=== PATIENT | female | born 1950 | race Caucasian/White ===

== ENCOUNTER 2018-07-17 07:05 | Outpatient (CLI) | payer MEDICARE ==
[~2018-07-17] VITALS: Ht 167.6 cm; Wt 130.6 kg
[~2018-07-17 07:05] MED LIST: CELLCEPT; GAMMAGARD; HYDROCORTISONE 100 MG/2 ML VIAL (J1720) IV ONE; IMMUNE GLOBULIN 10% 10 GM in APPROPRIATE DILUENT 1 EA IV ONE; IMMUNE GLOBULIN 10% 20 GM in APPROPRIATE DILUENT 1 EA IV ONE; IMMUNE GLOBULIN 10% 40 GM in APPROPRIATE DILUENT 1 EA IV ONE; IMMUNE GLOBULIN 10% 5 GM in APPROPRIATE DILUENT 1 EA IV ONE; MICA40TA PO; NAPR-855 PO; OMEP20CA3 PO; OXYB5TAB10 PO; PLAV1TAB2 PO; VITA200016 PO; VITA50005 PO; ZEBE5TAB PO; ZOLO100T PO
[2018-07-17 07:24] VITALS: BP 131/68
[2018-07-17 08:20] VITALS: BP 143/63
[2018-07-17 08:50] VITALS: BP 122/58
[2018-07-17] MEDS ORDERED: SODIUM CHLORIDE 0.9% INJ 10 ML SYR IV SCH (09:00)
[2018-07-17 09:20] VITALS: BP 121/60
[2018-07-17 10:20] VITALS: BP 154/67
[2018-07-17 11:20] VITALS: BP 183/72
== END 2018-07-17 11:45 | disposition home or self-care (01) ==
LOC: M INFU 07:05
PROVIDERS: ATTEND Internal Medicine
DX: G61.89 Other inflammatory polyneuropathies (principal)
CPT/HCPCS: 96365; 96366; 96375; J1459; J1720

== ENCOUNTER 2018-09-11 07:16 | Outpatient (CLI) | payer MEDICARE ==
[2018-09-11] VITALS (7 sets, daily range): BP systolic 120–153; BP diastolic 60–75
[~2018-09-11] VITALS: Ht 167.6 cm; Wt 130.6 kg
[~2018-09-11 07:16] MED LIST changes: -IMMUNE GLOBULIN 10% 10 GM in APPROPRIATE DILUENT 1 EA IV ONE; -IMMUNE GLOBULIN 10% 20 GM in APPROPRIATE DILUENT 1 EA IV ONE; -IMMUNE GLOBULIN 10% 40 GM in APPROPRIATE DILUENT 1 EA IV ONE; -IMMUNE GLOBULIN 10% 5 GM in APPROPRIATE DILUENT 1 EA IV ONE
[2018-09-11] MEDS ORDERED: IMMUNE GLOBULIN 10% 20 GM in APPROPRIATE DILUENT 1 EA IV ONE (08:00)
[2018-09-11] MEDS ORDERED: IMMUNE GLOBULIN 10% 10 GM in APPROPRIATE DILUENT 1 EA IV ONE (08:00)
[2018-09-11] MEDS ORDERED: IMMUNE GLOBULIN 10% 5 GM in APPROPRIATE DILUENT 1 EA IV ONE (08:00)
[2018-09-11] MEDS ORDERED: IMMUNE GLOBULIN 10% 40 GM in APPROPRIATE DILUENT 1 EA IV ONE (08:00)
[2018-09-11] MEDS ORDERED: SODIUM CHLORIDE 0.9% INJ 10 ML SYR IV SCH (09:00)
[2018-09-11] MEDS ORDERED: CELL500T PO ×2 (09:40→09:41)
[2018-09-11] MEDS ORDERED: [UNRECOGNIZED DRUG - CODE] IV (09:43)
== END 2018-09-11 12:15 | disposition home or self-care (01) ==
LOC: M INFU 07:16
PROVIDERS: ATTEND Internal Medicine
DX: G61.89 Other inflammatory polyneuropathies (principal)
CPT/HCPCS: 96365; 96366; 96375; J1459; J1720

== ENCOUNTER 2018-10-09 09:07 | Outpatient (CLI) | payer MEDICARE ==
[~2018-10-09] VITALS: Ht 167.6 cm; Wt 130.6 kg
[~2018-10-09 09:07] MED LIST changes: +CELL500T PO; -HYDROCORTISONE 100 MG/2 ML VIAL (J1720) IV ONE; -OMEP20CA3 PO; +OMEP20CA4 PO; +SODIUM CHLORIDE 0.9% INJ 10 ML SYR IV SCH; +[UNRECOGNIZED DRUG - CODE] IV
[2018-10-09 09:10] VITALS: BP 143/65
[2018-10-09] MEDS ORDERED: HYDROCORTISONE 100 MG/2 ML VIAL (J1720) IV ONE (09:30)
[2018-10-09] MEDS ORDERED: IMMUNE GLOBULIN 10% 20 GM in APPROPRIATE DILUENT 1 EA IV ONE (10:00)
[2018-10-09] MEDS ORDERED: IMMUNE GLOBULIN 10% 10 GM in APPROPRIATE DILUENT 1 EA IV ONE (10:00)
[2018-10-09] MEDS ORDERED: IMMUNE GLOBULIN 10% 40 GM in APPROPRIATE DILUENT 1 EA IV ONE (10:00)
[2018-10-09] MEDS ORDERED: IMMUNE GLOBULIN 10% 5 GM in APPROPRIATE DILUENT 1 EA IV ONE (10:00)
== END 2018-10-09 09:40 | disposition home or self-care (01) ==
LOC: M INFU 09:07
PROVIDERS: ATTEND Internal Medicine
DX: G61.81 Chronic inflammatory demyelinating polyneuritis (principal)

== ENCOUNTER → 2018-11-06 | Outpatient (CLI) | payer MEDICARE ==
[~2018-11-06] VITALS: Ht 167.6 cm; Wt 130.0 kg
[2018-11-06] VITALS (7 sets, daily range): BP systolic 117–147; BP diastolic 55–68
[~2018-11-06] MED LIST changes: +HYDROCORTISONE 100 MG/2 ML VIAL (J1720) IV ONE; +IMMUNE GLOBULIN 10% 10 GM in APPROPRIATE DILUENT 1 EA IV ONE; +IMMUNE GLOBULIN 10% 20 GM in APPROPRIATE DILUENT 1 EA IV ONE; +IMMUNE GLOBULIN 10% 40 GM in APPROPRIATE DILUENT 1 EA IV ONE; +IMMUNE GLOBULIN 10% 5 GM in APPROPRIATE DILUENT 1 EA IV ONE; +OMEP20CA3 PO; -OMEP20CA4 PO
== END ==
LOC: M INFU 07:30
PROVIDERS: ATTEND Nurse Practitioner
DX: G61.81 Chronic inflammatory demyelinating polyneuritis (principal)
CPT/HCPCS: 96523; J1459; J1720

== ENCOUNTER 2019-01-01 07:25 | Outpatient (CLI) | payer MEDICARE ==
[~2019-01-01] VITALS: Ht 167.6 cm; Wt 130.0 kg
[~2019-01-01 07:25] MED LIST changes: -HYDROCORTISONE 100 MG/2 ML VIAL (J1720) IV ONE; -IMMUNE GLOBULIN 10% 10 GM in APPROPRIATE DILUENT 1 EA IV ONE; -IMMUNE GLOBULIN 10% 20 GM in APPROPRIATE DILUENT 1 EA IV ONE; -IMMUNE GLOBULIN 10% 40 GM in APPROPRIATE DILUENT 1 EA IV ONE; -IMMUNE GLOBULIN 10% 5 GM in APPROPRIATE DILUENT 1 EA IV ONE; -OMEP20CA3 PO; +OMEP20CA4 PO; -SODIUM CHLORIDE 0.9% INJ 10 ML SYR IV SCH
[2019-01-01] MEDS ORDERED: VITA1WAF PO (07:58)
[2019-01-01] MEDS ORDERED: VENO20IN5 IV (07:58)
[2019-01-01] MEDS ORDERED: HYDROCORTISONE 100 MG/2 ML VIAL (J1720) IV ONE (08:00)
[2019-01-01 08:10] VITALS: BP 144/76
[2019-01-01] MEDS ORDERED: IMMUNE GLOBULIN 10% 10 GM in APPROPRIATE DILUENT 1 EA IV ONE (08:30)
[2019-01-01] MEDS ORDERED: IMMUNE GLOBULIN 10% 5 GM in APPROPRIATE DILUENT 1 EA IV ONE (08:30)
[2019-01-01] MEDS ORDERED: IMMUNE GLOBULIN 10% 20 GM in APPROPRIATE DILUENT 1 EA IV ONE (08:30)
[2019-01-01] MEDS ORDERED: IMMUNE GLOBULIN 10% 40 GM in APPROPRIATE DILUENT 1 EA IV ONE (08:30)
[2019-01-01 08:40] VITALS: BP 130/62
[2019-01-01] MEDS ORDERED: SODIUM CHLORIDE 0.9% INJ 10 ML SYR IV SCH (09:00)
[2019-01-01 09:10] VITALS: BP 128/70
[2019-01-01 09:40] VITALS: BP 142/62
[2019-01-01 10:50] VITALS: BP 132/70
[2019-01-01 12:00] VITALS: BP 132/76
== END 2019-01-01 12:00 | disposition home or self-care (01) ==
LOC: M INFU 07:25
PROVIDERS: ATTEND Nurse Practitioner
DX: G61.81 Chronic inflammatory demyelinating polyneuritis (principal)
CPT/HCPCS: 96365; 96366; 96375; J1459; J1720

== ENCOUNTER 2019-03-05 13:23 | Outpatient (CLI) | payer MEDICARE ==
[~2019-03-05] VITALS: Ht 167.6 cm; Wt 130.0 kg
[~2019-03-05 13:23] MED LIST changes: +VENO20IN5 IV; +VITA1WAF PO
[2019-03-05 13:30] VITALS: BP 158/68
[2019-03-05] MEDS ORDERED: IMMUNE GLOBULIN 10% 5 GM in IV 1 EA IV ONE (14:00)
[2019-03-05] MEDS ORDERED: SODIUM CHLORIDE 0.9% INJ 10 ML SYR IV ONE (14:00)
[2019-03-05] MEDS ORDERED: IMMUNE GLOBULIN 10% 20 GM in IV 1 EA IV ONE (14:00)
[2019-03-05] MEDS ORDERED: IMMUNE GLOBULIN 10% 40 GM in IV 1 EA IV ONE (14:00)
[2019-03-05] MEDS ORDERED: IMMUNE GLOBULIN 10% 10 GM in IV 1 EA IV ONE (14:00)
[2019-03-05] MEDS ORDERED: HYDROCORTISONE 100 MG/2 ML VIAL (J1720) IV ONE (14:00)
[2019-03-05 14:45] VITALS: BP 137/63
[2019-03-05 15:15] VITALS: BP 143/67
[2019-03-05 15:45] VITALS: BP 136/66
[2019-03-05 16:15] VITALS: BP 155/74
[2019-03-05 18:00] VITALS: BP 168/77
== END 2019-03-05 18:00 | disposition home or self-care (01) ==
LOC: M INFU 13:23
PROVIDERS: ATTEND Nurse Practitioner
DX: G61.81 Chronic inflammatory demyelinating polyneuritis (principal)
CPT/HCPCS: 96365; 96366; 96375; J1459; J1720

== ENCOUNTER 2019-05-01 07:12 | Outpatient (CLI) | payer MEDICARE ==
[~2019-05-01] VITALS: Ht 167.6 cm; Wt 130.0 kg
[~2019-05-01 07:12] MED LIST changes: +OMEP-172 PO; -OMEP20CA4 PO
[2019-05-01 07:15] VITALS: BP 138/59
[2019-05-01] MEDS ORDERED: IMMUNE GLOBULIN 10% 40 GM in IV 1 EA IV ONE (07:30)
[2019-05-01] MEDS ORDERED: IMMUNE GLOBULIN 10% 20 GM in IV 1 EA IV ONE (07:30)
[2019-05-01] MEDS ORDERED: HYDROCORTISONE 100 MG/2 ML VIAL (J1720 PER 1) IV ONE (07:30)
[2019-05-01] MEDS ORDERED: IMMUNE GLOBULIN 10% 10 GM in IV 1 EA IV ONE (07:30)
[2019-05-01] MEDS ORDERED: IMMUNE GLOBULIN 10% 5 GM in IV 1 EA IV ONE (07:30)
[2019-05-01 08:30] VITALS: BP 136/61
[2019-05-01 09:00] VITALS: BP 132/60
[2019-05-01] MEDS ORDERED: SODIUM CHLORIDE 0.9% INJ 10 ML SYR IV SCH (09:00)
[2019-05-01 09:30] VITALS: BP 131/66
[2019-05-01 11:45] VITALS: BP 158/72
== END 2019-05-01 11:45 | disposition home or self-care (01) ==
LOC: M INFU 07:12
PROVIDERS: ATTEND Nurse Practitioner
DX: G61.81 Chronic inflammatory demyelinating polyneuritis (principal)
CPT/HCPCS: 96365; 96366; J1459; J1720

== ENCOUNTER 2019-06-26 07:00 | Outpatient (CLI) | payer MEDICARE ==
[~2019-06-26] VITALS: Ht 167.6 cm; Wt 130.0 kg
[2019-06-26] VITALS (7 sets, daily range): BP systolic 118–135; BP diastolic 56–64
[~2019-06-26 07:00] MED LIST changes: -OMEP-172 PO; +OMEP1CAP73 PO
[2019-06-26] MEDS ORDERED: IMMUNE GLOBULIN 10% 20 GM in IV 1 EA IV ONE (07:30)
[2019-06-26] MEDS ORDERED: IMMUNE GLOBULIN 10% 10 GM in IV 1 EA IV ONE (07:30)
[2019-06-26] MEDS ORDERED: HYDROCORTISONE 100 MG/2 ML VIAL (J1720 PER 1) IV ONE (07:30)
[2019-06-26] MEDS ORDERED: IMMUNE GLOBULIN 10% 40 GM in IV 1 EA IV ONE (07:30)
[2019-06-26] MEDS ORDERED: IMMUNE GLOBULIN 10% 5 GM in IV 1 EA IV ONE (07:30)
[2019-06-26] MEDS ORDERED: IRON65TA2 PO (07:39)
[2019-06-26] MEDS ORDERED: SODIUM CHLORIDE 0.9% INJ 10 ML SYR IV SCH (09:00)
== END 2019-06-26 11:15 | disposition home or self-care (01) ==
LOC: M INFU 07:00
PROVIDERS: ATTEND Nurse Practitioner
DX: G61.81 Chronic inflammatory demyelinating polyneuritis (principal)
CPT/HCPCS: 96365; 96366; J1459; J1642; J1720

== ENCOUNTER 2019-08-21 06:57 | Outpatient (CLI) | payer MEDICARE ==
[~2019-08-21] VITALS: Ht 167.6 cm; Wt 130.0 kg
[~2019-08-21 06:57] MED LIST changes: +IRON65TA2 PO
[2019-08-21] MEDS ORDERED: IMMUNE GLOBULIN 10% 10 GM in IV 1 EA IV ONE (07:15)
[2019-08-21] MEDS ORDERED: IMMUNE GLOBULIN 10% 40 GM in IV 1 EA IV ONE (07:15)
[2019-08-21] MEDS ORDERED: HYDROCORTISONE 100 MG/2 ML VIAL (J1720 PER 1) IV ONE (07:15)
[2019-08-21] MEDS ORDERED: IMMUNE GLOBULIN 10% 5 GM in IV 1 EA IV ONE (07:15)
[2019-08-21] MEDS ORDERED: IMMUNE GLOBULIN 10% 20 GM in IV 1 EA IV ONE (07:15)
[2019-08-21] MEDS ORDERED: SODIUM CHLORIDE 0.9% INJ 10 ML SYR IV PRN (07:30)
[2019-08-21 07:40] VITALS: BP 131/60
[2019-08-21 08:15] VITALS: BP 126/59
[2019-08-21 08:45] VITALS: BP 119/58
[2019-08-21] MEDS ORDERED: SODIUM CHLORIDE 0.9% INJ 10 ML SYR IV SCH (09:00)
[2019-08-21 09:15] VITALS: BP 123/57
[2019-08-21 10:15] VITALS: BP 119/58
[2019-08-21 11:22] VITALS: BP 145/65
== END 2019-08-21 11:25 | disposition home or self-care (01) ==
LOC: M INFU 06:57
PROVIDERS: ATTEND Nurse Practitioner
DX: G61.81 Chronic inflammatory demyelinating polyneuritis (principal)
CPT/HCPCS: 96365; 96366; J1459; J1642; J1720

== ENCOUNTER 2019-10-16 06:50 | Outpatient (CLI) | payer MEDICARE ==
[~2019-10-16] VITALS: Ht 167.6 cm; Wt 110.9 kg
[2019-10-16] VITALS (7 sets, daily range): BP systolic 130–155; BP diastolic 60–70
[2019-10-16] MEDS ORDERED: CYMB60CA3 PO (07:07)
[2019-10-16] MEDS ORDERED: IMMUNE GLOBULIN 10% 5 GM in IV 1 EA IV ONE (07:15)
[2019-10-16] MEDS ORDERED: IMMUNE GLOBULIN 10% 10 GM in IV 1 EA IV ONE (07:15)
[2019-10-16] MEDS ORDERED: HYDROCORTISONE 100 MG/2 ML VIAL (J1720 PER 1) IV ONE (07:15)
[2019-10-16] MEDS ORDERED: IMMUNE GLOBULIN 10% 40 GM in IV 1 EA IV ONE (07:15)
[2019-10-16] MEDS ORDERED: SODIUM CHLORIDE 0.9% INJ 10 ML SYR IV PRN (07:15)
[2019-10-16] MEDS ORDERED: IMMUNE GLOBULIN 10% 20 GM in IV 1 EA IV ONE (07:15)
[2019-10-16] MEDS ORDERED: SODIUM CHLORIDE 0.9% INJ 10 ML SYR IV SCH (09:00)
== END 2019-10-16 12:00 | disposition home or self-care (01) ==
LOC: M INFU 06:50
PROVIDERS: ATTEND Nurse Practitioner
DX: G61.81 Chronic inflammatory demyelinating polyneuritis (principal)
CPT/HCPCS: 96365; 96366; 96375; J1459; J1642; J1720

== ENCOUNTER 2019-12-11 07:00 | Outpatient (CLI) | payer MEDICARE, OTHER ==
[~2019-12-11 07:00] MED LIST changes: +CYMB60CA3 PO
[2019-12-11] MEDS ORDERED: HYDROCORTISONE 100 MG/2 ML VIAL (J1720 PER 1) As Ordered ONE (07:35)
[2019-12-11] MEDS ORDERED: IMMUNE GLOBULIN 10% 20GM 200ML BOTTLE (PRIVIGEN) (J1459 PER 500MG) As Ordered ONE (07:36)
[2019-12-11] MEDS ORDERED: IMMUNE GLOBULIN 10% 10GM 100ML BOTTLE (PRIVIGEN) (J1459 PER 500MG) As Ordered ONE (07:36)
[2019-12-11] MEDS ORDERED: IMMUNE GLOBULIN 10% 40GM 400ML BOTTLE (PRIVIGEN) (J1459 PER 500MG) As Ordered ONE (07:36)
[2019-12-11] MEDS ORDERED: IMMUNE GLOBULIN 10% 5GM 50ML BOTTLE (PRIVIGEN) (J1459 PER 500MG) As Ordered ONE (07:36)
== END 2019-12-11 12:15 | disposition home or self-care (01) ==
LOC: M INFU 07:00
PROVIDERS: ATTEND Nurse Practitioner
DX: G61.81 Chronic inflammatory demyelinating polyneuritis (principal)
CPT/HCPCS: 96365; 96366; 96375; J1459; J1642; J1720

== ENCOUNTER 2020-02-01 11:33 | Inpatient (IN) | payer MEDICARE, OTHER ==
[~2020-02-01] VITALS: Ht 167.6 cm; Wt 109.1 kg
[2020-02-01] MEDS ORDERED: ASPI81CH10 (11:47)
[2020-02-01] MEDS ORDERED: ALEN70TA74 PO (11:47)
[2020-02-01] MEDS ORDERED: PREG75CA2 PO (11:47)
[2020-02-01] MEDS ORDERED: OXYC1TAB23 PO (11:47)
--- NOTE | 2020-02-01 12:48 | REPVR ---
PROCEDURE INFORMATION: Exam: XR Left Tibia and Fibula Exam date and time: 02/01/2020 12:33 PM Age: 69 years old Clinical indication: Other: FX yesterday with redux. ; Additional info: FX yesterday with reduction TECHNIQUE: Imaging protocol: XR Left tibia and fibula. Views: 2 views. COMPARISON: No relevant prior studies available. FINDINGS: Limitations: Visualization is largely obscured by an overlying cast. Bones/joints: There are acute fractures of the proximal and distal fibula, nondisplaced proximally and moderately displaced distally. The ankle mortise is disrupted, with lateral displacement of the distal talus in relation to the tibia, with considerable widening medially. A moderate plantar calcaneal enthesophyte is present. Soft tissues: The soft tissues appear swollen. IMPRESSION: Casted leg with fractures of the proximal distal fibula and disruption of the mortise. Electronically signed by: Piter Bennett On 02/01/2020 12:47:47 PM
[2020-02-01] MEDS ORDERED: MORPHINE 4 MG/ML 1ML VIAL/SYRINGE (J2270) IV ONE (13:00)
[2020-02-01] MEDS ORDERED: ONDANSETRON 4MG/2ML VIAL IV ONE (13:15)
[2020-02-01] MEDS: NS 1,000 ML IV SCH ×2 (13:18→22:14)
[2020-02-01] MEDS ORDERED: propofoL 200 MG/20 ML VIAL As Ordered ONE (13:49)
[2020-02-01] MEDS ORDERED: propofoL 200 MG/20 ML VIAL IV ONE (14:15)
[2020-02-01] MEDS ORDERED: ACETAMINOPHEN TAB 650MG DOSE (2X325MG) PO PRN (14:45)
[2020-02-01] MEDS ORDERED: PERCOCET 5MG/325MG TAB PO PRN (14:45)
[2020-02-01] MEDS ORDERED: BISO5TAB14 PO (15:08)
[2020-02-01] MEDS ORDERED: DULO30CA9 PO (15:08)
[2020-02-01] MEDS ORDERED: ASPI81TA26 PO (15:08)
[2020-02-01] MEDS ORDERED: DRIS50003 PO (15:08)
--- NOTE | 2020-02-01 15:10 | HPEPDOC ---
[facility] Medical History & Physical Date of Admission Feb 01, 2020 Date of Service: Feb 01, 2020 History and Physical Chief complaint: Transferred from [facility] after experiencing left ankle pain History of present illness: Patient is a 69-year-old female with a PMHx of HTN, Overactive bladder, Depression, Osteoporosis, Neuropathy, Colon CA (Dx: 03/2019; s/p Surgery and Chemotherapy), GERD who presented to [facility] for left ankle fracture. Patient has had a recent left ankle fracture 7 weeks ago, which was splinted by the ER providers and subsequently casted by orthopedics surgery Brittny Negron. Patient had a cast remain in place for approximately 5 weeks followed by a boot for 2 weeks. She has had one week that was uneventful. Patient reported that 01/30 AM she was at home and had fallen down the stairs, approximately 6 steps. Patient denied any loss of consciousness. She reported that she began to experience sudden and sever left ankle pain and was taken to the emergency room via EMS. Patient was evaluated at [facility] emergency room where she received an x-ray of her ankle. Patient was attempted to have a reduction and splinting and then was subsequently sent home at the care of her family. Patient notes that she cannot use crutches because of her neuropathy. Patient had Percocet from a prior injury but was not prescribed any additional medications. Patient was at home this morning 01/31 and is experiencing worsening left ankle pain and was brought to [facility] ER. Upon arrival, patient had orthopedic surgery consulted, who have casted the left ankle. Patient reports that currently her pain is 8-9/10, continuous throbbing nature, without any alleviating factors and aggravated by movement. Currently patient denies any headache, nausea, vomiting, chest pain, shortness breath, palpitations, cough, abdominal pain, constipation, diarrhea, urinary dis comfort or any recent fevers/chills. Patient reports that her appetite is too well and reports some fluctuations in her weight. Past Medical History: HTN, Overactive bladder, Depression, Osteoporosis, Neuropathy, Colon CA (Dx: 03/2019; s/p Surgery and Chemotherapy), GERD Past Surgical History: Colon cancer resection of partial colon and liver metastasis Appendectomy Cholecystectomy Hysterectomy Allergies: See below Medications: See below Family History: - Mother with a history of breast cancer and father with a history of heart disease Social History: - Denies the use of alcohol, tobacco or illicit drugs - Denies recent travel or sick contacts - Lives with ; she reports that her daughter and son live close by, as well as her sister who lives very close to her - Occupation; patient is currently retired. She used to work as a chair of human resources at [employer] Review of Systems: 10 point review of systems complete, all negative otherwise stated in HPI Physical exam: - Vitals: BP [147/55], HR [89], RR [14], Sat [100%NC3L], Temp [98.3F] - General: Lying in bed, Speaking in full sentences, AAOx3 - HEENT: NC, AT, PERRLA - CVS: RRR, +S1S2 - Lungs: Fair air entry bilaterally, No appreciable wheezing / rales / rhonchi - Abdomen: Soft, Non-distended, Non-tender - Extremities: R leg without edema / calf tenders, L leg with casting in place - Neuro: No focal motor or sensory deficit; 5/5 at UE bilaterally, 5/5 at RLE, 4/5 strength of L leg - limited by pain, moving toes - Skin: No visible rashes Imaging: XR Left Tib/Fib (01/31): Casted leg with fractures of the proximal distal fibula and disruption of the mortise. Assessment and Plan: Left distal fibula fracture - s/p casting (01/31) - Patient had initially fallen down the stairs on 01/30 morning after she had stumbled - No loss of consciousness - Currently, patient reports that her leg is still in pain - Patient has had casting completed this afternoon by Dr. Keegan Borrego of orthopedic surgery - Will be admitting patient to the hospital service for pain control and physical therapy - Will start Percocet for pain control - Will consider acute rehabilitation unit - Orthopedic surgery will remain on consultation HTN - BP currently well controlled - c/w Bisoprolol and Telmisartan with holding parameters Overactive bladder - c/w Oxybutynin Depression - c/w Duloxetine Osteoporosis - Patient Neuropathy - Patient reports that she takes ASA 81 and Plavix for her legs, but denies any imaging studies that have suggested. Peripheral vascular disease - Patient also reports that she takes mycophenolate mofetil for her lower extremity neuropathy - Is unclear what the definitive diagnosis of her neuropathy is will request records from outpatient facility - c/w Lyrica and Mycophenolate mofetil Colon CA - Dx: 03/2019 - s/p Surgery; patient has had partial resection of her colon including of the liver metastasis - s/p Chemotherapy for 12 week course, last dose was 10/2019 - Patient follows with [facility], Dr. Cora Mcdermott of oncology - Patient has had repeat abdominal CT scan imaging completed 11/2019, which was noted to be normal as per the patient GERD - c/w Omeprazole DVT prophylaxis - Will start Lovenox Vital Signs Vital Signs Date Time Temp Pulse Resp B/P (MAP) Pulse Ox O2 Delivery O2 Flow Rate FiO2 02/01/20 14:46 84 16 138/65 (89) 97 Room Air 02/01/20 14:10 02/01/20 11:43 98.3 Home Medications Scheduled Ascorbic Acid/Ascorbate Sodium (Vitamin C 500 mg Wafer) 500 Mg Wafer, 1 WAF PO TID Clopidogrel Bisulfate (Plavix) 75 Mg Tab, 75 MG PO DAILY Duloxetine Hcl (Cymbalta) 60 Mg Capsule.dr, 60 MG PO DAILY Ergocalciferol (Vitamin D2) (Vitamin D2) 50,000 Unit Cap, 50,000 UNIT PO 2XW Ferrous Sulfate (Iron) 325 Mg Tablet, 1 TAB PO DAILY Immun Glob G(IgG)/Gly/Iga Ov50 (Gammagard Liquid 10% Vial) 300 Ml Vial, 75 GM IV ASDIRECTED Mycophenolate Mofetil (Cellcept) 500 Mg Tablet, 1,500 MG PO QAM Mycophenolate Mofetil (Cellcept) 500 Mg Tablet, 1,000 MG PO QHS Naproxen (Naproxen) 375 Mg Tab, 375 MG PO NEEDED Omeprazole (Omeprazole) 20 Mg Cap, 20 MG PO DAILY Oxybutynin Chloride (Oxybutynin Chloride) 5 Mg Tab, 5 MG PO TID Telmisartan (Micardis) 40 Mg Tab, 40 MG PO DAILY Miscellaneous Medications Alendronate Sodium (Alendronate Sodium) 70 Mg Tablet Aspirin (Aspirin) 81 Mg Tab.chew Bisoprolol Fumarate (Zebeta) 5 Mg Tab, 5 MG PO Oxycodone HCl/Acetaminophen (Oxycodone-Acetaminophen 5-325) 1 Each Tablet Pregabalin (Pregabalin) 75 Mg Capsule Allergies Coded Allergies: meloxicam (Verified Allergy, Unknown, rash, 02/01/20) DEANNE PAN MD Feb 01, 2020 15:10
[2020-02-01 15:25] VITALS: BP 179/74
[2020-02-01 15:30] VITALS: BP 142/76
[2020-02-01] MEDS: PERCOCET 5MG/325MG TAB PO PRN ×2 (16:00→22:14)
[2020-02-01] MEDS: oxyBUTYnin 5 MG TAB PO SCH ×2 (16:48→22:14)
[2020-02-01] MEDS ORDERED: ASPIRIN 81 MG ENTERIC TAB PO SCH (21:00)
[2020-02-01] MEDS ORDERED: MYCOPHENOLATE MOFETIL 250 MG CAP (J7517) PO SCH (21:00)
[2020-02-01] MEDS ORDERED: DULoxetine 30 MG CAP (CYMBALTA) PO SCH (21:00)
[2020-02-01 22:00] VITALS: BP 150/68
[2020-02-01] MEDS: PREGABALIN 75 MG CAP(LYRICA) PO SCH (22:13)
[2020-02-02 07:18] LABS: HEMATOCRIT 29.7 % (36.0-47.0); HEMOGLOBIN 9.3 g/dl (12.0-15.5); MEAN CORPUSCULAR HEMOGLOBIN 29.4 pg (27.0-33.0); MEAN CORPUSCULAR HGB CONC 31.3 g/dl (32.0-36.5); PLATELET COUNT, AUTOMATED 103 10^3/uL (150-450); RED BLOOD COUNT 3.16 10^6/uL (4.00-5.40); WHITE BLOOD COUNT 4.1 10^3/uL (4.0-10.0)
[2020-02-02 07:37] LABS: BLOOD UREA NITROGEN 9 MG/DL (7-18); CALCIUM LEVEL 8.4 MG/DL (8.8-10.2); CARBON DIOXIDE LEVEL 28 MEQ/L (21-32); CHLORIDE LEVEL 112 MEQ/L (98-107); CREATININE FOR GFR 0.71 MG/DL (0.55-1.30); GLOMERULAR FILTRATION RATE > 60.0 (>45); GLUCOSE, FASTING 91 MG/DL (70-100); MAGNESIUM LEVEL 2.1 MG/DL (1.8-2.4); POTASSIUM SERUM 4.3 MEQ/L (3.5-5.1); SODIUM LEVEL 145 MEQ/L (136-145)
[2020-02-02] MEDS ORDERED: CLOPIDOGREL 75 MG TAB PO SCH (09:00)
[2020-02-02] MEDS ORDERED: FERROUS SULFATE 325MG TAB PO SCH (09:00)
[2020-02-02] MEDS ORDERED: MOM 30ML SUSPENSION UDC PO SCH (09:00)
[2020-02-02] MEDS ORDERED: MIRALAX *UNIT DOSE* 17GM PACKET PO SCH (09:00)
[2020-02-02] MEDS ORDERED: bisoproloL fumarate 5 MG TAB PO SCH (09:00)
[2020-02-02] MEDS ORDERED: ENOXAPARIN 40MG/0.4ML SYRINGE (J1650 PER 10MG) SC SCH (09:00)
[2020-02-02] MEDS ORDERED: DULoxetine 30 MG CAP (CYMBALTA) PO SCH (09:00)
[2020-02-02] MEDS ORDERED: OMEPRAZOLE 20 MG CAP PO SCH (09:00)
[2020-02-02] MEDS ORDERED: MYCOPHENOLATE MOFETIL 250 MG CAP (J7517) PO SCH (09:00)
[2020-02-02] MEDS ORDERED: TELMISARTAN 20 MG TAB PO SCH (09:00)
[2020-02-02] MEDS: oxyBUTYnin 5 MG TAB PO SCH (09:01)
[2020-02-02] MEDS: PREGABALIN 75 MG CAP(LYRICA) PO SCH (09:01)
[2020-02-02] MEDS: PERCOCET 5MG/325MG TAB PO PRN ×2 (09:03→15:18)
[2020-02-02 09:04] VITALS: BP 150/68
--- NOTE | 2020-02-02 11:31 | IPNPDOC ---
Text Note Date of Service The patient was seen on 02/02/20. 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 Patient was admitted to the hospital service after she had received casting emergency room by orthopedic surgery. Orthopedic surgery remains on consultation. Patient has had a recent left ankle fracture 7 weeks ago, which was splinted by the ER providers and subsequently casted by orthopedics surgery Brittny Negron. Patient had a cast remain in place for approximately 5 weeks followed by a boot for 2 weeks. She has had one week that was uneventful. Patient was seen and examined at the bedside. Currently, patient reports that her pain is better controlled but not relieved completely. Patient denies any chest pain, short of breath, palpitations, nausea, vomiting, abdominal pain, diarrhea, or urinary discomfort. Objective: Vitals (See below) General: Lying in bed, no acute distress, comfortable, AAOx3 HEENT: NC, AT CVS: +S1S2 Lungs: Fair air entry b/l, no visual wheezing, rhonchi or rales Abdomen: Soft, ND, NT Extremities: - Edema, - Calf tenderness, left lower extremity with casting in place Assessment and plan: Left distal fibula fracture - s/p casting (01/31) - Patient had initially fallen down the stairs on 01/30 morning after she had stumbled - No loss of consciousness - Reports improvement of pain - Patient has had casting completed by Dr. Keegan Borrego of orthopedic surgery on 01/31 - c/w PT and OT / ARU screen - c/w Pain control - Orthopedic surgery will remain on consultation HTN - BP currently well controlled - c/w Bisoprolol and Telmisartan with holding parameters Overactive bladder - c/w Oxybutynin Depression - c/w Duloxetine Osteoporosis - Patient Neuropathy - 2/2 CIDP - Patient reports that she takes ASA 81 and Plavix for her legs, but denies any imaging studies that have suggested peripheral vascular disease - Provide with patient that she has chronic inflammatory demyelinating polyneuropathy and follows with a neurologist in [place], Dr. Vicente - c/w Lyrica and Mycophenolate mofetil Colon CA - Dx: 03/2019 - s/p Surgery; patient has had partial resection of her colon including of the liver metastasis - s/p Chemotherapy for 12 week course, last dose was 10/2019 - Patient follows with [facility], Dr. Cora Mcdermott of oncology - Patient has had repeat abdominal CT scan imaging completed 11/2019, which was noted to be normal as per the patient GERD - c/w Omeprazole DVT prophylaxis - c/w Lovenox Disposition: - Anticipate discharge within the next 24-48 hours VS,Fishbone, I+O VS, Fishbone, I+O Laboratory Tests 02/02/20 06:56 Vital Signs Date Time Temp Pulse Resp B/P (MAP) Pulse Ox O2 Delivery O2 Flow Rate FiO2 02/02/20 09:33 18 Room Air 02/02/20 09:04 86 150/68 02/01/20 22:00 97.7 96 02/01/20 14:10 I&O- Last 24 Hours up to 6 AM 02/02/20 05:59 Intake Total 1180 ml Output Total 1600 ml Balance -420 ml DEANNE PAN MD Feb 02, 2020 11:31
[2020-02-02] MEDS ORDERED: LOVE1INJ SC (12:36)
[2020-02-02] MEDS ORDERED: OXYC1TAB23 PO (12:36)
--- NOTE | 2020-02-02 12:40 | DS.PDOC ---
Discharge Summary General Date of Admission Feb 01, 2020 at 14:44 Date of Discharge 02/02/2020 Discharge Summary PROCEDURES PERFORMED DURING STAY: Testing performed in the emergency room on 01/[address] 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 Patient was admitted to the hospital service after she had received casting emergency room by orthopedic surgery. Orthopedic surgery remains on consultation. Patient has had a recent left ankle fracture 7 weeks ago, which was splinted by the ER providers and subsequently casted by orthopedics surgery Brittny Negron. Patient had a cast remain in place for approximately 5 weeks followed by a boot for 2 weeks. She has had one week that was uneventful. HOSPITAL COURSE: Left distal fibula fracture - s/p casting (01/31) - Patient had initially fallen down the stairs on 01/30 morning after she had stumbled - No loss of consciousness - Reports improvement of pain - Patient has had casting completed by Dr. Keegan Borrego of orthopedic surgery on 01/31 - c/w PT and OT; will be transitioned to acute rehabilitation unit for continued physical therapy - c/w Pain control - Orthopedic surgery will remain on consultation HTN - BP currently well controlled - c/w Bisoprolol and Telmisartan with holding parameters Overactive bladder - c/w Oxybutynin Depression - c/w Duloxetine Osteoporosis - Patient Neuropathy - 2/2 CIDP - Patient reports that she takes ASA 81 and Plavix for her legs, but denies any imaging studies that have suggested peripheral vascular disease - Provide with patient that she has chronic inflammatory demyelinating polyneuropathy and follows with a neurologist in [place], Dr. Vicente - c/w Lyrica and Mycophenolate mofetil Colon CA - Dx: 03/2019 - s/p Surgery; patient has had partial resection of her colon including of the liver metastasis - s/p Chemotherapy for 12 week course, last dose was 10/2019 - Patient follows with [facility], Dr. oCra Mcdermott of oncology - Patient has had repeat abdominal CT scan imaging completed 11/2019, which was noted to be normal as per the patient GERD - c/w Omeprazole DVT prophylaxis - c/w Lovenox DISCHARGE MEDICATIONS: Please see below. ALLERGIES: Please see below. PHYSICAL EXAMINATION ON DISCHARGE: Vitals (See below) General: Lying in bed, no acute distress, comfortable, AAOx3 HEENT: NC, AT CVS: +S1S2 Lungs: Fair air entry b/l, no visual wheezing, rhonchi or rales Abdomen: Soft, nondistended and nontender Extremities: No evidence of edema, - Calf tenderness, left lower extremity with casting in place LABORATORY DATA: Please see below. ACTIVITY: [As tolerated]. DISCHARGE PLAN: Follow-up with Dr. Cruz upon transfer to acute rehabilitation and Dr. Borrego within 7 days Remain complaint with treatment plan and medications Return to the ER if you experience any problems DISPOSITION: Acute rehabilitation unit DISCHARGE CONDITION: [Stable]. TIME SPENT ON DISCHARGE: 35 minutes. Vital Signs/I&Os Vital Signs Date Time Temp Pulse Resp B/P (MAP) Pulse Ox O2 Delivery O2 Flow Rate FiO2 02/02/20 09:33 18 Room Air 02/02/20 09:04 86 150/68 02/01/20 22:00 97.7 96 02/01/20 14:10 I&O- Last 24 Hours up to 6 AM 02/02/20 06:00 Intake Total 1180 ml Output Total 1600 ml Balance -420 ml Laboratory Data Labs 24H Laboratory Tests 2 02/02/20 06:56: Nucleated Red Blood Cells % (auto) 0.0, Anion Gap 5L, Glomerular Filtration Rate > 60.0, Calcium Level 8.4L, Magnesium Level 2.1 CBC/BMP Laboratory Tests 02/02/20 06:56 Discharge Medications Scheduled Alendronate Sodium (Alendronate Sodium) 70 Mg Tablet, 70 MG PO 1XWK, (Reported) SUNDAYS Ascorbic Acid/Ascorbate Sodium (Vitamin C 500 mg Wafer) 500 Mg Wafer, 500 MG PO TID, (Reported) Aspirin (Aspirin EC) 81 Mg Tablet., 81 MG PO QHS, (Reported) Bisoprolol Fumarate (Bisoprolol Fumarate) 5 Mg Tablet, 5 MG PO DAILY, (Reported) Clopidogrel Bisulfate (Plavix) 75 Mg Tab, 75 MG PO DAILY, (Reported) Duloxetine Hcl (Cymbalta) 60 Mg Capsule.dr, 60 MG PO DAILY, (Reported) Duloxetine Hcl (Duloxetine HCl) 30 Mg Capsule.dr, 30 MG PO QHS, (Reported) Enoxaparin Sodium (Lovenox) 40 Mg/0.4 Ml Syringe, 40 MG SC DAILY Ergocalciferol (Vitamin D2) (Drisdol) 1,250 Mcg Capsule, 1,250 MCG PO 2XW, (Reported) SHELLEY ROQUE Ferrous Sulfate (Iron) 325 Mg Tablet, 325 MG PO DAILY, (Reported) Immun Glob G(IgG)/Gly/Iga Ov50 (Gammagard Liquid 10% Vial) 300 Ml Vial, 75 GM IV ASDIRECTED, (Reported) EVERY 8 WEEKS. DUE TO GET ON 02/05. Mycophenolate Mofetil (Cellcept) 500 Mg Tablet, 1,500 MG PO DAILY, (Reported) Mycophenolate Mofetil (Cellcept) 500 Mg Tablet, 1,000 MG PO QHS, (Reported) Omeprazole (Omeprazole) 20 Mg Cap, 20 MG PO DAILY, (Reported) Oxybutynin Chloride (Oxybutynin Chloride) 5 Mg Tab, 5 MG PO TID, (Reported) Pregabalin (Pregabalin) 75 Mg Capsule, 150 MG PO BID, (Reported) Telmisartan (Micardis) 40 Mg Tab, 40 MG PO DAILY, (Reported) Scheduled PRN Naproxen (Naproxen) 375 Mg Tab, 375 MG PO Q12H PRN for PAIN, (Reported) Oxycodone HCl/Acetaminophen (Oxycodone-Acetaminophen 5-325) 1 Each Tablet, 1-2 TAB PO Q4H PRN for PAIN Allergies Coded Allergies: meloxicam (Verified Allergy, Unknown, rash, 02/01/20) DEANNE PAN MD Feb 02, 2020 12:40
[2020-02-02 14:00] VITALS: BP 126/58
[2020-02-03] MEDS ORDERED: FLUBLOK(EGG FREE)(QUAD)INFLUENZA VACC 0.5ML SYRINGE 18YRS & OLDER IM ONE (09:00)
[2020-02-03] MEDS ORDERED: VITAMIN D 50,000 UNITS CAPSULE (ERGOCALCIFEROL 1.25MG) PO SCH (09:00)
[2020-02-03] MEDS ORDERED: PREVNAR 13 VACCINE SYRINGE IM ONE (09:00)
--- NOTE | 2020-02-03 15:44 | CR ---
DATE OF CONSULTATION: 02/01/2020 CHIEF COMPLAINT: Left ankle fracture. HISTORY OF PRESENT ILLNESS: This 69-year-old female was consulted and admitted today at 1 p.m. by the emergency department at [facility], Suzi Callejas. The provider at [facility] had called me in regard to long-leg or short-leg splint for ankle fracture. Originally they had attempted a closed reduction, it sounds like, and splinting; however, the patient was not coping at home and presented to the hospital this morning. Patient recently had a metatarsal fracture, which Rosi Pedraza at the [facility] group were following for that. She had a trip and fall yesterday at 9 a.m. No other injury. No head injury or loss of consciousness. MEDICAL HISTORY: 1. Neuropathy. 2. Colon cancer with chemotherapy. MEDICATIONS: Omeprazole, Plavix, oxybutynin, Fosamax, Micardis, Zebeta, CellCept, Iron, ASA. ALLERGIES: MOBIC.. SURGICAL HISTORY: 1. Appendectomy. 2. Gallbladder removal. 3. Hysterectomy. 4. Colon cancer resection. SOCIAL HISTORY: She lives in [place]. Lives with her . Lives in a house. Nonsmoker. PHYSICAL EXAMINATION: A 69-year-old female. She has an elevated body mass index (BMI). She is alert and oriented times three. She has a closed ankle fracture on the left side. There is already moderate swelling. No wrinkling of the skin. No fracture blisters but moderate swelling on either side of the ankle with fairly moderate amount of bruising. No pain in the foot. Pain at the ankle. No pain proximally. Calves are soft. No pain at the knee. Normal sensation and motor foot of the foot. Foot is warm and well perfused. Good pedal pulses. Strong dorsalis pedis pulses. She can wiggle her toes. Radiographs were reviewed, AP, lateral, and oblique of the tibia-fibula. This shows an obvious an obvious Rocha C ankle fracture with what looks to be lateral displacement of the talus underneath the tibia. There is widening of the mortise. There is a fibula fracture that is oblique. No obvious medial malleolus fracture. ASSESSMENT AND PLAN: This 69-year-old female has an ankle fracture with obvious disruption of the syndesmosis and lateral talar shift that has not been properly reduced. I recommend closed reduction and splinting. We performed that for her today. She will have to be admitted under the hospitalist. I have communicated to Britta, the QNP at [facility]. She will ask the hospitalist to admit her due to her inability cope at home as well as inability to use the crutches. She will eventually need open reduction, internal fixation for this highly unstable ankle fracture pattern. She understands the risks. In the meantime, she will be made strict nonweightbearing, strict elevation, pending surgery within the next 1-2 weeks, ideally when the swelling comes down. Patient understands. There are no further questions. PROCEDURE NOTE: We talked about the pros, cons, risks, benefits of closed reduction and splinting in the emergency department. Specific risks include, but are not limited to, cast irritation, cast jha, failure to achieve or maintain closed reduction, as well as damage to surrounding structures. She understands and signed the consent form for the procedure. Conscious sedation was achieved by the emergency department surgeon concession attendant after a time-out was performed. Longitudinal traction as well as flexion of the hip and knee was performed, and 3-sided plaster of Magda splint with appropriate padding and over-wrapped with 6-inch Nikolai bandage was then placed, and then foot was placed in slight plantarflexion and 3-point molding was achieved to shift the talus back medially underneath the distal tibia. Radiographs were taken using the mini C-arm fluoroscopy, which seemed to be appropriately reduced to remove the pressure off the cartilage. Splint was allowed to fully harden allowing pictures to be saved onto the system. She was neurovascularly intact with normal sensation and motor function and as such normal capillary refill. MTDD
--- NOTE | 2020-02-08 15:50 | REP ---
C-ARM VIEWS OF THE LEFT ANKLE TECHNIQUE: Two C-arm views of the left ankle are performed status post reduction of ankle dislocation. FINDINGS: The tibia and fibula appear well aligned with the talus with the ankle mortise appearing anatomic. There is an overlying cast. There is an oblique fracture of the distal fibula with mild lateral displacement. FLUOROSCOPY TIME: 11 seconds. MTDD
== END 2020-02-02 15:45 | DRG 563 ==
LOC: M ED 11:33 → EDBD 11:33 → M ED INP 14:44 → ENRESERV 14:56 → M MS5PR 15:20
PROVIDERS: ADMIT Internal Medicine; ATTEND Internal Medicine
PROC: 0QSJXZZ Reposition Right Fibula, External Approach (ICD-10-PCS; principal; 2020-02-01)
DX: S82.492A Other fracture of shaft of left fibula, initial encounter for closed fracture (principal); I10 Essential (primary) hypertension; N32.81 Overactive bladder; F32.9 Major depressive disorder, single episode, unspecified; M81.0 Age-related osteoporosis without current pathological fracture; G62.9 Polyneuropathy, unspecified; Z85.038 Personal history of other malignant neoplasm of large intestine; K21.9 Gastro-esophageal reflux disease without esophagitis; Z90.49 Acquired absence of other specified parts of digestive tract; Z92.21 Personal history of antineoplastic chemotherapy; Z79.02 Long term (current) use of antithrombotics/antiplatelets; Z79.899 Other long term (current) drug therapy; Z88.6 Allergy status to analgesic agent; W10.9XXA Fall (on) (from) unspecified stairs and steps, initial encounter; Y92.009 Unspecified place in unspecified non-institutional (private) residence as the place of occurrence of the external cause; Y99.8 Other external cause status

== ENCOUNTER 2020-02-02 13:59 | Inpatient (IN) | payer MEDICARE, OTHER ==
[~2020-02-02] VITALS: Ht 167.6 cm; Wt 122.5 kg
[~2020-02-02 13:59] MED LIST changes: +ALEN70TA74 PO; +ASPI81CH10; +ASPI81TA26 PO; +BISO5TAB14 PO; +DRIS50003 PO; +DULO30CA9 PO; +LOVE1INJ SC; +OXYC1TAB23 PO; +PREG75CA2 PO
--- NOTE | 2020-02-02 15:21 | HPEPDOC ---
Saw Setter Note DATE OF ADMISSION: 02-02-20 DATE OF SERVICE: 02-02-20 TIME OF ADMISSION: Please refer to physician's admission order. SOURCE OF ADMISSION INFORMATION: [facility] record and patient CHIEF COMPLAINT: left ankle fracture HISTORY OF PRESENT ILLNESS: 69F pmh HTN, osteoporosis, depression, peripheral neuropathy from CIDP, colon cancer s/p chemo and resection, overactive bladder who presented to [facility] ED on 02-01-20 with left ankle pain following a fracture sustained 7 weeks prior and splinted, but fell down set of stairs at home on 01-31-20 with worsening of her ankle fracture. She was seen by orthopedics who casted her ankle and made her NWB. Labs confirmed anemia, her blood pressure was elevated, and she was placed on supplemental 02 for desaturations. She was evaluated by therapy, found to have impairments in mobility and ADLs and deemed medical appropriate for discharge to ARU on 02-02-20. REVIEW OF SYSTEMS: The following is a completed review of systems and has been reviewed. Review of systems otherwise unremarkable. PAIN: Patient self reports left ankle pain EYES: No recent vision changes EARS, NOSE, & THROAT: No throat pain, or dysphagia, or rhinorrhea CARDIOVASCULAR: Denies chest pain or palpitations PULMONARY: Denies shortness of breath GASTROINTESTINAL: Denies constipation/diarrhea GENITOURINARY: denies dysuria MUSCULOSKELETAL:left ankle fracture NEUROLOGICAL:+peripheral polyneuropathy HEMATOLOGICAL: denies easy bruising SKIN: no rash PSYCHIATRIC: Unremarkable All other review of systems found to be negative. PAST MEDICAL HISTORY: as per hpi PAST SURGICAL HISTORY: Hysterectomy, appendectomy, cholecystectomy, colon cancer s/p resection ALLERGIES: Please see below. MEDICATIONS: Please see below. FAMILY HISTORY: Cardiac and cancer SOCIAL HISTORY:no etoh/illicit drugs/smoking DIET: low sodium PHYSICAL EXAMINATION: VITAL SIGNS: Please see below. GENERAL: Pleasant and cooperative. No acute distress. obese HEENT: PERRL. Extraocular movements intact. Clear conjunctiva CARDIOVASCULAR: Regular rate and rhythm. No murmurs, rubs, or gallops LUNGS: Clear to auscultation bilaterally. No wheezes. No rhonchi ABDOMEN: Soft, nontender, nondistended. Positive bowel sounds. Normal active bowel sounds NEUROLOGICAL: Alert and oriented times three. Cranial nerves II through XII grossly intact. Sensation decreased to light touch bilat LE EXTREMITIES: 5\5 strength bilateral upper extremities. 5\5 strength right lower extremity. >3/5 left hip flexor, able to wiggle toes (limited due to casting) 5 SKIN: intact LABORATORY DATA: Please see below. IMAGING:Imaging documentation personally reviewed by record FUNCTIONAL STATUS: Premorbid: Independent with all activities of daily life as well as mobility On Admission:Min assist for bed mobility, functional transfers, dressing, ambulation 2 feet GOALS: Mod-I household distances, toileting, functional transfers, dressing, to ileting ASSESSMENT:69-year-old F with past medical history of HTN and colon cancer who presents status post fall with left fibula fracture PLAN: 1. Rehab- PT/OT advance mobility and ADLs, strengthen/stretch/maintain ROM all 4 limbs, NWB LLE 2. 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 CArdiac- hx of HTN with elevated BPs on inpatient unit, will c/u to monitor address pain,a nd adjust meds prn- medicine consulted to asssit in overall management -c/u ASA and plavix, hx of PVD or CAD unknown 4. Resp- monitor for infection, encourage incentive spirometry 5. - overactive bladder c/u Ditropan, monitor for infection 6. Ortho- NWB to LLE for ankle fracture, ortho consulted 7. GI ppx- Prilosec 8. DVT ppx- Lovenox 9. Pain- c/u Lyrica, tylenol, oxycodone prn 10. Psych- cu Cymbalta for depression 11. Dispo- TBD POST ADMISSION PHYSICIAN EVALUATION: Medical and functional status: Description of medical status, medical assessment: As above. Rehabilitation diagnosis and current and prior cold morbid medical conditions as above. Risk of complications and plans to mitigate them as above. Description of functional status current status is as above. Prior status as above. Status compared to preadmission: There are no clinically significant differences between the patient's current status and the information described on the preadmission screening document. Treatment plan anticipated: Treatment plan is as described above. Required disciplines including physical therapy, occupational therapy, others as noted above. Intensity of services: 3 hours a day, 6 days a week. Special considerations: There are no specific special or safety considerations that would likely preclude immediate implementation of an intensive rehabilitation program or subsequently influence the plan of care. ATTESTATION: Considering all the information above, it is my best judgment that this patient requires intensive rehabilitation therapy as described above and an inpatient hospital environment due to the complexity of nursing, medical, and rehabilitation needs required by the patient. Furthermore, this patient can reasonably be expected to participate in an benefit from an inpatient rehabilitation stay with an interdisciplinary team approach to the delivery of rehabilitation care under the direction and supervision of rehabilitation physician. PROGNOSIS: Excellent. ESTIMATED LENGTH OF STAY:10-14 days. PROJECTED DISCHARGE DESTINATION: Home with family support and any durable medical equipment required to increase functional safety and mobility. TIME SPENT COUNSELING AND COORDINATING INITIAL CARE: Greater than 70 minutes. Vital Signs Vital Signs Date Time Temp Pulse Resp B/P (MAP) Pulse Ox O2 Delivery O2 Flow Rate FiO2 02/02/20 15:54 96.8 77 17 136/62 (86) 99 Room Air Home Medications Scheduled Alendronate Sodium (Alendronate Sodium) 70 Mg Tablet, 70 MG PO 1XWK, (Reported) SUNDAYS Ascorbic Acid/Ascorbate Sodium (Vitamin C 500 mg Wafer) 500 Mg Wafer, 500 MG PO TID, (Reported) Aspirin (Aspirin EC) 81 Mg Tablet.dr, 81 MG PO QHS, (Reported) Bisoprolol Fumarate (Bisoprolol Fumarate) 5 Mg Tablet, 5 MG PO DAILY, (Reported) Clopidogrel Bisulfate (Plavix) 75 Mg Tab, 75 MG PO DAILY, (Reported) Duloxetine Hcl (Cymbalta) 60 Mg Capsule.dr, 60 MG PO DAILY, (Reported) Duloxetine Hcl (Duloxetine HCl) 30 Mg Capsule.dr, 30 MG PO QHS, (Reported) Enoxaparin Sodium (Lovenox) 40 Mg/0.4 Ml Syringe, 40 MG SC DAILY Ergocalciferol (Vitamin D2) (Drisdol) 1,250 Mcg Capsule, 1,250 MCG PO 2XW, (Reported) TU, TH Ferrous Sulfate (Iron) 325 Mg Tablet, 325 MG PO DAILY, (Reported) Immun Glob G(IgG)/Gly/Iga Ov50 (Gammagard Liquid 10% Vial) 300 Ml Vial, 75 GM IV ASDIRECTED, (Reported) EVERY 8 WEEKS. DUE TO GET ON 02/05. Mycophenolate Mofetil (Cellcept) 500 Mg Tablet, 1,500 MG PO DAILY, (Reported) Mycophenolate Mofetil (Cellcept) 500 Mg Tablet, 1,000 MG PO QHS, (Reported) Omeprazole (Omeprazole) 20 Mg Cap, 20 MG PO DAILY, (Reported) Oxybutynin Chloride (Oxybutynin Chloride) 5 Mg Tab, 5 MG PO TID, (Reported) Pregabalin (Pregabalin) 75 Mg Capsule, 150 MG PO BID, (Reported) Telmisartan (Micardis) 40 Mg Tab, 40 MG PO DAILY, (Reported) Scheduled PRN Naproxen (Naproxen) 375 Mg Tab, 375 MG PO Q12H PRN for PAIN, (Reported) Oxycodone HCl/Acetaminophen (Oxycodone-Acetaminophen 5-325) 1 Each Tablet, 1-2 TAB PO Q4H PRN for PAIN Allergies Coded Allergies: meloxicam (Verified Allergy, Unknown, rash, 02/01/20) A-FIB/CHADSVASC A-FIB History Current/History of A-Fib/PAF?: No HELEN CHACKO MD Feb 02, 2020 15:21
[2020-02-02] MEDS ORDERED: BISACODYL 10 MG SUPP PR PRN (15:30)
[2020-02-02] MEDS ORDERED: MOM 30ML SUSPENSION UDC PO PRN (15:30)
[2020-02-02 15:54] VITALS: BP 136/62
[2020-02-02] MEDS: oxyBUTYnin 5 MG TAB PO SCH ×2 (18:13→21:53)
[2020-02-02] MEDS: oxyCODONE 5MG TAB PO PRN ×2 (18:52→21:53)
[2020-02-02 20:16] VITALS: BP 131/90
[2020-02-02] MEDS: DOCUSATE SODIUM 100 MG CAP PO SCH (21:00)
[2020-02-02] MEDS: SENNA 8.6 MG TAB (SENOKOT) PO SCH (21:00)
[2020-02-02] MEDS: ASPIRIN 81 MG ENTERIC TAB PO SCH (21:52)
[2020-02-02] MEDS: ACETAMINOPHEN 500 MG TAB PO SCH (21:53)
[2020-02-02] MEDS: PREGABALIN 75 MG CAP(LYRICA) PO SCH (21:54)
[2020-02-02] MEDS: DULoxetine 30 MG CAP (CYMBALTA) PO SCH (21:54)
[2020-02-02] MEDS: MYCOPHENOLATE MOFETIL 250 MG CAP (J7517) PO SCH (21:55)
[2020-02-03] MEDS: oxyCODONE 5MG TAB PO PRN ×3 (03:26→21:50)
[2020-02-03 06:13] VITALS: BP 151/77
[2020-02-03 06:14] LABS: BASO % 0.2 % (0.0-1.0); EOS # 0.1 10^3/uL (0.0-0.5); EOS % 2.2 % (0.0-3.0); HEMATOCRIT 30.9 % (36.0-47.0); HEMOGLOBIN 9.3 g/dl (12.0-15.5); LYMPH # 1.3 10^3/uL (1.5-5.0); LYMPH % 26.2 % (24.0-44.0); MEAN CORPUSCULAR HEMOGLOBIN 28.1 pg (27.0-33.0); MEAN CORPUSCULAR HGB CONC 30.1 g/dl (32.0-36.5); MEAN CORPUSCULAR VOLUME 93.4 fl (80.0-96.0); MONO # 0.6 10^3/uL (0.0-0.8); MONO % 12.2 % (0.0-5.0); PLATELET COUNT, AUTOMATED 125 10^3/uL (150-450); RED BLOOD COUNT 3.31 10^6/uL (4.00-5.40)
[2020-02-03 06:38] LABS: ALBUMIN 2.7 GM/DL (3.2-5.2); ALT/SGPT 21 U/L (12-78); BILIRUBIN,TOTAL 0.6 MG/DL (0.2-1.0); BLOOD UREA NITROGEN 10 MG/DL (7-18); CARBON DIOXIDE LEVEL 26 MEQ/L (21-32); CHLORIDE LEVEL 110 MEQ/L (98-107); CREATININE FOR GFR 0.74 MG/DL (0.55-1.30); GLOMERULAR FILTRATION RATE > 60.0 (>45); GLUCOSE, FASTING 108 MG/DL (70-100); POTASSIUM SERUM 4.4 MEQ/L (3.5-5.1); SODIUM LEVEL 140 MEQ/L (136-145); TOTAL PROTEIN 6.1 GM/DL (6.4-8.2)
[2020-02-03] MEDS: ENOXAPARIN 40MG/0.4ML SYRINGE (J1650 PER 10MG) SC SCH (07:51)
[2020-02-03] MEDS: DOCUSATE SODIUM 100 MG CAP PO SCH ×2 (07:52→21:00)
[2020-02-03] MEDS: PREGABALIN 75 MG CAP(LYRICA) PO SCH ×2 (07:52→21:49)
[2020-02-03] MEDS: DULoxetine 30 MG CAP (CYMBALTA) PO SCH ×2 (07:52→21:51)
[2020-02-03] MEDS: TELMISARTAN 20 MG TAB PO SCH (07:53)
[2020-02-03] MEDS: bisoproloL fumarate 5 MG TAB PO SCH (07:55)
[2020-02-03] MEDS: ACETAMINOPHEN 500 MG TAB PO SCH ×3 (07:56→21:49)
[2020-02-03] MEDS: FERROUS SULFATE 325MG TAB PO SCH (07:56)
[2020-02-03] MEDS: CLOPIDOGREL 75 MG TAB PO SCH (07:56)
[2020-02-03] MEDS: oxyBUTYnin 5 MG TAB PO SCH ×3 (07:56→21:54)
[2020-02-03] MEDS: MYCOPHENOLATE MOFETIL 250 MG CAP (J7517) PO SCH ×2 (07:57→21:55)
[2020-02-03] MEDS: OMEPRAZOLE 20 MG CAP PO SCH (07:57)
--- NOTE | 2020-02-03 08:01 | HPEPDOC ---
[facility] Medical History & Physical Date of Admission Feb 03, 2020 Date of Service: Feb 03, 2020 Attending Physician: FELIPE LIMA MD History and Physical CHIEF COMPLAINT: ankle fracture HISTORY OF PRESENT ILLNESS: Patient is a 69-year-old female with a PMHx of HTN, Overactive bladder, Depression, Osteoporosis, Neuropathy, Colon CA (Dx: 03/2019; s/p Surgery and Chemotherapy), GERD who presented to [facility] for left ankle fracture. Patient has had a recent left ankle fracture 7 weeks ago, which was splinted by the ER providers and subsequently casted by orthopedics surgery. Patient had a cast remain in place for approximately 5 weeks followed by a boot for 2 weeks. She has had one week that was uneventful. On 01/30. Patient sustained a fall down the stairs with worsening pain over prior ankle fracture. She returned to [facility], orthopedic service casted her ankle and recommended she be nonweightbearing. She was evaluated by therapy and deemed appropriate for discharge to acute rehabilitation unit on 02/01. PAST MEDICAL HISTORY: 1. Neuropathy. 2. Colon cancer with chemotherapy. 3. HTN PAST SURGICAL HISTORY: 1. Appendectomy. 2. Gallbladder removal. 3. Hysterectomy. 4. Colon cancer resection. SOCIAL HISTORY: Patient denies smoking Patient denies etoh use Patient denies illicit drug use FAMILY HISTORY: patient reports hx of cancer and heart disease but unable to specify ALLERGIES: Please see below. REVIEW OF SYSTEMS: CONSTITUTIONAL: patient denies fevers, chills HEENT: patient denies blurred vision, loss of vision, headache,. CARDIOVASCULAR: patient denies chest pain, palpitations. RESPIRATORY: patient denies shortness of breath, cough, hemoptysis. GASTROINTESTINAL: patient denies abdominal pain, n/v/d, blood in stool. GENITOURINARY: patient denies dysuria, discharge. SKIN: patient denies rashes. MUSCULOSKELETAL: l ankle fracture, casted NEUROLOGICAL: patient denies focal weakness, numbness, seizures. PSYCHIATRIC: patient denies SI/HI. ENDOCRINE: patient denies polyuria, heat intolerance, cold intolerance. HEMATOLOGIC/LYMPHATIC: patient denies easy bruising. HOME MEDICATIONS: Please see below. PHYSICAL EXAMINATION: VITAL SIGNS: please see below General: NAD, comfortable HEENT: PERRLA, EOMI, sclerae clear Neck: supple, normal ROM, no JVD Respiratory: lungs CTAB, no wheeze, no rales, no crackles CVS: RRR, normal S1, S2, no murmurs Abdo: soft, no masses, no hepatosplenomegaly, BS+, no rebound tenderness Extremities: no edema, pulses 2+ MSK: in wheelchair, L ankle casted Neuro: no focal neuro deficits, moving all 4 extremities, CN2-12 intact. Psych: calm, cooperative, AAO x 3 LABORATORY DATA: See below. MICROBIOLOGY: Please see below. ASSESSMENT: 69-year-old female with history of hypertension, colon cancer, and uropathy admitted to ARU for a rehab Fracture was casted. Patient is nonweightbearing. PLAN: Left distal fibula fracture - s/p casting (01/31) - Patient had initially fallen down the stairs on 01/30 morning after she had stumbled - No loss of consciousness - Reports improvement of pain - Patient has had casting completed by Dr. 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 Vicente - c/w Lyrica and Mycophenolate mofetil Colon CA - Dx: 03/2019 - s/p Surgery; patient has had partial resection of her colon including of the liver metastasis - s/p Chemotherapy for 12 week course, last dose was 10/2019 - Patient follows with [facility], Dr. Cora Mcdermott of oncology - Patient has had repeat abdominal CT scan imaging completed 11/2019, which was noted to be normal as per the patient GERD - c/w Omeprazole DVT prophylaxis - c/w Lovenox Vital Signs Vital Signs Date Time Temp Pulse Resp B/P (MAP) Pulse Ox O2 Delivery O2 Flow Rate FiO2 9/29/20 06:13 97.6 89 17 151/77 (101) 96 Room Air Laboratory Data Labs 24H Laboratory Tests 2 02/03/20 06:01: Immature Granulocyte % (Auto) 0.2, Neutrophils (%) (Auto) 59.0, Lymphocytes (%) (Auto) 26.2, Monocytes (%) (Auto) 12.2H, Eosinophils (%) (Auto) 2.2, Basophils (%) (Auto) 0.2, Neutrophils # (Auto) 3.0, Lymphocytes # (Auto) 1.3L, Monocytes # (Auto) 0.6, Eosinophils # (Auto) 0.1, Basophils # (Auto) 0.0, Nucleated Red Blood Cells % (auto) 0.0, Anion Gap 4L, Glomerular Filtration Rate > 60.0, Calcium Level 9.0, Total Bilirubin 0.6, Aspartate Amino Transf (AST/SGOT) 31, Alanine Aminotransferase (ALT/SGPT) 21, Alkaline Phosphatase 108, Total Protein 6.1L, Albumin 2.7L, Albumin/Globulin Ratio 0.8L CBC/BMP Laboratory Tests 02/03/20 06:01 Home Medications Scheduled Alendronate Sodium (Alendronate Sodium) 70 Mg Tablet, 70 MG PO 1XWK SUNDAYS Ascorbic Acid/Ascorbate Sodium (Vitamin C 500 mg Wafer) 500 Mg Wafer, 500 MG PO TID Aspirin (Aspirin EC) 81 Mg Tablet.dr, 81 MG PO QHS Bisoprolol Fumarate (Bisoprolol Fumarate) 5 Mg Tablet, 5 MG PO DAILY Clopidogrel Bisulfate (Plavix) 75 Mg Tab, 75 MG PO DAILY Duloxetine Hcl (Cymbalta) 60 Mg Capsule.dr, 60 MG PO DAILY Duloxetine Hcl (Duloxetine HCl) 30 Mg Capsule.dr, 30 MG PO QHS Enoxaparin Sodium (Lovenox) 40 Mg/0.4 Ml Syringe, 40 MG SC DAILY Ergocalciferol (Vitamin D2) (Drisdol) 1,250 Mcg Capsule, 1,250 MCG PO 2XW , Ferrous Sulfate (Iron) 325 Mg Tablet, 325 MG PO DAILY Immun Glob G(IgG)/Gly/Iga Ov50 (Gammagard Liquid 10% Vial) 300 Ml Vial, 75 GM IV ASDIRECTED EVERY 8 WEEKS. DUE TO GET ON 02/05. Mycophenolate Mofetil (Cellcept) 500 Mg Tablet, 1,500 MG PO DAILY Mycophenolate Mofetil (Cellcept) 500 Mg Tablet, 1,000 MG PO QHS Omeprazole (Omeprazole) 20 Mg Cap, 20 MG PO DAILY Oxybutynin Chloride (Oxybutynin Chloride) 5 Mg Tab, 5 MG PO TID Pregabalin (Pregabalin) 75 Mg Capsule, 150 MG PO BID Telmisartan (Micardis) 40 Mg Tab, 40 MG PO DAILY Scheduled PRN Naproxen (Naproxen) 375 Mg Tab, 375 MG PO Q12H PRN for PAIN Oxycodone HCl/Acetaminophen (Oxycodone-Acetaminophen 5-325) 1 Each Tablet, 1-2 TAB PO Q4H PRN for PAIN Allergies Coded Allergies: meloxicam (Verified Allergy, Unknown, rash, 02/01/20) A-FIB/CHADSVASC A-FIB History Current/History of A-Fib/PAF?: No Current PO Anticoag Therapy: No FELIPE LIMA MD Feb 03, 2020 08:01
[2020-02-03] MEDS ORDERED: FLUBLOK(EGG FREE)(QUAD)INFLUENZA VACC 0.5ML SYRINGE 18YRS & OLDER IM ONE (09:00)
[2020-02-03] MEDS ORDERED: PREVNAR 13 VACCINE SYRINGE IM ONE (09:00)
[2020-02-03 14:00] VITALS: BP 140/63
[2020-02-03] MEDS ORDERED: PILL CUTTER 1 EACH XX PRN (16:00)
[2020-02-03 20:00] VITALS: BP 134/63
[2020-02-03] MEDS: SENNA 8.6 MG TAB (SENOKOT) PO SCH (21:00)
[2020-02-03] MEDS: ASPIRIN 81 MG ENTERIC TAB PO SCH (21:51)
[2020-02-04 06:30] VITALS: BP 110/58
[2020-02-04] MEDS: TELMISARTAN 20 MG TAB PO SCH (07:42)
[2020-02-04] MEDS: PREGABALIN 75 MG CAP(LYRICA) PO SCH ×2 (07:43→21:17)
[2020-02-04] MEDS: bisoproloL fumarate 5 MG TAB PO SCH (07:43)
[2020-02-04] MEDS: MYCOPHENOLATE MOFETIL 250 MG CAP (J7517) PO SCH ×2 (07:43→21:17)
[2020-02-04] MEDS: OMEPRAZOLE 20 MG CAP PO SCH (07:44)
[2020-02-04] MEDS: DULoxetine 30 MG CAP (CYMBALTA) PO SCH ×2 (07:44→21:16)
[2020-02-04] MEDS: FERROUS SULFATE 325MG TAB PO SCH (07:44)
[2020-02-04] MEDS: CLOPIDOGREL 75 MG TAB PO SCH (07:44)
[2020-02-04] MEDS: ACETAMINOPHEN 500 MG TAB PO SCH ×3 (07:44→21:16)
[2020-02-04] MEDS: DOCUSATE SODIUM 100 MG CAP PO SCH ×2 (07:44→21:00)
[2020-02-04] MEDS: ENOXAPARIN 40MG/0.4ML SYRINGE (J1650 PER 10MG) SC SCH (07:45)
[2020-02-04 08:03] LABS: BASO % 0.4 % (0.0-1.0); EOS # 0.1 10^3/uL (0.0-0.5); EOS % 2.2 % (0.0-3.0); HEMATOCRIT 32.4 % (36.0-47.0); HEMOGLOBIN 9.8 g/dl (12.0-15.5); LYMPH # 1.2 10^3/uL (1.5-5.0); LYMPH % 26.7 % (24.0-44.0); MEAN CORPUSCULAR HEMOGLOBIN 27.8 pg (27.0-33.0); MEAN CORPUSCULAR HGB CONC 30.2 g/dl (32.0-36.5); MONO # 0.4 10^3/uL (0.0-0.8); MONO % 9.9 % (0.0-5.0); NEUTROPHILS # 2.7 10^3/uL (1.5-8.5); NEUTROPHILS % 60.6 % (36.0-66.0); PLATELET COUNT, AUTOMATED 153 10^3/uL (150-450); RED BLOOD COUNT 3.52 10^6/uL (4.00-5.40); WHITE BLOOD COUNT 4.5 10^3/uL (4.0-10.0)
[2020-02-04 08:22] LABS: BLOOD UREA NITROGEN 11 MG/DL (7-18); CALCIUM LEVEL 9.2 MG/DL (8.8-10.2); CARBON DIOXIDE LEVEL 28 MEQ/L (21-32); CHLORIDE LEVEL 108 MEQ/L (98-107); GLOMERULAR FILTRATION RATE > 60.0 (>45); GLUCOSE, FASTING 99 MG/DL (70-100); POTASSIUM SERUM 4.1 MEQ/L (3.5-5.1); SODIUM LEVEL 142 MEQ/L (136-145)
[2020-02-04] MEDS: oxyBUTYnin 5 MG TAB PO SCH ×3 (09:00→21:17)
--- NOTE | 2020-02-04 12:43 | IPNPDOC ---
PM&R Progress Note DATE OF SERVICE: Feb 03, 2020 Structural Drafter Progress Note Subjective: PAtient reporting her ankle is more sore today and that the oxycodone seems to help, but that she only gets relief for a couple of hours. REVIEW OF SYSTEMS: The following is a completed review of systems and has been reviewed. Review of systems otherwise unremarkable. PAIN: Patient self reports left ankle pain EYES: No recent vision changes EARS, NOSE, & THROAT: No throat pain, or dysphagia, or rhinorrhea CARDIOVASCULAR: Denies chest pain or palpitations PULMONARY: Denies shortness of breath GASTROINTESTINAL: Denies constipation/diarrhea GENITOURINARY: denies dysuria MUSCULOSKELETAL:left ankle fracture NEUROLOGICAL:+peripheral polyneuropathy HEMATOLOGICAL: denies easy bruising SKIN: no rash PSYCHIATRIC: Unremarkable All other review of systems found to be negative. PHYSICAL EXAMINATION: VITAL SIGNS: Please see below. GENERAL: Pleasant and cooperative. No acute distress. obese HEENT: PERRL. Extraocular movements intact. Clear conjunctiva CARDIOVASCULAR: Regular rate and rhythm. No murmurs, rubs, or gallops LUNGS: Clear to auscultation bilaterally. No wheezes. No rhonchi ABDOMEN: Soft, nontender, nondistended. Positive bowel sounds. Normal active bowel sounds NEUROLOGICAL: Alert and oriented times three. Cranial nerves II through XII grossly intact. Sensation decreased to light touch bilat LE EXTREMITIES: 5\5 strength bilateral upper extremities. 5\5 strength right lower extremity. >3/5 left hip flexor, able to wiggle toes (limited due to casting) 5 SKIN: intact bilat LE warm and well perfused ASSESSMENT:69-year-old F with past medical history of HTN and colon cancer who presents status post fall with left fibula fracture PLAN: 1. Rehab- PT/OT advance mobility and ADLs, strengthen/stretch/maintain ROM all 4 limbs, NWB LLE 2. 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 CArdiac- hx of HTN with elevated BPs on inpatient unit, will c/u to monitor address pain,a nd adjust meds prn- medicine consulted to asssit in overall management -c/u ASA and plavix, hx of PVD or CAD unknown 4. Resp- monitor for infection, encourage incentive spirometry 5. - overactive bladder c/u Ditropan, monitor for infection 6. Ortho- NWB to LLE for ankle fracture, ortho consulted 7. GI ppx- Prilosec 8. DVT ppx- Lovenox 9. Pain- c/u Lyrica, tylenol, oxycodone prn (will increase dose to 7.5mg q4h) 10. Psych- cu Cymbalta for depression 11. Dispo- TBD Allergies Coded Allergies: meloxicam (Verified Allergy, Unknown, rash, 02/01/20) Vital Signs Vital Signs Date Time Temp Pulse Resp B/P (MAP) Pulse Ox O2 Delivery O2 Flow Rate FiO2 02/04/20 07:43 75 110/58 02/04/20 06:30 97.9 18 95 Room Air Laboratory Data CBC/BMP Laboratory Tests 02/04/20 07:14 Labs 24H Laboratory Tests 2 02/04/20 07:14: Immature Granulocyte % (Auto) 0.2, Neutrophils (%) (Auto) 60.6, Lymphocytes (%) (Auto) 26.7, Monocytes (%) (Auto) 9.9H, Eosinophils (%) (Auto) 2.2, Basophils (%) (Auto) 0.4, Neutrophils # (Auto) 2.7, Lymphocytes # (Auto) 1.2L, Monocytes # (Auto) 0.4, Eosinophils # (Auto) 0.1, Basophils # (Auto) 0.0, Nucleated Red Blood Cells % (auto) 0.0, Anion Gap 6L, Glomerular Filtration Rate > 60.0, Calcium Level 9.2 Current Medications Current Medications Current Medications Medications (Trade) Dose Ordered Sig/Naeem Route PRN Reason Start Time Stop Time Status Last Admin Dose Admin Acetaminophen (Tylenol Tab) 1,000 mg TID PO 02/02/20 21:00 02/04/20 07:44 Aspirin (Ecotrin) 81 mg QHS PO 02/02/20 21:00 02/03/20 21:51 Bisacodyl (Dulcolax Suppository) 10 mg DAILYPRN PRN [place] CONSTIPATION 02/02/20 15:30 Bisoprolol Fumarate (Zebeta) 7.5 mg DAILY PO 02/03/20 09:00 02/04/20 07:43 Clopidogrel Bisulfate (PLAVix) 75 mg DAILY PO 02/03/20 09:00 02/04/20 07:44 Docusate Sodium (Colace) 100 mg BID PO 02/02/20 21:00 Duloxetine HCl (Cymbalta) 30 mg QHS PO 02/02/20 21:00 02/03/20 21:51 Duloxetine HCl (Cymbalta) 60 mg DAILY PO 02/03/20 09:00 02/04/20 07:44 Enoxaparin Sodium (Lovenox) 40 mg DAILY SC 02/03/20 09:00 02/04/20 07:45 Ferrous Sulfate (Ferrous Sulfate) 325 mg DAILY PO 02/03/20 09:00 02/04/20 07:44 Magnesium Hydroxide (Milk Of Magnesia) 30 ml DAILYPRN PRN PO CONSTIPATION 02/02/20 15:30 Mycophenolate Mofetil (Cellcept) 1,000 mg QHS PO 02/02/20 21:00 02/03/20 21:55 Mycophenolate Mofetil (Cellcept) 1,500 mg DAILY PO 02/03/20 09:00 02/04/20 07:43 Omeprazole (PriLOSEC) 20 mg DAILY PO 02/03/20 09:00 02/04/20 07:44 Oxybutynin Chloride (Ditropan) 5 mg TID PO 02/02/20 16:00 02/03/20 21:54 Oxycodone HCl (Roxicodone, Oxyir) 5 mg Q4HP PRN PO PAIN 02/02/20 15:30 02/03/20 15:51 DC 02/03/20 13:40 Oxycodone HCl (Roxicodone, Oxyir) 7.5 mg Q4HP PRN PO PAIN 02/03/20 16:00 02/03/20 21:50 Pregabalin (Lyrica) 150 mg BID PO 02/02/20 21:00 02/04/20 07:43 Senna (Senokot) 1 tab QHS PO 02/02/20 21:00 Telmisartan (Micardis) 40 mg DAILY PO 02/03/20 09:00 02/04/20 07:42 HELEN CHACKO MD Feb 04, 2020 12:43
--- NOTE | 2020-02-04 12:45 | IPNPDOC ---
PM&R Progress Note DATE OF SERVICE: Feb 04, 2020 Body Presser Progress Note Subjective: PAtient reporting her ankle pain is better today with the increased dose of oxycodone, she denies having pain in her toes and thinks therapy is going well. REVIEW OF SYSTEMS: The following is a completed review of systems and has been reviewed. Review of systems otherwise unremarkable. PAIN: Patient self reports left ankle pain EYES: No recent vision changes EARS, NOSE, & THROAT: No throat pain, or dysphagia, or rhinorrhea CARDIOVASCULAR: Denies chest pain or palpitations PULMONARY: Denies shortness of breath GASTROINTESTINAL: Denies constipation/diarrhea GENITOURINARY: denies dysuria MUSCULOSKELETAL:left ankle fracture NEUROLOGICAL:+peripheral polyneuropathy HEMATOLOGICAL: denies easy bruising SKIN: no rash PSYCHIATRIC: Unremarkable All other review of systems found to be negative. PHYSICAL EXAMINATION: VITAL SIGNS: Please see below. GENERAL: Pleasant and cooperative. No acute distress. obese HEENT: PERRL. Extraocular movements intact. Clear conjunctiva CARDIOVASCULAR: Regular rate and rhythm. No murmurs, rubs, or gallops LUNGS: Clear to auscultation bilaterally. No wheezes. No rhonchi ABDOMEN: Soft, nontender, nondistended. Positive bowel sounds. Normal active bowel sounds NEUROLOGICAL: Alert and oriented times three. Cranial nerves II through XII grossly intact. Sensation decreased to light touch bilat LE EXTREMITIES: 5\5 strength bilateral upper extremities. 5\5 strength right lower extremity. >3/5 left hip flexor, able to wiggle toes (limited due to casting) 5 SKIN: intact bilat LE warm and well perfused ASSESSMENT:69-year-old F with past medical history of HTN and colon cancer who presents status post fall with left fibula fracture PLAN: 1. Rehab- PT/OT advance mobility and ADLs, strengthen/stretch/maintain ROM all 4 limbs, NWB LLE 2. 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 CArdiac- hx of HTN with elevated BPs on inpatient unit, will c/u to monitor address pain,a nd adjust meds prn- medicine consulted to asssit in overall management -c/u ASA and plavix, hx of PVD or CAD unknown 4. Resp- monitor for infection, encourage incentive spirometry 5. - overactive bladder c/u Ditropan, monitor for infection 6. Ortho- NWB to LLE for ankle fracture, ortho consulted 7. GI ppx- Prilosec 8. DVT ppx- Lovenox 9. Pain- c/u Lyrica, tylenol, c/u oxycodone 7.5 mg q4h prn-patient's pain overall improving 10. Psych- cu Cymbalta for depression 11. Dispo- 02-12-20 to home, progressing towards goals Allergies Coded Allergies: meloxicam (Verified Allergy, Unknown, rash, 02/01/20) Vital Signs Vital Signs Date Time Temp Pulse Resp B/P (MAP) Pulse Ox O2 Delivery O2 Flow Rate FiO2 02/04/20 07:43 75 110/58 02/04/20 06:30 97.9 18 95 Room Air Laboratory Data CBC/BMP Laboratory Tests 02/04/20 07:14 Labs 24H Laboratory Tests 2 02/04/20 07:14: Immature Granulocyte % (Auto) 0.2, Neutrophils (%) (Auto) 60.6, Lymphocytes (%) (Auto) 26.7, Monocytes (%) (Auto) 9.9H, Eosinophils (%) (Auto) 2.2, Basophils (%) (Auto) 0.4, Neutrophils # (Auto) 2.7, Lymphocytes # (Auto) 1.2L, Monocytes # (Auto) 0.4, Eosinophils # (Auto) 0.1, Basophils # (Auto) 0.0, Nucleated Red Blood Cells % (auto) 0.0, Anion Gap 6L, Glomerular Filtration Rate > 60.0, Calcium Level 9.2 Current Medications Current Medications Current Medications Medications (Trade) Dose Ordered Sig/Naeem Route PRN Reason Start Time Stop Time Status Last Admin Dose Admin Acetaminophen (Tylenol Tab) 1,000 mg TID PO 02/02/20 21:00 02/04/20 07:44 Aspirin (Ecotrin) 81 mg QHS PO 02/02/20 21:00 02/03/20 21:51 Bisacodyl (Dulcolax Suppository) 10 mg DAILYPRN PRN [place] CONSTIPATION 02/02/20 15:30 Bisoprolol Fumarate (Zebeta) 7.5 mg DAILY PO 02/03/20 09:00 02/04/20 07:43 Clopidogrel Bisulfate (PLAVix) 75 mg DAILY PO 02/03/20 09:00 02/04/20 07:44 Docusate Sodium (Colace) 100 mg BID PO 02/02/20 21:00 Duloxetine HCl (Cymbalta) 30 mg QHS PO 02/02/20 21:00 02/03/20 21:51 Duloxetine HCl (Cymbalta) 60 mg DAILY PO 02/03/20 09:00 02/04/20 07:44 Enoxaparin Sodium (Lovenox) 40 mg DAILY SC 02/03/20 09:00 02/04/20 07:45 Ferrous Sulfate (Ferrous Sulfate) 325 mg DAILY PO 02/03/20 09:00 02/04/20 07:44 Magnesium Hydroxide (Milk Of Magnesia) 30 ml DAILYPRN PRN PO CONSTIPATION 02/02/20 15:30 Mycophenolate Mofetil (Cellcept) 1,000 mg QHS PO 02/02/20 21:00 02/03/20 21:55 Mycophenolate Mofetil (Cellcept) 1,500 mg DAILY PO 02/03/20 09:00 02/04/20 07:43 Omeprazole (PriLOSEC) 20 mg DAILY PO 02/03/20 09:00 02/04/20 07:44 Oxybutynin Chloride (Ditropan) 5 mg TID PO 02/02/20 16:00 02/03/20 21:54 Oxycodone HCl (Roxicodone, Oxyir) 5 mg Q4HP PRN PO PAIN 02/02/20 15:30 02/03/20 15:51 DC 02/03/20 13:40 Oxycodone HCl (Roxicodone, Oxyir) 7.5 mg Q4HP PRN PO PAIN 02/03/20 16:00 02/03/20 21:50 Pregabalin (Lyrica) 150 mg BID PO 02/02/20 21:00 02/04/20 07:43 Senna (Senokot) 1 tab QHS PO 02/02/20 21:00 Telmisartan (Micardis) 40 mg DAILY PO 02/03/20 09:00 02/04/20 07:42 HELEN CHACKO MD Feb 04, 2020 12:45
[2020-02-04 14:00] VITALS: BP 134/60
[2020-02-04 20:00] VITALS: BP 133/63
[2020-02-04] MEDS: SENNA 8.6 MG TAB (SENOKOT) PO SCH (21:00)
[2020-02-04] MEDS: oxyCODONE 5MG TAB PO PRN (23:01)
[2020-02-05] MEDS: LR 1,000 ML IV SCH ×2 (00:05→07:46)
[2020-02-05] MEDS ORDERED: ceFAZolin SOD 2 GM in IV 1 EA IV ONE (06:00)
[2020-02-05 06:15] VITALS: BP 134/61
[2020-02-05] MEDS: DOCUSATE SODIUM 100 MG CAP PO SCH (09:00)
[2020-02-06] MEDS ORDERED: OXYC-517 PO (11:33)
[2020-02-06] MEDS ORDERED: BISO5TAB14 PO (11:33)
[2020-02-06] MEDS ORDERED: SENNA 8.6 MG TAB (SENOKOT) PO PRN (12:45)
[2020-02-06] MEDS ORDERED: MIRALAX *UNIT DOSE* 17GM PACKET PO PRN (12:45)
[2020-02-06] MEDS ORDERED: PILL CUTTER 1 EACH XX PRN (13:15)
[2020-02-06 14:00] VITALS: BP 152/66
[2020-02-06] MEDS: CLOPIDOGREL 75 MG TAB PO SCH (14:35)
[2020-02-06] MEDS ORDERED: oxyCODONE 5MG TAB PO ONE (15:00)
[2020-02-06] MEDS: DOCUSATE SODIUM 100 MG CAP PO SCH ×2 (16:00→20:42)
[2020-02-06] MEDS: REMEDY PHYTOPLEX Z-GUARD PASTE 113GM TUBE (FROM STOREROOM PRODUCT) TOP SCH ×2 (16:00→20:41)
[2020-02-06] MEDS: oxyBUTYnin 5 MG TAB PO SCH ×2 (17:21→20:40)
[2020-02-06] MEDS: ACETAMINOPHEN 500 MG TAB PO SCH ×2 (17:22→20:41)
[2020-02-06 20:00] VITALS: BP 123/57
[2020-02-06] MEDS: PREGABALIN 75 MG CAP(LYRICA) PO SCH (20:40)
[2020-02-06] MEDS: DULoxetine 30 MG CAP (CYMBALTA) PO SCH (20:40)
[2020-02-06] MEDS: ASPIRIN 81 MG ENTERIC TAB PO SCH (20:40)
[2020-02-06] MEDS: MYCOPHENOLATE MOFETIL 250 MG CAP (J7517) PO SCH (20:42)
[2020-02-07 05:28] VITALS: BP 138/65
[2020-02-07] MEDS: ENOXAPARIN 40MG/0.4ML SYRINGE (J1650 PER 10MG) SC SCH (08:17)
[2020-02-07] MEDS: MYCOPHENOLATE MOFETIL 250 MG CAP (J7517) PO SCH ×2 (08:17→20:36)
[2020-02-07] MEDS: FERROUS SULFATE 325MG TAB PO SCH (08:18)
[2020-02-07] MEDS: TELMISARTAN 20 MG TAB PO SCH (08:18)
[2020-02-07] MEDS: OMEPRAZOLE 20 MG CAP PO SCH (08:18)
[2020-02-07] MEDS: CLOPIDOGREL 75 MG TAB PO SCH (08:18)
[2020-02-07] MEDS: oxyBUTYnin 5 MG TAB PO SCH ×3 (08:18→20:35)
[2020-02-07] MEDS: PREGABALIN 75 MG CAP(LYRICA) PO SCH ×2 (08:19→20:35)
[2020-02-07] MEDS: DULoxetine 30 MG CAP (CYMBALTA) PO SCH ×2 (08:19→20:35)
[2020-02-07] MEDS: bisoproloL fumarate 5 MG TAB PO SCH (08:19)
[2020-02-07] MEDS: DOCUSATE SODIUM 100 MG CAP PO SCH ×3 (08:20→20:35)
[2020-02-07] MEDS: ACETAMINOPHEN 500 MG TAB PO SCH ×3 (08:22→20:34)
[2020-02-07] MEDS: oxyCODONE 5MG TAB PO PRN (08:22)
[2020-02-07] MEDS: REMEDY PHYTOPLEX Z-GUARD PASTE 113GM TUBE (FROM STOREROOM PRODUCT) TOP SCH ×3 (08:23→20:36)
[2020-02-07 14:00] VITALS: BP 108/53
[2020-02-07 20:15] VITALS: BP 152/62
[2020-02-07] MEDS: ASPIRIN 81 MG ENTERIC TAB PO SCH (20:35)
[2020-02-08 05:48] VITALS: BP 130/60
[2020-02-08] MEDS: MYCOPHENOLATE MOFETIL 250 MG CAP (J7517) PO SCH ×2 (08:30→20:04)
[2020-02-08] MEDS: DULoxetine 30 MG CAP (CYMBALTA) PO SCH ×2 (08:31→20:04)
[2020-02-08] MEDS: OMEPRAZOLE 20 MG CAP PO SCH (08:31)
[2020-02-08] MEDS: DOCUSATE SODIUM 100 MG CAP PO SCH ×3 (08:31→20:00)
[2020-02-08] MEDS: CLOPIDOGREL 75 MG TAB PO SCH (08:31)
[2020-02-08] MEDS: PREGABALIN 75 MG CAP(LYRICA) PO SCH ×2 (08:31→20:04)
[2020-02-08] MEDS: FERROUS SULFATE 325MG TAB PO SCH (08:31)
[2020-02-08] MEDS: TELMISARTAN 20 MG TAB PO SCH (08:31)
[2020-02-08] MEDS: oxyBUTYnin 5 MG TAB PO SCH ×3 (08:32→20:04)
[2020-02-08] MEDS: bisoproloL fumarate 5 MG TAB PO SCH (08:32)
[2020-02-08] MEDS: ACETAMINOPHEN 500 MG TAB PO SCH ×3 (08:32→20:05)
[2020-02-08] MEDS: REMEDY PHYTOPLEX Z-GUARD PASTE 113GM TUBE (FROM STOREROOM PRODUCT) TOP SCH ×3 (08:33→20:00)
[2020-02-08] MEDS: ENOXAPARIN 40MG/0.4ML SYRINGE (J1650 PER 10MG) SC SCH (08:33)
[2020-02-08 14:00] VITALS: BP 138/65
--- NOTE | 2020-02-08 15:44 | IPN ---
DATE: 02/04/2020 CHIEF COMPLAINT: Left ankle fracture follow-up. HISTORY OF PRESENT ILLNESS: This is a 69-year-old female who sustained an unstable ankle fracture. She had post reduction and splinting in preparation for surgery. She is doing reasonably well, a little bit of pain in the ankle. PHYSICAL EXAMINATION: This is a well-appearing 69-year-old female. She has normal sensation, she can wiggle her toes. Capillary refill under three seconds. Radiographs were obtained this morning, AP, lateral and oblique, this shows increase in lateral talar shift compared to reduction radiographs. ASSESSMENT AND PLAN: This is a 69-year-old female with a highly unstable ankle fracture. This has been unstable in a cast now twice. I think it is reasonable to go ahead and with surgery. I discussed the pros and cons, risks and benefits of open reduction internal fixation. I secured time in the Operating Room tomorrow in the afternoon. We will keep her NPO at midnight and I have written orders to hold her anticoagulation and I have also asked our nurses on the floor to prepare her for surgery. I have asked the patient to refrain from anymore anticoagulants. The discussed the pros, cons, risks and benefits of open reduction internal fixation with lateral plating and syndesmosis screw fixation. Her was there and I met him as well. Surgical risks include but not limited to infection, pain, bleeding, damage to adjacent structures, neurovascular injury, nonhealing, nonunion and malunion and anesthetic complications, as well as other risk, hardware rotation, need for further surgery. She signed the consent form for surgery. She will be made NPO at midnight. She has no further questions. YUNIOR
--- NOTE | 2020-02-08 15:46 | REP ---
LEFT ANKLE: 2-VIEWS IN PLASTER HISTORY: Check position. COMPARISON RADIOGRAPHS: 02/01/2020. FINDINGS: Significant widening of the medial aspect of the ankle mortise persists. There is lateral displacement of the distal fragment of the distal fibular fracture. This lateral displacement appears increased from the earlier study. No tibial fracture is appreciated. Plantar and Achilles calcaneal spurring and midfoot spurring are again noted unchanged. MTDD
[2020-02-08 19:57] VITALS: BP 128/60
[2020-02-08] MEDS: ASPIRIN 81 MG ENTERIC TAB PO SCH (20:04)
[2020-02-09 05:47] VITALS: BP 151/67
[2020-02-09] MEDS: DOCUSATE SODIUM 100 MG CAP PO SCH ×3 (07:06→20:28)
[2020-02-09] MEDS: REMEDY PHYTOPLEX Z-GUARD PASTE 113GM TUBE (FROM STOREROOM PRODUCT) TOP SCH ×3 (07:07→20:27)
[2020-02-09] MEDS: MYCOPHENOLATE MOFETIL 250 MG CAP (J7517) PO SCH ×2 (07:20→20:26)
[2020-02-09] MEDS: CLOPIDOGREL 75 MG TAB PO SCH (07:21)
[2020-02-09] MEDS: TELMISARTAN 20 MG TAB PO SCH (07:21)
[2020-02-09] MEDS: oxyBUTYnin 5 MG TAB PO SCH ×3 (07:21→20:28)
[2020-02-09] MEDS: PREGABALIN 75 MG CAP(LYRICA) PO SCH ×2 (07:21→20:26)
[2020-02-09] MEDS: OMEPRAZOLE 20 MG CAP PO SCH (07:22)
[2020-02-09] MEDS: bisoproloL fumarate 5 MG TAB PO SCH (07:22)
[2020-02-09] MEDS: DULoxetine 30 MG CAP (CYMBALTA) PO SCH ×2 (07:22→20:28)
[2020-02-09] MEDS: ACETAMINOPHEN 500 MG TAB PO SCH ×3 (07:22→20:27)
[2020-02-09] MEDS: ENOXAPARIN 40MG/0.4ML SYRINGE (J1650 PER 10MG) SC SCH (07:23)
[2020-02-09] MEDS: FERROUS SULFATE 325MG TAB PO SCH (07:23)
--- NOTE | 2020-02-09 11:41 | IPNPDOC ---
PM&R Progress Note DATE OF SERVICE: Feb 06, 2020 Market President Progress Note Subjective: PAtient reporting her ankle pain is no worse after the surgery, but she has not had pain medication in several hours and has a headache. REVIEW OF SYSTEMS: The following is a completed review of systems and has been reviewed. Review of systems otherwise unremarkable. PAIN: Patient self reports left ankle pain EYES: No recent vision changes EARS, NOSE, & THROAT: No throat pain, or dysphagia, or rhinorrhea CARDIOVASCULAR: Denies chest pain or palpitations PULMONARY: Denies shortness of breath GASTROINTESTINAL: Denies constipation/diarrhea GENITOURINARY: denies dysuria MUSCULOSKELETAL:left ankle fracture NEUROLOGICAL:+peripheral polyneuropathy HEMATOLOGICAL: denies easy bruising SKIN: no rash PSYCHIATRIC: Unremarkable All other review of systems found to be negative. PHYSICAL EXAMINATION: VITAL SIGNS: Please see below. GENERAL: Pleasant and cooperative. No acute distress. obese HEENT: PERRL. Extraocular movements intact. Clear conjunctiva CARDIOVASCULAR: Regular rate and rhythm. No murmurs, rubs, or gallops LUNGS: Clear to auscultation bilaterally. No wheezes. No rhonchi ABDOMEN: Soft, nontender, nondistended. Positive bowel sounds. Normal active bowel sounds NEUROLOGICAL: Alert and oriented times three. Cranial nerves II through XII grossly intact. Sensation decreased to light touch bilat LE EXTREMITIES: 5\5 strength bilateral upper extremities. 5\5 strength right lower extremity. >3/5 left hip flexor, able to wiggle toes (limited due to casting) 5 SKIN: intact bilat LE warm and well perfused ASSESSMENT:69-year-old F with past medical history of HTN and colon cancer who presents status post fall with left fibula fracture PLAN: 1. Rehab- PT/OT advance mobility and ADLs, strengthen/stretch/maintain ROM all 4 limbs, NWB LLE 2. 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 CArdiac- hx of HTN with elevated BPs on inpatient unit, will c/u to monitor address pain, and adjust meds prn- medicine consulted to assist in overall management -c/u ASA and plavix, hx of PVD or CAD unknown 4. Resp- monitor for infection, encourage incentive spirometry 5. - overactive bladder c/u Ditropan, monitor for infection 6. Ortho- NWB to LLE for ankle fracture, ortho consulted, s/p ORIF 02-05-20 without complication, c/u NWB 7. GI ppx- Prilosec 8. DVT ppx- Lovenox 9. Pain- c/u Lyrica, tylenol, c/u oxycodone 7.5 mg q4h prn-patient's pain overall improving 10. Psych- cu Cymbalta for depression 11. Dispo- 02-12-20 to home, progressing towards goals, patient with interrupted stay due to left ankle ORIF 02-05-20 Allergies Coded Allergies: meloxicam (Verified Allergy, Unknown, rash, 02/01/20) Vital Signs Vital Signs Date Time Temp Pulse Resp B/P (MAP) Pulse Ox O2 Delivery O2 Flow Rate FiO2 02/09/20 07:22 67 151/67 02/09/20 05:47 97.4 17 96 Room Air Microbiology Microbiology 02/05/20 Respiratory Virus Panel (PCR) (RACHELE) - Final, Complete Current Medications Current Medications Current Medications Medications (Trade) Dose Ordered Sig/Naeem Route PRN Reason Start Time Stop Time Status Last Admin Dose Admin Acetaminophen (Tylenol Tab) 1,000 mg TID PO 02/02/20 21:00 02/05/20 12:29 DC 02/04/20 21:16 Acetaminophen (Tylenol Tab) 1,000 mg TID PO 02/06/20 16:00 02/09/20 07:22 Aspirin (Ecotrin) 81 mg QHS PO 02/02/20 21:00 02/05/20 12:29 DC 02/03/20 21:51 Aspirin (Ecotrin) 81 mg QHS PO 02/06/20 21:00 02/08/20 20:04 Bisacodyl (Dulcolax Suppository) 10 mg DAILYPRN PRN [place] CONSTIPATION 02/02/20 15:30 02/05/20 12:29 DC Bisoprolol Fumarate (Zebeta) 7.5 mg DAILY PO 02/03/20 09:00 02/05/20 12:29 DC 02/04/20 07:43 Bisoprolol Fumarate (Zebeta) 7.5 mg DAILY PO 02/07/20 09:00 02/09/20 07:22 Clopidogrel Bisulfate (PLAVix) 75 mg DAILY PO 02/03/20 09:00 02/05/20 12:29 DC 02/04/20 07:44 Clopidogrel Bisulfate (PLAVix) 75 mg DAILY PO 02/06/20 09:00 02/09/20 07:21 Docusate Sodium (Colace) 100 mg BID PO 02/02/20 21:00 02/05/20 12:29 DC Docusate Sodium (Colace) 100 mg TID PO 02/06/20 16:00 Duloxetine HCl (Cymbalta) 30 mg QHS PO 02/02/20 21:00 02/05/20 12:29 DC 02/04/20 21:16 Duloxetine HCl (Cymbalta) 30 mg QHS PO 02/06/20 21:00 02/08/20 20:04 Duloxetine HCl (Cymbalta) 60 mg DAILY PO 02/03/20 09:00 02/05/20 12:29 DC 02/04/20 07:44 Duloxetine HCl (Cymbalta) 60 mg DAILY PO 02/07/20 09:00 02/09/20 07:22 Enoxaparin Sodium (Lovenox) 40 mg DAILY SC 02/03/20 09:00 02/05/20 12:29 DC 02/04/20 07:45 Enoxaparin Sodium (Lovenox) 40 mg DAILY SC 02/07/20 09:00 02/09/20 07:23 Ferrous Sulfate (Ferrous Sulfate) 325 mg DAILY PO 02/03/20 09:00 02/05/20 12:29 DC 02/04/20 07:44 Ferrous Sulfate (Ferrous Sulfate) 325 mg DAILY PO 02/07/20 09:00 02/09/20 07:23 Lactated Ringer's 1,000 ml @ 125 mls/hr Q8H IV 02/04/20 00:00 02/05/20 12:29 DC 02/05/20 07:46 Magnesium Hydroxide (Milk Of Magnesia) 30 ml DAILYPRN PRN PO CONSTIPATION 02/02/20 15:30 02/05/20 12:29 DC Mycophenolate Mofetil (Cellcept) 1,000 mg QHS PO 02/02/20 21:00 02/05/20 12:29 DC 02/04/20 21:17 Mycophenolate Mofetil (Cellcept) 1,000 mg QHS PO 02/06/20 21:00 02/08/20 20:04 Mycophenolate Mofetil (Cellcept) 1,500 mg DAILY PO 02/03/20 09:00 02/05/20 12:29 DC 02/04/20 07:43 Mycophenolate Mofetil (Cellcept) 1,500 mg DAILY PO 02/07/20 09:00 02/09/20 07:20 Omeprazole (PriLOSEC) 20 mg DAILY PO 02/03/20 09:00 02/05/20 12:29 DC 02/04/20 07:44 Omeprazole (PriLOSEC) 20 mg DAILY PO 02/07/20 09:00 02/09/20 07:22 Oxybutynin Chloride (Ditropan) 5 mg TID PO 02/02/20 16:00 02/05/20 12:29 DC 02/04/20 21:17 Oxybutynin Chloride (Ditropan) 5 mg TID PO 02/06/20 16:00 02/09/20 07:21 Oxycodone HCl (Roxicodone, Oxyir) 5 mg Q4HP PRN PO PAIN 02/02/20 15:30 02/03/20 15:51 DC 02/03/20 13:40 Oxycodone HCl (Roxicodone, Oxyir) 7.5 mg Q4HP PRN PO PAIN 02/03/20 16:00 02/05/20 12:29 DC 02/04/20 23:01 Oxycodone HCl (Roxicodone, Oxyir) 7.5 mg Q4HP PRN PO PAIN 02/06/20 12:45 02/07/20 08:22 Polyethylene Glycol (Miralax) 1 pkt DAILYPRN PRN PO CONSTIPATION 02/06/20 12:45 Pregabalin (Lyrica) 150 mg BID PO 02/02/20 21:00 02/05/20 12:29 DC 02/04/20 21:17 Pregabalin (Lyrica) 150 mg BID PO 02/06/20 21:00 02/09/20 07:21 Senna (Senokot) 1 tab QHS PO 02/02/20 21:00 02/05/20 12:29 DC Senna (Senokot) 1 tab QHSP PRN PO CONSTIPATION 02/06/20 12:45 Telmisartan (Micardis) 40 mg DAILY PO 02/03/20 09:00 02/05/20 12:29 DC 02/04/20 07:42 Telmisartan (Micardis) 40 mg DAILY PO 02/07/20 09:00 02/09/20 07:21 HELEN CHACKO MD Feb 09, 2020 11:41
--- NOTE | 2020-02-09 11:42 | IPNPDOC ---
PM&R Progress Note DATE OF SERVICE: Feb 09, 2020 Moderate Needs Teacher Progress Note Subjective: Patient reporting her ankle pain is minimal and says she is working on hopping up stairs. REVIEW OF SYSTEMS: The following is a completed review of systems and has been reviewed. Review of systems otherwise unremarkable. PAIN: Patient self reports left ankle pain EYES: No recent vision changes EARS, NOSE, & THROAT: No throat pain, or dysphagia, or rhinorrhea CARDIOVASCULAR: Denies chest pain or palpitations PULMONARY: Denies shortness of breath GASTROINTESTINAL: Denies constipation/diarrhea GENITOURINARY: denies dysuria MUSCULOSKELETAL:left ankle fracture NEUROLOGICAL:+peripheral polyneuropathy HEMATOLOGICAL: denies easy bruising SKIN: no rash PSYCHIATRIC: Unremarkable All other review of systems found to be negative. PHYSICAL EXAMINATION: VITAL SIGNS: Please see below. GENERAL: Pleasant and cooperative. No acute distress. obese HEENT: PERRL. Extraocular movements intact. Clear conjunctiva CARDIOVASCULAR: Regular rate and rhythm. No murmurs, rubs, or gallops LUNGS: Clear to auscultation bilaterally. No wheezes. No rhonchi ABDOMEN: Soft, nontender, nondistended. Positive bowel sounds. Normal active bowel sounds NEUROLOGICAL: Alert and oriented times three. Cranial nerves II through XII grossly intact. Sensation decreased to light touch bilat LE EXTREMITIES: 5\5 strength bilateral upper extremities. 5\5 strength right lower extremity. >3/5 left hip flexor, able to wiggle toes (limited due to casting) 5 SKIN: intact bilat LE warm and well perfused ASSESSMENT:69-year-old F with past medical history of HTN and colon cancer who presents status post fall with left fibula fracture PLAN: 1. Rehab- PT/OT advance mobility and ADLs, strengthen/stretch/maintain ROM all 4 limbs, NWB LLE, approaching Mod-I from wheelchair lelve 2. 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 CArdiac- hx of HTN with elevated BPs on inpatient unit, will c/u to monitor address pain, and adjust meds prn- medicine consulted to assist in overall management -c/u ASA and plavix, hx of PVD or CAD unknown 4. Resp- monitor for infection, encourage incentive spirometry 5. - overactive bladder c/u Ditropan, monitor for infection 6. Ortho- NWB to LLE for ankle fracture, ortho consulted, s/p ORIF 02-05-20 without complication, c/u NWB 7. GI ppx- Prilosec 8. DVT ppx- Lovenox 9. Pain- c/u Lyrica, tylenol, c/u oxycodone 7.5 mg q4h prn-patient's pain overall improving 10. Psych- cu Cymbalta for depression 11. Dispo- had been scheduled for 02-12-20 to home, progressing towards goals, patient with interrupted stay due to left ankle ORIF 02-05-20, will discuss new d/c date at teams Allergies Coded Allergies: meloxicam (Verified Allergy, Unknown, rash, 02/01/20) Vital Signs Vital Signs Date Time Temp Pulse Resp B/P (MAP) Pulse Ox O2 Delivery O2 Flow Rate FiO2 02/09/20 07:22 67 151/67 02/09/20 05:47 97.4 17 96 Room Air Microbiology Microbiology 02/05/20 Respiratory Virus Panel (PCR) (RACHELE) - Final, Complete Current Medications Current Medications Current Medications Medications (Trade) Dose Ordered Sig/Naeem Route PRN Reason Start Time Stop Time Status Last Admin Dose Admin Acetaminophen (Tylenol Tab) 1,000 mg TID PO 02/02/20 21:00 02/05/20 12:29 DC 02/04/20 21:16 Acetaminophen (Tylenol Tab) 1,000 mg TID PO 02/06/20 16:00 02/09/20 07:22 Aspirin (Ecotrin) 81 mg QHS PO 02/02/20 21:00 02/05/20 12:29 DC 02/03/20 21:51 Aspirin (Ecotrin) 81 mg QHS PO 02/06/20 21:00 02/08/20 20:04 Bisacodyl (Dulcolax Suppository) 10 mg DAILYPRN PRN [place] CONSTIPATION 02/02/20 15:30 02/05/20 12:29 DC Bisoprolol Fumarate (Zebeta) 7.5 mg DAILY PO 02/03/20 09:00 02/05/20 12:29 DC 02/04/20 07:43 Bisoprolol Fumarate (Zebeta) 7.5 mg DAILY PO 02/07/20 09:00 02/09/20 07:22 Clopidogrel Bisulfate (PLAVix) 75 mg DAILY PO 02/03/20 09:00 02/05/20 12:29 DC 02/04/20 07:44 Clopidogrel Bisulfate (PLAVix) 75 mg DAILY PO 02/06/20 09:00 02/09/20 07:21 Docusate Sodium (Colace) 100 mg BID PO 02/02/20 21:00 02/05/20 12:29 DC Docusate Sodium (Colace) 100 mg TID PO 02/06/20 16:00 Duloxetine HCl (Cymbalta) 30 mg QHS PO 02/02/20 21:00 02/05/20 12:29 DC 02/04/20 21:16 Duloxetine HCl (Cymbalta) 30 mg QHS PO 02/06/20 21:00 02/08/20 20:04 Duloxetine HCl (Cymbalta) 60 mg DAILY PO 02/03/20 09:00 02/05/20 12:29 DC 02/04/20 07:44 Duloxetine HCl (Cymbalta) 60 mg DAILY PO 02/07/20 09:00 02/09/20 07:22 Enoxaparin Sodium (Lovenox) 40 mg DAILY SC 02/03/20 09:00 02/05/20 12:29 DC 02/04/20 07:45 Enoxaparin Sodium (Lovenox) 40 mg DAILY SC 02/07/20 09:00 02/09/20 07:23 Ferrous Sulfate (Ferrous Sulfate) 325 mg DAILY PO 02/03/20 09:00 02/05/20 12:29 DC 02/04/20 07:44 Ferrous Sulfate (Ferrous Sulfate) 325 mg DAILY PO 02/07/20 09:00 02/09/20 07:23 Lactated Ringer's 1,000 ml @ 125 mls/hr Q8H IV 02/04/20 00:00 02/05/20 12:29 DC 02/05/20 07:46 Magnesium Hydroxide (Milk Of Magnesia) 30 ml DAILYPRN PRN PO CONSTIPATION 02/02/20 15:30 02/05/20 12:29 DC Mycophenolate Mofetil (Cellcept) 1,000 mg QHS PO 02/02/20 21:00 02/05/20 12:29 DC 02/04/20 21:17 Mycophenolate Mofetil (Cellcept) 1,000 mg QHS PO 02/06/20 21:00 02/08/20 20:04 Mycophenolate Mofetil (Cellcept) 1,500 mg DAILY PO 02/03/20 09:00 02/05/20 12:29 DC 02/04/20 07:43 Mycophenolate Mofetil (Cellcept) 1,500 mg DAILY PO 02/07/20 09:00 02/09/20 07:20 Omeprazole (PriLOSEC) 20 mg DAILY PO 02/03/20 09:00 02/05/20 12:29 DC 02/04/20 07:44 Omeprazole (PriLOSEC) 20 mg DAILY PO 02/07/20 09:00 02/09/20 07:22 Oxybutynin Chloride (Ditropan) 5 mg TID PO 02/02/20 16:00 02/05/20 12:29 DC 02/04/20 21:17 Oxybutynin Chloride (Ditropan) 5 mg TID PO 02/06/20 16:00 02/09/20 07:21 Oxycodone HCl (Roxicodone, Oxyir) 5 mg Q4HP PRN PO PAIN 02/02/20 15:30 02/03/20 15:51 DC 02/03/20 13:40 Oxycodone HCl (Roxicodone, Oxyir) 7.5 mg Q4HP PRN PO PAIN 02/03/20 16:00 02/05/20 12:29 DC 02/04/20 23:01 Oxycodone HCl (Roxicodone, Oxyir) 7.5 mg Q4HP PRN PO PAIN 02/06/20 12:45 02/07/20 08:22 Polyethylene Glycol (Miralax) 1 pkt DAILYPRN PRN PO CONSTIPATION 02/06/20 12:45 Pregabalin (Lyrica) 150 mg BID PO 02/02/20 21:00 02/05/20 12:29 DC 02/04/20 21:17 Pregabalin (Lyrica) 150 mg BID PO 02/06/20 21:00 02/09/20 07:21 Senna (Senokot) 1 tab QHS PO 02/02/20 21:00 02/05/20 12:29 DC Senna (Senokot) 1 tab QHSP PRN PO CONSTIPATION 02/06/20 12:45 Telmisartan (Micardis) 40 mg DAILY PO 02/03/20 09:00 02/05/20 12:29 DC 02/04/20 07:42 Telmisartan (Micardis) 40 mg DAILY PO 02/07/20 09:00 02/09/20 07:21 HELEN CHACKO MD Feb 09, 2020 11:42
[2020-02-09 12:34] LABS: BASO % 0.2 % (0.0-1.0); EOS # 0.1 10^3/uL (0.0-0.5); EOS % 1.8 % (0.0-3.0); HEMATOCRIT 30.8 % (36.0-47.0); HEMOGLOBIN 9.6 g/dl (12.0-15.5); LYMPH # 1.1 10^3/uL (1.5-5.0); LYMPH % 24.7 % (24.0-44.0); MEAN CORPUSCULAR HEMOGLOBIN 28.3 pg (27.0-33.0); MEAN CORPUSCULAR HGB CONC 31.2 g/dl (32.0-36.5); MEAN CORPUSCULAR VOLUME 90.9 fl (80.0-96.0); MONO # 0.4 10^3/uL (0.0-0.8); MONO % 9.6 % (0.0-5.0); NEUTROPHILS # 2.9 10^3/uL (1.5-8.5); NEUTROPHILS % 63.5 % (36.0-66.0); PLATELET COUNT, AUTOMATED 187 10^3/uL (150-450); RED BLOOD COUNT 3.39 10^6/uL (4.00-5.40); WHITE BLOOD COUNT 4.5 10^3/uL (4.0-10.0)
[2020-02-09 12:54] LABS: BLOOD UREA NITROGEN 12 MG/DL (7-18); CALCIUM LEVEL 8.9 MG/DL (8.8-10.2); CARBON DIOXIDE LEVEL 28 MEQ/L (21-32); CHLORIDE LEVEL 109 MEQ/L (98-107); CREATININE FOR GFR 0.66 MG/DL (0.55-1.30); GLOMERULAR FILTRATION RATE > 60.0 (>45); GLUCOSE, FASTING 80 MG/DL (70-100); POTASSIUM SERUM 4.3 MEQ/L (3.5-5.1); SODIUM LEVEL 141 MEQ/L (136-145)
[2020-02-09 14:00] VITALS: BP 149/62
[2020-02-09 20:00] VITALS: BP 119/58
[2020-02-09] MEDS: ASPIRIN 81 MG ENTERIC TAB PO SCH (20:26)
[2020-02-09] MEDS: oxyCODONE 5MG TAB PO PRN (20:29)
[2020-02-10 06:01] VITALS: BP 146/69
[2020-02-10] MEDS: MYCOPHENOLATE MOFETIL 250 MG CAP (J7517) PO SCH ×2 (08:28→20:12)
[2020-02-10] MEDS: TELMISARTAN 20 MG TAB PO SCH (08:29)
[2020-02-10] MEDS: bisoproloL fumarate 5 MG TAB PO SCH (08:29)
[2020-02-10] MEDS: oxyBUTYnin 5 MG TAB PO SCH ×3 (08:29→20:12)
[2020-02-10] MEDS: CLOPIDOGREL 75 MG TAB PO SCH (08:30)
[2020-02-10] MEDS: PREGABALIN 75 MG CAP(LYRICA) PO SCH ×2 (08:30→20:12)
[2020-02-10] MEDS: DULoxetine 30 MG CAP (CYMBALTA) PO SCH ×2 (08:30→20:12)
[2020-02-10] MEDS: FERROUS SULFATE 325MG TAB PO SCH (08:30)
[2020-02-10] MEDS: OMEPRAZOLE 20 MG CAP PO SCH (08:30)
[2020-02-10] MEDS: ACETAMINOPHEN 500 MG TAB PO SCH ×3 (08:31→20:13)
[2020-02-10] MEDS: ENOXAPARIN 40MG/0.4ML SYRINGE (J1650 PER 10MG) SC SCH (08:31)
[2020-02-10] MEDS: DOCUSATE SODIUM 100 MG CAP PO SCH ×3 (08:31→20:10)
[2020-02-10] MEDS: REMEDY PHYTOPLEX Z-GUARD PASTE 113GM TUBE (FROM STOREROOM PRODUCT) TOP SCH ×3 (08:31→20:11)
--- NOTE | 2020-02-10 11:24 | PMRDS ---
DATE OF ADMISSION: 02/02/2020 DATE OF DISCHARGE: 02/05/2020 CHIEF COMPLAINT/DISCHARGE DIAGNOSIS: Left ankle fracture. HISTORY OF PRESENT ILLNESS: This is a 69-year-old female with a past medical history of osteoporosis, depression, peripheral neuropathy from CIDP, colon cancer; status post chemo and resection, overactive bladder, who presented to [facility] ED on 02/01/2020 with left ankle pain following a fracture sustained seven weeks prior and splinted, but fell down a set of stairs at home on 01/31/2020 with worsening ankle fracture. She was seen by orthopedics, who re-casted her ankle and made her non-weightbearing. Labs confirmed anemia. Her blood pressure was elevated and she was placed on supplemental oxygen for desaturation. She was evaluated by therapy and found to have impairments in mobility and ADLs, and deemed medically appropriate for discharge to ARU on 02/02/2020. PAST MEDICAL HISTORY: As per HPI. HOSPITAL COURSE: Patient was admitted and enrolled in comprehensive PT/OT program. She received 24-hour nursing supervision and was treated for high blood pressure with blood pressure medications and her pain was controlled with Oxycodone. Patient continued to be non-weightbearing to her left lower extremity and was maintained on aspirin and Plavix for unknown history of PVD versus CAD and Lyrica for her history of peripheral polyneuropathy. She was followed closely by orthopedics during her hospital stay. Repeat ankle x-ray was performed and decision was made by orthopedics to discharge patient to the OR for ORIF on 02/05/2020. After which, patient will be admitted for inpatient stay. Thank you for this referral. YUNIOR
--- NOTE | 2020-02-10 12:28 | IPNPDOC ---
PM&R Progress Note DATE OF SERVICE: Feb 10, 2020 Retail Sales Associate Bilingual Progress Note Subjective: Patient reporting she feels ready to go home Sunday and will have a ramp built next week, but can negotiate stairs at this time well enough. REVIEW OF SYSTEMS: The following is a completed review of systems and has been reviewed. Review of systems otherwise unremarkable. PAIN: Patient self reports left ankle pain EYES: No recent vision changes EARS, NOSE, & THROAT: No throat pain, or dysphagia, or rhinorrhea CARDIOVASCULAR: Denies chest pain or palpitations PULMONARY: Denies shortness of breath GASTROINTESTINAL: Denies constipation/diarrhea GENITOURINARY: denies dysuria MUSCULOSKELETAL:left ankle fracture NEUROLOGICAL:+peripheral polyneuropathy HEMATOLOGICAL: denies easy bruising SKIN: no rash PSYCHIATRIC: Unremarkable All other review of systems found to be negative. PHYSICAL EXAMINATION: VITAL SIGNS: Please see below. GENERAL: Pleasant and cooperative. No acute distress. obese HEENT: PERRL. Extraocular movements intact. Clear conjunctiva CARDIOVASCULAR: Regular rate and rhythm. No murmurs, rubs, or gallops LUNGS: Clear to auscultation bilaterally. No wheezes. No rhonchi ABDOMEN: Soft, nontender, nondistended. Positive bowel sounds. Normal active bowel sounds NEUROLOGICAL: Alert and oriented times three. Cranial nerves II through XII gr ossly intact. Sensation decreased to light touch bilat LE EXTREMITIES: 5\5 strength bilateral upper extremities. 5\5 strength right lower extremity. >3/5 left hip flexor, able to wiggle toes (limited due to casting) 5 SKIN: intact bilat LE warm and well perfused ASSESSMENT:69-year-old F with past medical history of HTN and colon cancer who presents status post fall with left fibula fracture PLAN: 1. Rehab- PT/OT advance mobility and ADLs, strengthen/stretch/maintain ROM all 4 limbs, NWB LLE, room privileges today from wheelchair level 2. 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 CArdiac- hx of HTN with elevated BPs on inpatient unit, will c/u to monitor address pain, and adjust meds prn- medicine consulted to assist in overall management -c/u ASA and plavix, hx of PVD or CAD unknown 4. Resp- monitor for infection, encourage incentive spirometry 5. - overactive bladder c/u Ditropan, monitor for infection 6. Ortho- NWB to LLE for ankle fracture, ortho consulted, s/p ORIF 02-05-20 without complication, c/u NWB 7. GI ppx- Prilosec 8. DVT ppx- Lovenox 9. Pain- c/u Lyrica, tylenol, c/u oxycodone 7.5 mg q4h prn-patient's pain overall improving 10. Psych- c/u Cymbalta for depression 11. Dispo- had been scheduled for 02-13-20 to home, progressing towards goals Allergies Coded Allergies: meloxicam (Verified Allergy, Unknown, rash, 02/01/20) Vital Signs Vital Signs Date Time Temp Pulse Resp B/P (MAP) Pulse Ox O2 Delivery O2 Flow Rate FiO2 02/10/20 08:29 66 146/69 02/10/20 06:01 98.1 18 98 Room Air Microbiology Microbiology 02/05/20 Respiratory Virus Panel (PCR) (RACHELE) - Final, Complete Current Medications Current Medications Current Medications Medications (Trade) Dose Ordered Sig/Naeem Route PRN Reason Start Time Stop Time Status Last Admin Dose Admin Acetaminophen (Tylenol Tab) 1,000 mg TID PO 02/02/20 21:00 02/05/20 12:29 DC 02/04/20 21:16 Acetaminophen (Tylenol Tab) 1,000 mg TID PO 02/06/20 16:00 02/10/20 08:31 Aspirin (Ecotrin) 81 mg QHS PO 02/02/20 21:00 02/05/20 12:29 DC 02/03/20 21:51 Aspirin (Ecotrin) 81 mg QHS PO 02/06/20 21:00 02/09/20 20:26 Bisacodyl (Dulcolax Suppository) 10 mg DAILYPRN PRN [place] CONSTIPATION 02/02/20 15:30 02/05/20 12:29 DC Bisoprolol Fumarate (Zebeta) 7.5 mg DAILY PO 02/03/20 09:00 02/05/20 12:29 DC 02/04/20 07:43 Bisoprolol Fumarate (Zebeta) 7.5 mg DAILY PO 02/07/20 09:00 02/10/20 08:29 Clopidogrel Bisulfate (PLAVix) 75 mg DAILY PO 02/03/20 09:00 02/05/20 12:29 DC 02/04/20 07:44 Clopidogrel Bisulfate (PLAVix) 75 mg DAILY PO 02/06/20 09:00 02/10/20 08:30 Docusate Sodium (Colace) 100 mg BID PO 02/02/20 21:00 02/05/20 12:29 DC Docusate Sodium (Colace) 100 mg TID PO 02/06/20 16:00 Duloxetine HCl (Cymbalta) 30 mg QHS PO 02/02/20 21:00 02/05/20 12:29 DC 02/04/20 21:16 Duloxetine HCl (Cymbalta) 30 mg QHS PO 02/06/20 21:00 02/09/20 20:28 Duloxetine HCl (Cymbalta) 60 mg DAILY PO 02/03/20 09:00 02/05/20 12:29 DC 02/04/20 07:44 Duloxetine HCl (Cymbalta) 60 mg DAILY PO 02/07/20 09:00 02/10/20 08:30 Enoxaparin Sodium (Lovenox) 40 mg DAILY SC 02/03/20 09:00 02/05/20 12:29 DC 02/04/20 07:45 Enoxaparin Sodium (Lovenox) 40 mg DAILY SC 02/07/20 09:00 02/10/20 08:31 Ferrous Sulfate (Ferrous Sulfate) 325 mg DAILY PO 02/03/20 09:00 02/05/20 12:29 DC 02/04/20 07:44 Ferrous Sulfate (Ferrous Sulfate) 325 mg DAILY PO 02/07/20 09:00 02/10/20 08:30 Lactated Ringer's 1,000 ml @ 125 mls/hr Q8H IV 02/04/20 00:00 02/05/20 12:29 DC 02/05/20 07:46 Magnesium Hydroxide (Milk Of Magnesia) 30 ml DAILYPRN PRN PO CONSTIPATION 02/02/20 15:30 02/05/20 12:29 DC Mycophenolate Mofetil (Cellcept) 1,000 mg QHS PO 02/02/20 21:00 02/05/20 12:29 DC 02/04/20 21:17 Mycophenolate Mofetil (Cellcept) 1,000 mg QHS PO 02/06/20 21:00 02/09/20 20:26 Mycophenolate Mofetil (Cellcept) 1,500 mg DAILY PO 02/03/20 09:00 02/05/20 12:29 DC 02/04/20 07:43 Mycophenolate Mofetil (Cellcept) 1,500 mg DAILY PO 02/07/20 09:00 02/10/20 08:28 Omeprazole (PriLOSEC) 20 mg DAILY PO 02/03/20 09:00 02/05/20 12:29 DC 02/04/20 07:44 Omeprazole (PriLOSEC) 20 mg DAILY PO 02/07/20 09:00 02/10/20 08:30 Oxybutynin Chloride (Ditropan) 5 mg TID PO 02/02/20 16:00 02/05/20 12:29 DC 02/04/20 21:17 Oxybutynin Chloride (Ditropan) 5 mg TID PO 02/06/20 16:00 02/10/20 08:29 Oxycodone HCl (Roxicodone, Oxyir) 5 mg Q4HP PRN PO PAIN 02/02/20 15:30 02/03/20 15:51 DC 02/03/20 13:40 Oxycodone HCl (Roxicodone, Oxyir) 7.5 mg Q4HP PRN PO PAIN 02/03/20 16:00 02/05/20 12:29 DC 02/04/20 23:01 Oxycodone HCl (Roxicodone, Oxyir) 7.5 mg Q4HP PRN PO PAIN 02/06/20 12:45 02/09/20 20:29 Polyethylene Glycol (Miralax) 1 pkt DAILYPRN PRN PO CONSTIPATION 02/06/20 12:45 Pregabalin (Lyrica) 150 mg BID PO 02/02/20 21:00 02/05/20 12:29 DC 02/04/20 21:17 Pregabalin (Lyrica) 150 mg BID PO 02/06/20 21:00 02/10/20 08:30 Senna (Senokot) 1 tab QHS PO 02/02/20 21:00 02/05/20 12:29 DC Senna (Senokot) 1 tab QHSP PRN PO CONSTIPATION 02/06/20 12:45 Telmisartan (Micardis) 40 mg DAILY PO 02/03/20 09:00 02/05/20 12:29 DC 02/04/20 07:42 Telmisartan (Micardis) 40 mg DAILY PO 02/07/20 09:00 02/10/20 08:29 HELEN CHACKO MD Feb 10, 2020 12:28
[2020-02-10 14:00] VITALS: BP 107/53
[2020-02-10 20:00] VITALS: BP 126/60
[2020-02-10] MEDS: ASPIRIN 81 MG ENTERIC TAB PO SCH (20:12)
[2020-02-10] MEDS: oxyCODONE 5MG TAB PO PRN (20:13)
[2020-02-11 06:24] LABS: BASO % 0.2 % (0.0-1.0); EOS # 0.1 10^3/uL (0.0-0.5); EOS % 2.8 % (0.0-3.0); HEMATOCRIT 33.6 % (36.0-47.0); HEMOGLOBIN 10.3 g/dl (12.0-15.5); LYMPH # 1.4 10^3/uL (1.5-5.0); LYMPH % 32.6 % (24.0-44.0); MEAN CORPUSCULAR HGB CONC 30.7 g/dl (32.0-36.5); MEAN CORPUSCULAR VOLUME 91.3 fl (80.0-96.0); MONO # 0.4 10^3/uL (0.0-0.8); NEUTROPHILS # 2.4 10^3/uL (1.5-8.5); NEUTROPHILS % 56.2 % (36.0-66.0); PLATELET COUNT, AUTOMATED 190 10^3/uL (150-450); RED BLOOD COUNT 3.68 10^6/uL (4.00-5.40); WHITE BLOOD COUNT 4.4 10^3/uL (4.0-10.0)
[2020-02-11 06:29] VITALS: BP 148/69
[2020-02-11 06:47] LABS: BLOOD UREA NITROGEN 11 MG/DL (7-18); CALCIUM LEVEL 8.9 MG/DL (8.8-10.2); CARBON DIOXIDE LEVEL 29 MEQ/L (21-32); CHLORIDE LEVEL 109 MEQ/L (98-107); GLOMERULAR FILTRATION RATE > 60.0 (>45); GLUCOSE, FASTING 94 MG/DL (70-100); POTASSIUM SERUM 4.3 MEQ/L (3.5-5.1); SODIUM LEVEL 142 MEQ/L (136-145)
[2020-02-11] MEDS: ACETAMINOPHEN 500 MG TAB PO SCH ×3 (08:45→21:44)
[2020-02-11] MEDS: REMEDY PHYTOPLEX Z-GUARD PASTE 113GM TUBE (FROM STOREROOM PRODUCT) TOP SCH ×3 (09:00→21:00)
[2020-02-11] MEDS: DOCUSATE SODIUM 100 MG CAP PO SCH ×3 (09:00→21:00)
[2020-02-11] MEDS: TELMISARTAN 20 MG TAB PO SCH (09:01)
[2020-02-11] MEDS: MYCOPHENOLATE MOFETIL 250 MG CAP (J7517) PO SCH ×2 (09:02→21:43)
[2020-02-11] MEDS: OMEPRAZOLE 20 MG CAP PO SCH (09:02)
[2020-02-11] MEDS: PREGABALIN 75 MG CAP(LYRICA) PO SCH ×2 (09:02→21:43)
[2020-02-11] MEDS: CLOPIDOGREL 75 MG TAB PO SCH (09:02)
[2020-02-11] MEDS: ENOXAPARIN 40MG/0.4ML SYRINGE (J1650 PER 10MG) SC SCH (09:04)
[2020-02-11] MEDS: DULoxetine 30 MG CAP (CYMBALTA) PO SCH ×2 (09:04→21:43)
[2020-02-11] MEDS: bisoproloL fumarate 5 MG TAB PO SCH (09:04)
[2020-02-11] MEDS: FERROUS SULFATE 325MG TAB PO SCH (09:05)
[2020-02-11] MEDS: oxyBUTYnin 5 MG TAB PO SCH ×3 (09:09→21:43)
--- NOTE | 2020-02-11 13:05 | IPNPDOC ---
PM&R Progress Note DATE OF SERVICE: Feb 11, 2020 Cloth Handler Progress Note Subjective: Patient reporting no further burning pain in her left ankle and that she is hoping to have room privileges from wheelchair level that were deferred yesterday. REVIEW OF SYSTEMS: The following is a completed review of systems and has been reviewed. Review of systems otherwise unremarkable. PAIN: Patient self reports left ankle pain EYES: No recent vision changes EARS, NOSE, & THROAT: No throat pain, or dysphagia, or rhinorrhea CARDIOVASCULAR: Denies chest pain or palpitations PULMONARY: Denies shortness of breath GASTROINTESTINAL: Denies constipation/diarrhea GENITOURINARY: denies dysuria MUSCULOSKELETAL:left ankle fracture NEUROLOGICAL:+peripheral polyneuropathy HEMATOLOGICAL: denies easy bruising SKIN: no rash PSYCHIATRIC: Unremarkable All other review of systems found to be negative. PHYSICAL EXAMINATION: VITAL SIGNS: Please see below. GENERAL: Pleasant and cooperative. No acute distress. obese HEENT: PERRL. Extraocular movements intact. Clear conjunctiva CARDIOVASCULAR: Regular rate and rhythm. No murmurs, rubs, or gallops LUNGS: Clear to auscultation bilaterally. No wheezes. No rhonchi ABDOMEN: Soft, nontender, nondistended. Positive bowel sounds. Normal active bowel sounds NEUROLOGICAL: Alert and oriented times three. Cranial nerves II through XII grossly intact. Sensation decreased to light touch bilat LE EXTREMITIES: 5\5 strength bilateral upper extremities. 5\5 strength right lower extremity. >3/5 left hip flexor, able to wiggle toes (limited due to casting) 5 SKIN: intact bilat LE warm and well perfused ASSESSMENT:69-year-old F with past medical history of HTN and colon cancer who presents status post fall with left fibula fracture PLAN: 1. Rehab- PT/OT advance mobility and ADLs, strengthen/stretch/maintain ROM all 4 limbs, NWB LLE, room privileges today from wheelchair level deferred due to some inconsistencies in OT, will confirm with therapy staff to clarify current mobility level 2. 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 CArdiac- hx of HTN with elevated BPs on inpatient unit, will c/u to monitor address pain-stable, adjust meds prn- medicine consulted to assist in overall management -c/u ASA and plavix, hx of PVD or CAD unknown 4. Resp- monitor for infection, encourage incentive spirometry 5. - overactive bladder c/u Ditropan, monitor for infection 6. Ortho- NWB to LLE for ankle fracture, ortho consulted, s/p ORIF 02-05-20 without complication, c/u NWB 7. GI ppx- Prilosec 8. DVT ppx- Lovenox 9. Pain- c/u Lyrica, tylenol, c/u oxycodone 7.5 mg q4h prn-patient's pain ov erall improving 10. Psych- c/u Cymbalta for depression 11. Dispo- had been scheduled for 02-13-20 to home, progressing towards goals, however will postpone until 02-17-20 to work on stair negotiation Allergies Coded Allergies: meloxicam (Verified Allergy, Unknown, rash, 02/01/20) Vital Signs Vital Signs Date Time Temp Pulse Resp B/P (MAP) Pulse Ox O2 Delivery O2 Flow Rate FiO2 02/11/20 09:04 72 148/69 02/11/20 06:29 97.1 95 95 Room Air Laboratory Data CBC/BMP Laboratory Tests 02/11/20 06:10 Labs 24H Laboratory Tests 2 02/11/20 06:10: Immature Granulocyte % (Auto) 0.2, Neutrophils (%) (Auto) 56.2, Lymphocytes (%) (Auto) 32.6, Monocytes (%) (Auto) 8.0H, Eosinophils (%) (Auto) 2.8, Basophils (%) (Auto) 0.2, Neutrophils # (Auto) 2.4, Lymphocytes # (Auto) 1.4L, Monocytes # (Auto) 0.4, Eosinophils # (Auto) 0.1, Basophils # (Auto) 0.0, Nucleated Red Blood Cells % (auto) 0.0, Anion Gap 4L, Glomerular Filtration Rate > 60.0, Calcium Level 8.9 Microbiology Microbiology 02/05/20 Respiratory Virus Panel (PCR) (RACHELE) - Final, Complete Current Medications Current Medications Current Medications Medications (Trade) Dose Ordered Sig/Naeem Route PRN Reason Start Time Stop Time Status Last Admin Dose Admin Acetaminophen (Tylenol Tab) 1,000 mg TID PO 02/02/20 21:00 02/05/20 12:29 DC 02/04/20 21:16 Acetaminophen (Tylenol Tab) 1,000 mg TID PO 02/06/20 16:00 02/11/20 08:45 Aspirin (Ecotrin) 81 mg QHS PO 02/02/20 21:00 02/05/20 12:29 DC 02/03/20 21:51 Aspirin (Ecotrin) 81 mg QHS PO 02/06/20 21:00 02/10/20 20:12 Bisacodyl (Dulcolax Suppository) 10 mg DAILYPRN PRN [place] CONSTIPATION 02/02/20 15:30 02/05/20 12:29 DC Bisoprolol Fumarate (Zebeta) 7.5 mg DAILY PO 02/03/20 09:00 02/05/20 12:29 DC 02/04/20 07:43 Bisoprolol Fumarate (Zebeta) 7.5 mg DAILY PO 02/07/20 09:00 02/11/20 09:04 Clopidogrel Bisulfate (PLAVix) 75 mg DAILY PO 02/03/20 09:00 02/05/20 12:29 DC 02/04/20 07:44 Clopidogrel Bisulfate (PLAVix) 75 mg DAILY PO 02/06/20 09:00 02/11/20 09:02 Docusate Sodium (Colace) 100 mg BID PO 02/02/20 21:00 02/05/20 12:29 DC Docusate Sodium (Colace) 100 mg TID PO 02/06/20 16:00 Duloxetine HCl (Cymbalta) 30 mg QHS PO 02/02/20 21:00 02/05/20 12:29 DC 02/04/20 21:16 Duloxetine HCl (Cymbalta) 30 mg QHS PO 02/06/20 21:00 02/10/20 20:12 Duloxetine HCl (Cymbalta) 60 mg DAILY PO 02/03/20 09:00 02/05/20 12:29 DC 02/04/20 07:44 Duloxetine HCl (Cymbalta) 60 mg DAILY PO 02/07/20 09:00 02/11/20 09:04 Enoxaparin Sodium (Lovenox) 40 mg DAILY SC 02/03/20 09:00 02/05/20 12:29 DC 02/04/20 07:45 Enoxaparin Sodium (Lovenox) 40 mg DAILY SC 02/07/20 09:00 02/11/20 09:04 Ferrous Sulfate (Ferrous Sulfate) 325 mg DAILY PO 02/03/20 09:00 02/05/20 12:29 DC 02/04/20 07:44 Ferrous Sulfate (Ferrous Sulfate) 325 mg DAILY PO 02/07/20 09:00 02/11/20 09:05 Lactated Ringer's 1,000 ml @ 125 mls/hr Q8H IV 02/04/20 00:00 02/05/20 12:29 DC 02/05/20 07:46 Magnesium Hydroxide (Milk Of Magnesia) 30 ml DAILYPRN PRN PO CONSTIPATION 02/02/20 15:30 02/05/20 12:29 DC Mycophenolate Mofetil (Cellcept) 1,000 mg QHS PO 02/02/20 21:00 02/05/20 12:29 DC 02/04/20 21:17 Mycophenolate Mofetil (Cellcept) 1,000 mg QHS PO 02/06/20 21:00 02/10/20 20:12 Mycophenolate Mofetil (Cellcept) 1,500 mg DAILY PO 02/03/20 09:00 02/05/20 12:29 DC 02/04/20 07:43 Mycophenolate Mofetil (Cellcept) 1,500 mg DAILY PO 02/07/20 09:00 02/11/20 09:02 Omeprazole (PriLOSEC) 20 mg DAILY PO 02/03/20 09:00 02/05/20 12:29 DC 02/04/20 07:44 Omeprazole (PriLOSEC) 20 mg DAILY PO 02/07/20 09:00 02/11/20 09:02 Oxybutynin Chloride (Ditropan) 5 mg TID PO 02/02/20 16:00 02/05/20 12:29 DC 02/04/20 21:17 Oxybutynin Chloride (Ditropan) 5 mg TID PO 02/06/20 16:00 02/11/20 09:09 Oxycodone HCl (Roxicodone, Oxyir) 5 mg Q4HP PRN PO PAIN 02/02/20 15:30 02/03/20 15:51 DC 02/03/20 13:40 Oxycodone HCl (Roxicodone, Oxyir) 7.5 mg Q4HP PRN PO PAIN 02/03/20 16:00 02/05/20 12:29 DC 02/04/20 23:01 Oxycodone HCl (Roxicodone, Oxyir) 7.5 mg Q4HP PRN PO PAIN 02/06/20 12:45 02/10/20 20:13 Polyethylene Glycol (Miralax) 1 pkt DAILYPRN PRN PO CONSTIPATION 02/06/20 12:45 Pregabalin (Lyrica) 150 mg BID PO 02/02/20 21:00 02/05/20 12:29 DC 02/04/20 21:17 Pregabalin (Lyrica) 150 mg BID PO 02/06/20 21:00 02/11/20 09:02 Senna (Senokot) 1 tab QHS PO 02/02/20 21:00 02/05/20 12:29 DC Senna (Senokot) 1 tab QHSP PRN PO CONSTIPATION 02/06/20 12:45 Telmisartan (Micardis) 40 mg DAILY PO 02/03/20 09:00 02/05/20 12:29 DC 02/04/20 07:42 Telmisartan (Micardis) 40 mg DAILY PO 02/07/20 09:00 02/11/20 09:01 HELEN CHACKO MD Feb 11, 2020 13:05
[2020-02-11 14:00] VITALS: BP 130/64
[2020-02-11] MEDS: ASPIRIN 81 MG ENTERIC TAB PO SCH (21:43)
[2020-02-11 21:45] VITALS: BP 141/63
[2020-02-11] MEDS: oxyCODONE 5MG TAB PO PRN (23:27)
[2020-02-12 05:50] VITALS: BP 128/81
[2020-02-12] MEDS: REMEDY PHYTOPLEX Z-GUARD PASTE 113GM TUBE (FROM STOREROOM PRODUCT) TOP SCH ×3 (09:00→20:52)
[2020-02-12] MEDS: ENOXAPARIN 40MG/0.4ML SYRINGE (J1650 PER 10MG) SC SCH (09:00)
[2020-02-12] MEDS: DOCUSATE SODIUM 100 MG CAP PO SCH ×3 (09:00→20:52)
[2020-02-12] MEDS: bisoproloL fumarate 5 MG TAB PO SCH (09:00)
[2020-02-12] MEDS: CLOPIDOGREL 75 MG TAB PO SCH (09:00)
[2020-02-12] MEDS: ACETAMINOPHEN 500 MG TAB PO SCH ×4 (09:00→20:51)
[2020-02-12] MEDS: DULoxetine 30 MG CAP (CYMBALTA) PO SCH ×2 (09:00→20:51)
[2020-02-12] MEDS: FERROUS SULFATE 325MG TAB PO SCH (09:00)
[2020-02-12] MEDS: oxyBUTYnin 5 MG TAB PO SCH ×3 (09:00→20:51)
[2020-02-12] MEDS: OMEPRAZOLE 20 MG CAP PO SCH (09:00)
[2020-02-12] MEDS: TELMISARTAN 20 MG TAB PO SCH (09:00)
[2020-02-12] MEDS: MYCOPHENOLATE MOFETIL 250 MG CAP (J7517) PO SCH ×2 (09:00→20:51)
[2020-02-12] MEDS: PREGABALIN 75 MG CAP(LYRICA) PO SCH ×2 (09:00→20:52)
[2020-02-12 14:00] VITALS: BP 128/61
--- NOTE | 2020-02-12 17:59 | IPNPDOC ---
PM&R Progress Note DATE OF SERVICE: Feb 12, 2020 Scheduling Administrator Progress Note Subjective: Patient seen in her room eating dinner with her , in good spirits, no complaints. REVIEW OF SYSTEMS: The following is a completed review of systems and has been reviewed. Review of systems otherwise unremarkable. PAIN: Patient self reports left ankle pain EYES: No recent vision changes EARS, NOSE, & THROAT: No throat pain, or dysphagia, or rhinorrhea CARDIOVASCULAR: Denies chest pain or palpitations PULMONARY: Denies shortness of breath GASTROINTESTINAL: Denies constipation/diarrhea GENITOURINARY: denies dysuria MUSCULOSKELETAL:left ankle fracture NEUROLOGICAL:+peripheral polyneuropathy HEMATOLOGICAL: denies easy bruising SKIN: no rash PSYCHIATRIC: Unremarkable All other review of systems found to be negative. PHYSICAL EXAMINATION: VITAL SIGNS: Please see below. GENERAL: Pleasant and cooperative. No acute distress. obese HEENT: PERRL. Extraocular movements intact. Clear conjunctiva CARDIOVASCULAR: Regular rate and rhythm. No murmurs, rubs, or gallops LUNGS: Clear to auscultation bilaterally. No wheezes. No rhonchi ABDOMEN: Soft, nontender, nondistended. Positive bowel sounds. Normal active bowel sounds NEUROLOGICAL: Alert and oriented times three. Cranial nerves II through XII grossly intact. Sensation decreased to light touch bilat LE EXTREMITIES: 5\5 strength bilateral upper extremities. 5\5 strength right lower extremity. >3/5 left hip flexor, able to wiggle toes (limited due to casting) 5 SKIN: intact bilat LE warm and well perfused ASSESSMENT:69-year-old F with past medical history of HTN and colon cancer who presents status post fall with left fibula fracture PLAN: 1. Rehab- PT/OT advance mobility and ADLs, strengthen/stretch/maintain ROM all 4 limbs, NWB LLE, room privileges today from wheelchair level 2. 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 CArdiac- hx of HTN with elevated BPs on inpatient unit, will c/u to monitor address pain-stable, adjust meds prn- medicine consulted to assist in overall management -c/u ASA and plavix, hx of PVD or CAD unknown 4. Resp- monitor for infection, encourage incentive spirometry 5. - overactive bladder c/u Ditropan, monitor for infection 6. Ortho- NWB to LLE for ankle fracture, ortho consulted, s/p ORIF 02-05-20 without complication, c/u NWB 7. GI ppx- Prilosec 8. DVT ppx- Lovenox 9. Pain- c/u Lyrica, tylenol, c/u oxycodone 7.5 mg q4h prn-patient's pain overall improving 10. Psych- c/u Cymbalta for depression 11. Dispo- had been scheduled for 02-13-20 to home, progressing towards goals, however will postpone until 02-17-20 to work on stair negotiation Allergies Coded Allergies: meloxicam (Verified Allergy, Unknown, rash, 02/01/20) Vital Signs Vital Signs Date Time Temp Pulse Resp B/P (MAP) Pulse Ox O2 Delivery O2 Flow Rate FiO2 02/12/20 14:00 97.0 70 18 128/61 (83) 96 Room Air Microbiology Microbiology 02/05/20 Respiratory Virus Panel (PCR) (RACHELE) - Final, Complete Current Medications Current Medications Current Medications Medications (Trade) Dose Ordered Sig/Naeem Route PRN Reason Start Time Stop Time Status Last Admin Dose Admin Acetaminophen (Tylenol Tab) 1,000 mg TID PO 02/02/20 21:00 02/05/20 12:29 DC 02/04/20 21:16 Acetaminophen (Tylenol Tab) 1,000 mg TID PO 02/06/20 16:00 02/12/20 16:31 Aspirin (Ecotrin) 81 mg QHS PO 02/02/20 21:00 02/05/20 12:29 DC 02/03/20 21:51 Aspirin (Ecotrin) 81 mg QHS PO 02/06/20 21:00 02/11/20 21:43 Bisacodyl (Dulcolax Suppository) 10 mg DAILYPRN PRN [place] CONSTIPATION 02/02/20 15:30 02/05/20 12:29 DC Bisoprolol Fumarate (Zebeta) 7.5 mg DAILY PO 02/03/20 09:00 02/05/20 12:29 DC 02/04/20 07:43 Bisoprolol Fumarate (Zebeta) 7.5 mg DAILY PO 02/07/20 09:00 02/12/20 09:00 Clopidogrel Bisulfate (PLAVix) 75 mg DAILY PO 02/03/20 09:00 02/05/20 12:29 DC 02/04/20 07:44 Clopidogrel Bisulfate (PLAVix) 75 mg DAILY PO 02/06/20 09:00 02/12/20 09:00 Docusate Sodium (Colace) 100 mg BID PO 02/02/20 21:00 02/05/20 12:29 DC Docusate Sodium (Colace) 100 mg TID PO 02/06/20 16:00 Duloxetine HCl (Cymbalta) 30 mg QHS PO 02/02/20 21:00 02/05/20 12:29 DC 02/04/20 21:16 Duloxetine HCl (Cymbalta) 30 mg QHS PO 02/06/20 21:00 02/11/20 21:43 Duloxetine HCl (Cymbalta) 60 mg DAILY PO 02/03/20 09:00 02/05/20 12:29 DC 02/04/20 07:44 Duloxetine HCl (Cymbalta) 60 mg DAILY PO 02/07/20 09:00 02/12/20 09:00 Enoxaparin Sodium (Lovenox) 40 mg DAILY SC 02/03/20 09:00 02/05/20 12:29 DC 02/04/20 07:45 Enoxaparin Sodium (Lovenox) 40 mg DAILY SC 02/07/20 09:00 02/12/20 09:00 Ferrous Sulfate (Ferrous Sulfate) 325 mg DAILY PO 02/03/20 09:00 02/05/20 12:29 DC 02/04/20 07:44 Ferrous Sulfate (Ferrous Sulfate) 325 mg DAILY PO 02/07/20 09:00 02/12/20 09:00 Lactated Ringer's 1,000 ml @ 125 mls/hr Q8H IV 02/04/20 00:00 02/05/20 12:29 DC 02/05/20 07:46 Magnesium Hydroxide (Milk Of Magnesia) 30 ml DAILYPRN PRN PO CONSTIPATION 02/02/20 15:30 02/05/20 12:29 DC Mycophenolate Mofetil (Cellcept) 1,000 mg QHS PO 02/02/20 21:00 02/05/20 12:29 DC 02/04/20 21:17 Mycophenolate Mofetil (Cellcept) 1,000 mg QHS PO 02/06/20 21:00 02/11/20 21:43 Mycophenolate Mofetil (Cellcept) 1,500 mg DAILY PO 02/03/20 09:00 02/05/20 12:29 DC 02/04/20 07:43 Mycophenolate Mofetil (Cellcept) 1,500 mg DAILY PO 02/07/20 09:00 02/12/20 09:00 Omeprazole (PriLOSEC) 20 mg DAILY PO 02/03/20 09:00 02/05/20 12:29 DC 02/04/20 07:44 Omeprazole (PriLOSEC) 20 mg DAILY PO 02/07/20 09:00 02/12/20 09:00 Oxybutynin Chloride (Ditropan) 5 mg TID PO 02/02/20 16:00 02/05/20 12:29 DC 02/04/20 21:17 Oxybutynin Chloride (Ditropan) 5 mg TID PO 02/06/20 16:00 02/12/20 16:31 Oxycodone HCl (Roxicodone, Oxyir) 5 mg Q4HP PRN PO PAIN 02/02/20 15:30 02/03/20 15:51 DC 02/03/20 13:40 Oxycodone HCl (Roxicodone, Oxyir) 7.5 mg Q4HP PRN PO PAIN 02/03/20 16:00 02/05/20 12:29 DC 02/04/20 23:01 Oxycodone HCl (Roxicodone, Oxyir) 7.5 mg Q4HP PRN PO PAIN 02/06/20 12:45 02/11/20 23:27 Polyethylene Glycol (Miralax) 1 pkt DAILYPRN PRN PO CONSTIPATION 02/06/20 12:45 Pregabalin (Lyrica) 150 mg BID PO 02/02/20 21:00 02/05/20 12:29 DC 02/04/20 21:17 Pregabalin (Lyrica) 150 mg BID PO 02/06/20 21:00 02/12/20 09:00 Senna (Senokot) 1 tab QHS PO 02/02/20 21:00 02/05/20 12:29 DC Senna (Senokot) 1 tab QHSP PRN PO CONSTIPATION 02/06/20 12:45 Telmisartan (Micardis) 40 mg DAILY PO 02/03/20 09:00 02/05/20 12:29 DC 02/04/20 07:42 Telmisartan (Micardis) 40 mg DAILY PO 02/07/20 09:00 02/12/20 09:00 HELEN CHACKO MD Feb 12, 2020 17:59
[2020-02-12 20:00] VITALS: BP 122/58
[2020-02-12] MEDS: ASPIRIN 81 MG ENTERIC TAB PO SCH (20:52)
[2020-02-13 06:00] VITALS: BP 149/61
[2020-02-13 07:00] LABS: BASO % 0.5 % (0.0-1.0); EOS # 0.1 10^3/uL (0.0-0.5); EOS % 2.8 % (0.0-3.0); HEMATOCRIT 33.7 % (36.0-47.0); HEMOGLOBIN 10.1 g/dl (12.0-15.5); LYMPH # 1.2 10^3/uL (1.5-5.0); MEAN CORPUSCULAR HEMOGLOBIN 27.9 pg (27.0-33.0); MEAN CORPUSCULAR VOLUME 93.1 fl (80.0-96.0); MONO # 0.5 10^3/uL (0.0-0.8); MONO % 11.3 % (0.0-5.0); NEUTROPHILS # 2.2 10^3/uL (1.5-8.5); NEUTROPHILS % 54.1 % (36.0-66.0); PLATELET COUNT, AUTOMATED 196 10^3/uL (150-450); RED BLOOD COUNT 3.62 10^6/uL (4.00-5.40)
[2020-02-13 07:24] LABS: BLOOD UREA NITROGEN 9 MG/DL (7-18); CALCIUM LEVEL 8.9 MG/DL (8.8-10.2); CARBON DIOXIDE LEVEL 28 MEQ/L (21-32); CHLORIDE LEVEL 108 MEQ/L (98-107); CREATININE FOR GFR 0.79 MG/DL (0.55-1.30); GLOMERULAR FILTRATION RATE > 60.0 (>45); GLUCOSE, FASTING 99 MG/DL (70-100); POTASSIUM SERUM 4.7 MEQ/L (3.5-5.1); SODIUM LEVEL 143 MEQ/L (136-145)
[2020-02-13] MEDS: TELMISARTAN 20 MG TAB PO SCH (08:48)
[2020-02-13] MEDS: PREGABALIN 75 MG CAP(LYRICA) PO SCH ×2 (08:48→21:02)
[2020-02-13] MEDS: OMEPRAZOLE 20 MG CAP PO SCH (08:48)
[2020-02-13] MEDS: MYCOPHENOLATE MOFETIL 250 MG CAP (J7517) PO SCH ×2 (08:49→21:04)
[2020-02-13] MEDS: bisoproloL fumarate 5 MG TAB PO SCH (08:49)
[2020-02-13] MEDS: FERROUS SULFATE 325MG TAB PO SCH (08:50)
[2020-02-13] MEDS: DULoxetine 30 MG CAP (CYMBALTA) PO SCH ×2 (08:50→21:02)
[2020-02-13] MEDS: oxyBUTYnin 5 MG TAB PO SCH ×3 (08:50→21:02)
[2020-02-13] MEDS: CLOPIDOGREL 75 MG TAB PO SCH (08:50)
[2020-02-13] MEDS: DOCUSATE SODIUM 100 MG CAP PO SCH ×3 (08:51→21:00)
[2020-02-13] MEDS: REMEDY PHYTOPLEX Z-GUARD PASTE 113GM TUBE (FROM STOREROOM PRODUCT) TOP SCH ×3 (08:51→21:00)
[2020-02-13] MEDS: ENOXAPARIN 40MG/0.4ML SYRINGE (J1650 PER 10MG) SC SCH (08:51)
[2020-02-13] MEDS: ACETAMINOPHEN 500 MG TAB PO SCH ×3 (08:51→21:03)
[2020-02-13 14:00] VITALS: BP 117/57
[2020-02-13 20:00] VITALS: BP 129/60
[2020-02-13] MEDS: ASPIRIN 81 MG ENTERIC TAB PO SCH (21:02)
[2020-02-14 06:19] VITALS: BP 142/65
[2020-02-14] MEDS: REMEDY PHYTOPLEX Z-GUARD PASTE 113GM TUBE (FROM STOREROOM PRODUCT) TOP SCH ×3 (09:00→20:35)
[2020-02-14] MEDS: DOCUSATE SODIUM 100 MG CAP PO SCH ×3 (09:00→20:34)
[2020-02-14] MEDS: PREGABALIN 75 MG CAP(LYRICA) PO SCH ×2 (09:13→20:33)
[2020-02-14] MEDS: DULoxetine 30 MG CAP (CYMBALTA) PO SCH ×2 (09:14→20:35)
[2020-02-14] MEDS: MYCOPHENOLATE MOFETIL 250 MG CAP (J7517) PO SCH ×2 (09:14→20:32)
[2020-02-14] MEDS: CLOPIDOGREL 75 MG TAB PO SCH (09:14)
[2020-02-14] MEDS: OMEPRAZOLE 20 MG CAP PO SCH (09:14)
[2020-02-14] MEDS: oxyBUTYnin 5 MG TAB PO SCH ×3 (09:14→20:33)
[2020-02-14] MEDS: FERROUS SULFATE 325MG TAB PO SCH (09:14)
[2020-02-14] MEDS: bisoproloL fumarate 5 MG TAB PO SCH (09:15)
[2020-02-14] MEDS: ACETAMINOPHEN 500 MG TAB PO SCH ×3 (09:15→20:33)
[2020-02-14] MEDS: TELMISARTAN 20 MG TAB PO SCH (09:15)
[2020-02-14] MEDS: ENOXAPARIN 40MG/0.4ML SYRINGE (J1650 PER 10MG) SC SCH (09:16)
[2020-02-14 14:00] VITALS: BP 108/53
--- NOTE | 2020-02-14 14:05 | IPNPDOC ---
Text Note Date of Service The patient was seen on 02/14/20. NOTE Subjective: No any acute events overnight. Patient denies fever, chills, nausea, vomiting, diarrhea or dysuria Objective: GENERAL APPEARANCE: NAD HEENT: no scleral icterus, no JVD, EOMI CARDIOVASCULAR: S1S2 LUNGS: CTA ABDOMEN: soft & not tender w palpitation MUSCULOSKELETAL: no cyanosis, no swelling INTEGUMENT: no generalized palor NEUROLOGICAL: cranial nerve function from 2-12 intact intact, follows commands, speech not dysarthric ASSESSMENT: 69-year-old F with past medical history of HTN and colon cancer who presents status post fall with left fibula fracture Deconditioning Secondary to left fibula fracture Continue PT/OT Peripheral neuropathy due to recurrent CIDP, c/u lyrica and mycophenolate Hypertension Continue home cardioprotective medications Blood pressures under control Overactive bladder Ditropan GERD Prilosec Coronary artery diseases Continue home cardioprotective medications VS,Fishbone, I+O VS, Fishbone, I+O Vital Signs Date Time Temp Pulse Resp B/P (MAP) Pulse Ox O2 Delivery O2 Flow Rate FiO2 02/14/20 09:15 86 134/60 02/14/20 06:19 98.0 18 94 Room Air I&O- Last 24 Hours up to 6 AM 02/14/20 06:00 Intake Total 540 ml Balance 540 ml REJI DUPONT DO Feb 14, 2020 14:05
[2020-02-14 20:00] VITALS: BP 128/63
[2020-02-14] MEDS: ASPIRIN 81 MG ENTERIC TAB PO SCH (20:33)
[2020-02-15 06:11] VITALS: BP 133/62
[2020-02-15] MEDS: REMEDY PHYTOPLEX Z-GUARD PASTE 113GM TUBE (FROM STOREROOM PRODUCT) TOP SCH ×3 (09:00→21:00)
[2020-02-15] MEDS: DOCUSATE SODIUM 100 MG CAP PO SCH ×3 (09:00→21:00)
[2020-02-15] MEDS: ENOXAPARIN 40MG/0.4ML SYRINGE (J1650 PER 10MG) SC SCH (09:20)
[2020-02-15] MEDS: MYCOPHENOLATE MOFETIL 250 MG CAP (J7517) PO SCH ×2 (09:20→21:48)
[2020-02-15] MEDS: DULoxetine 30 MG CAP (CYMBALTA) PO SCH ×2 (09:20→21:47)
[2020-02-15] MEDS: bisoproloL fumarate 5 MG TAB PO SCH (09:21)
[2020-02-15] MEDS: PREGABALIN 75 MG CAP(LYRICA) PO SCH ×2 (09:21→21:49)
[2020-02-15] MEDS: CLOPIDOGREL 75 MG TAB PO SCH (09:22)
[2020-02-15] MEDS: ACETAMINOPHEN 500 MG TAB PO SCH ×3 (09:22→21:47)
[2020-02-15] MEDS: TELMISARTAN 20 MG TAB PO SCH (09:22)
[2020-02-15] MEDS: oxyBUTYnin 5 MG TAB PO SCH ×3 (09:22→21:47)
[2020-02-15] MEDS: OMEPRAZOLE 20 MG CAP PO SCH (09:23)
[2020-02-15] MEDS: FERROUS SULFATE 325MG TAB PO SCH (09:23)
[2020-02-15 14:00] VITALS: BP 132/60
[2020-02-15 20:00] VITALS: BP 154/74
[2020-02-15] MEDS: ASPIRIN 81 MG ENTERIC TAB PO SCH (21:47)
[2020-02-16 06:00] VITALS: BP 134/64
[2020-02-16] MEDS: MYCOPHENOLATE MOFETIL 250 MG CAP (J7517) PO SCH ×2 (08:49→20:03)
[2020-02-16] MEDS: DULoxetine 30 MG CAP (CYMBALTA) PO SCH ×2 (08:50→20:03)
[2020-02-16] MEDS: oxyBUTYnin 5 MG TAB PO SCH ×3 (08:50→20:03)
[2020-02-16] MEDS: PREGABALIN 75 MG CAP(LYRICA) PO SCH ×2 (08:50→20:02)
[2020-02-16] MEDS: FERROUS SULFATE 325MG TAB PO SCH (08:50)
[2020-02-16] MEDS: CLOPIDOGREL 75 MG TAB PO SCH (08:50)
[2020-02-16] MEDS: OMEPRAZOLE 20 MG CAP PO SCH (08:50)
[2020-02-16] MEDS: DOCUSATE SODIUM 100 MG CAP PO SCH ×3 (08:50→19:54)
[2020-02-16] MEDS: REMEDY PHYTOPLEX Z-GUARD PASTE 113GM TUBE (FROM STOREROOM PRODUCT) TOP SCH ×3 (08:52→19:53)
[2020-02-16] MEDS: ACETAMINOPHEN 500 MG TAB PO SCH ×3 (08:52→20:03)
[2020-02-16] MEDS: ENOXAPARIN 40MG/0.4ML SYRINGE (J1650 PER 10MG) SC SCH (08:52)
[2020-02-16] MEDS: bisoproloL fumarate 5 MG TAB PO SCH (08:54)
[2020-02-16] MEDS: TELMISARTAN 20 MG TAB PO SCH (08:54)
[2020-02-16 14:00] VITALS: BP 159/72
[2020-02-16 20:00] VITALS: BP 130/60
[2020-02-16] MEDS: ASPIRIN 81 MG ENTERIC TAB PO SCH (20:03)
[2020-02-17 06:00] VITALS: BP 169/75
[2020-02-17] MEDS: REMEDY PHYTOPLEX Z-GUARD PASTE 113GM TUBE (FROM STOREROOM PRODUCT) TOP SCH (09:00)
[2020-02-17] MEDS: DOCUSATE SODIUM 100 MG CAP PO SCH (09:00)
[2020-02-17] MEDS: MYCOPHENOLATE MOFETIL 250 MG CAP (J7517) PO SCH (09:18)
[2020-02-17] MEDS: ACETAMINOPHEN 500 MG TAB PO SCH (09:19)
[2020-02-17] MEDS: DULoxetine 30 MG CAP (CYMBALTA) PO SCH (09:19)
[2020-02-17] MEDS: ENOXAPARIN 40MG/0.4ML SYRINGE (J1650 PER 10MG) SC SCH (09:19)
[2020-02-17 09:20] VITALS: BP 155/75
[2020-02-17] MEDS: bisoproloL fumarate 5 MG TAB PO SCH (09:20)
[2020-02-17] MEDS: TELMISARTAN 20 MG TAB PO SCH (09:20)
[2020-02-17] MEDS: OMEPRAZOLE 20 MG CAP PO SCH (09:21)
[2020-02-17] MEDS: oxyBUTYnin 5 MG TAB PO SCH (09:21)
[2020-02-17] MEDS: FERROUS SULFATE 325MG TAB PO SCH (09:21)
[2020-02-17] MEDS: PREGABALIN 75 MG CAP(LYRICA) PO SCH (09:21)
[2020-02-17] MEDS: CLOPIDOGREL 75 MG TAB PO SCH (09:21)
[2020-02-17] MEDS ORDERED: ASPI32ECTA PO (11:37)
[2020-02-17] MEDS ORDERED: OXYB5TAB10 PO (12:09)
[2020-02-17] MEDS ORDERED: CYMB1CAP5 PO ×2 (12:09)
[2020-02-17] MEDS ORDERED: ACET-683 PO (12:09)
[2020-02-17] MEDS ORDERED: CELL250C PO ×2 (12:09)
[2020-02-17] MEDS ORDERED: MICA5TAB PO (12:09)
[2020-02-17] MEDS ORDERED: CLOP75TA2 PO (12:09)
[2020-02-17] MEDS ORDERED: PEG1POW PO (12:09)
[2020-02-17] MEDS ORDERED: LYRI75CA PO (12:09)
[2020-02-17] MEDS ORDERED: OMEP-218 PO (12:09)
[2020-02-17] MEDS ORDERED: FERR325T18 PO (12:09)
[2020-02-17] MEDS ORDERED: DOCU100C16 PO (12:09)
[2020-02-17] MEDS ORDERED: Pill Cutter XX (12:09)
[2020-02-17] MEDS ORDERED: ASPIRIN ENTERIC 325 MG TAB PO SCH (21:00)
--- NOTE | 2020-02-18 15:38 | DS.PDOC ---
PM&R Discharge Summary [employer] Discharge Note DATE OF ADMISSION: Feb 02, 2020 at 15:33 DATE OF DISCHARGE: Feb 17, 2020 at 15:00 DATE OF DISCHARGE: DISCHARGE DIAGNOSES: 1. Left distal fibula fracture - s/p casting (01/31). 2. L ankle ORIF. 3. Hypertension. 4. Overactive bladder. 5. Depression. 6. Osteoporosis. 7. Chronic inflammatory demyelinating Neuropathy . 8. Colon cancer. 9. GERD PAST MEDICAL HISTORY: 1. Osteoporosis. 2. Hypertension. 3. Chronic inflammatory demyelinating neuropathy. 4. Colon cancer. PAST SURGICAL HISTORY: 1. [02.05.2020 Left ankle open reduction and internal fixation and syndesmosis fixation. HOSPITAL COURSE: Mrs. 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 She presented to [facility] on January 31 with acute left ankle pain. She had fallen 7 weeks prior, sustained a fracture of the left ankle, which was splinted, and apparently fell again with additional fracture. On 01/31, left ankle was casted by orthopedics service. She was nonweightbearing. She was transferred to ARU February 01 for ongoing physical therapy and rehabilitation. She was transferred back to inpatient unit for left ankle ORIF , 02/05/2020 and then referred back to the rehabilitation unit. Challenges with pain management, bladder management, mobility including negotiating stairs, had to be met to comprehensive inpatient rehabilitation including physical therapy, occupational therapy, the ability to nursing and physiatric medical management services. Challenges with blood pressure management had to be become few adjustment in medications and pain management. [place] and to help address overactive bladder symptoms and maintain social continence. The time of discharge, patient had achieved goals, pain was under reasonable control and she was able to demonstrate good safety awareness with transfers and limited mobility skills. PHYSICAL EXAMINATION: VITAL SIGNS: Temperature degrees Fahrenheit, pulse , respiratory rate , blood pressure , % on room air. GENERAL: Well nourished, well developed, sitting up in bed, no acute distress. HEENT: Normocephalic, atraumatic. No facial droop. Pupils Equal, Round, Reactive to Light (PERRL), Extraocular movements are intact (EOMI). CARDIOVASCULAR: S1, S2, regular rate. No significant lower limb edema or calf tenderness bilaterally. LUNGS: Clear to auscultation bilaterally, no wheezing or rhonchi. ABDOMEN: Soft, nontender, nondistended. Normoactive bowel sounds throughout. NEUROLOGICAL: Alert and oriented times three. Answers all questions appropriately. Able to follow commands. MMT: 5/5 bilateral upper extremities and knee extension. There are some sensory changes, stocking glove distribution distally. FUNCTIONAL STATUS AT DISCHARGE: OTHER TESTS: LABORATORY DATA: Please see below. ALLERGIES: See below. MEDICATIONS: See Below. DISCHARGE DISPOSITION: Home with family Medications Medications Current Medications Medications (Trade) Dose Ordered Sig/Naeem Route PRN Reason Start Time Stop Time Status Last Admin Dose Admin Acetaminophen (Tylenol Tab) 1,000 mg TID PO 02/02/20 21:00 02/05/20 12:29 DC 02/04/20 21:16 Acetaminophen (Tylenol Tab) 1,000 mg TID PO 02/06/20 16:00 02/17/20 16:34 DC 02/17/20 09:19 Aspirin (Ecotrin) 81 mg QHS PO 02/02/20 21:00 02/05/20 12:29 DC 02/03/20 21:51 Aspirin (Ecotrin) 81 mg QHS PO 02/06/20 21:00 02/17/20 09:38 DC 02/16/20 20:03 Aspirin (Ecotrin) 325 mg QHS PO 02/17/20 21:00 02/17/20 16:34 DC Bisacodyl (Dulcolax Suppository) 10 mg DAILYPRN PRN [place] CONSTIPATION 02/02/20 15:30 02/05/20 12:29 DC Bisoprolol Fumarate (Zebeta) 7.5 mg DAILY PO 02/03/20 09:00 02/05/20 12:29 DC 02/04/20 07:43 Bisoprolol Fumarate (Zebeta) 7.5 mg DAILY PO 02/07/20 09:00 02/17/20 16:34 DC 02/17/20 09:20 Clopidogrel Bisulfate (PLAVix) 75 mg DAILY PO 02/03/20 09:00 02/05/20 12:29 DC 02/04/20 07:44 Clopidogrel Bisulfate (PLAVix) 75 mg DAILY PO 02/06/20 09:00 02/17/20 16:34 DC 02/17/20 09:21 Docusate Sodium (Colace) 100 mg BID PO 02/02/20 21:00 02/05/20 12:29 DC Docusate Sodium (Colace) 100 mg TID PO 02/06/20 16:00 02/17/20 16:34 DC Duloxetine HCl (Cymbalta) 30 mg QHS PO 02/02/20 21:00 02/05/20 12:29 DC 02/04/20 21:16 Duloxetine HCl (Cymbalta) 30 mg QHS PO 02/06/20 21:00 02/17/20 16:34 DC 02/16/20 20:03 Duloxetine HCl (Cymbalta) 60 mg DAILY PO 02/03/20 09:00 02/05/20 12:29 DC 02/04/20 07:44 Duloxetine HCl (Cymbalta) 60 mg DAILY PO 02/07/20 09:00 02/17/20 16:34 DC 02/17/20 09:19 Enoxaparin Sodium (Lovenox) 40 mg DAILY SC 02/03/20 09:00 02/05/20 12:29 DC 02/04/20 07:45 Enoxaparin Sodium (Lovenox) 40 mg DAILY SC 02/07/20 09:00 02/17/20 16:34 DC 02/17/20 09:19 Ferrous Sulfate (Ferrous Sulfate) 325 mg DAILY PO 02/03/20 09:00 02/05/20 12:29 DC 02/04/20 07:44 Ferrous Sulfate (Ferrous Sulfate) 325 mg DAILY PO 02/07/20 09:00 02/17/20 16:34 DC 02/17/20 09:21 Lactated Ringer's 1,000 ml @ 125 mls/hr Q8H IV 02/04/20 00:00 02/05/20 12:29 DC 02/05/20 07:46 Magnesium Hydroxide (Milk Of Magnesia) 30 ml DAILYPRN PRN PO CONSTIPATION 02/02/20 15:30 02/05/20 12:29 DC Mycophenolate Mofetil (Cellcept) 1,000 mg QHS PO 02/02/20 21:00 02/05/20 12:29 DC 02/04/20 21:17 Mycophenolate Mofetil (Cellcept) 1,000 mg QHS PO 02/06/20 21:00 02/17/20 16:34 DC 02/16/20 20:03 Mycophenolate Mofetil (Cellcept) 1,500 mg DAILY PO 02/03/20 09:00 02/05/20 12:29 DC 02/04/20 07:43 Mycophenolate Mofetil (Cellcept) 1,500 mg DAILY PO 02/07/20 09:00 02/17/20 16:34 DC 02/17/20 09:18 Omeprazole (PriLOSEC) 20 mg DAILY PO 02/03/20 09:00 02/05/20 12:29 DC 02/04/20 07:44 Omeprazole (PriLOSEC) 20 mg DAILY PO 02/07/20 09:00 02/17/20 16:34 DC 02/17/20 09:21 Oxybutynin Chloride (Ditropan) 5 mg TID PO 02/02/20 16:00 02/05/20 12:29 DC 02/04/20 21:17 Oxybutynin Chloride (Ditropan) 5 mg TID PO 02/06/20 16:00 02/17/20 16:34 DC 02/17/20 09:21 Oxycodone HCl (Roxicodone, Oxyir) 5 mg Q4HP PRN PO PAIN 02/02/20 15:30 02/03/20 15:51 DC 02/03/20 13:40 Oxycodone HCl (Roxicodone, Oxyir) 7.5 mg Q4HP PRN PO PAIN 02/03/20 16:00 02/05/20 12:29 DC 02/04/20 23:01 Oxycodone HCl (Roxicodone, Oxyir) 7.5 mg Q4HP PRN PO PAIN 02/06/20 12:45 02/17/20 16:34 DC 02/11/20 23:27 Polyethylene Glycol (Miralax) 1 pkt DAILYPRN PRN PO CONSTIPATION 02/06/20 12:45 02/17/20 16:34 DC Pregabalin (Lyrica) 150 mg BID PO 02/02/20 21:00 02/05/20 12:29 DC 02/04/20 21:17 Pregabalin (Lyrica) 150 mg BID PO 02/06/20 21:00 02/17/20 16:34 DC 02/17/20 09:21 Senna (Senokot) 1 tab QHS PO 02/02/20 21:00 02/05/20 12:29 DC Senna (Senokot) 1 tab QHSP PRN PO CONSTIPATION 02/06/20 12:45 02/17/20 16:34 DC Telmisartan (Micardis) 40 mg DAILY PO 02/03/20 09:00 02/05/20 12:29 DC 02/04/20 07:42 Telmisartan (Micardis) 40 mg DAILY PO 02/07/20 09:00 02/17/20 16:34 DC 02/17/20 09:20 Scheduled Acetaminophen (Acetaminophen) 500 Mg Tablet, 1,000 MG PO TID Alendronate Sodium (Alendronate Sodium) 70 Mg Tablet, 70 MG PO 1XWK, (Reported) SUNDAYS Ascorbic Acid/Ascorbate Sodium (Vitamin C 500 mg Wafer) 500 Mg Wafer, 500 MG PO TID, (Reported) Aspirin (Aspirin EC) 325 Mg Tablet.dr, 325 MG PO QHS Bisoprolol Fumarate (Bisoprolol Fumarate) 5 Mg Tablet, 7.5 MG PO DAILY Clopidogrel Bisulfate (Clopidogrel) 75 Mg Tablet, 75 MG PO DAILY Docusate Sodium (Docusate Sodium) 100 Mg Capsule, 100 MG PO TID Duloxetine Hcl (Cymbalta) 60 Mg Capsule.dr, 60 MG PO DAILY, (Reported) Duloxetine Hcl (Duloxetine HCl) 30 Mg Capsule.dr, 30 MG PO QHS, (Reported) Duloxetine Hcl (Cymbalta) 30 Mg Capsule.dr, 30 MG PO QHS Duloxetine Hcl (Cymbalta) 30 Mg Capsule.dr, 60 MG PO DAILY Ergocalciferol (Vitamin D2) (Drisdol) 1,250 Mcg Capsule, 1,250 MCG PO 2XW, (Reported) SHELLEY ROQUE Ferrous Sulfate (Iron) 325 Mg Tablet, 325 MG PO DAILY, (Reported) Ferrous Sulfate (Ferrous Sulfate) 325 Mg Tablet, 325 MG PO DAILY Immun Glob G(IgG)/Gly/Iga Ov50 (Gammagard Liquid 10% Vial) 300 Ml Vial, 75 GM IV ASDIRECTED, (Reported) EVERY 8 WEEKS. DUE TO GET ON 02/05. Mycophenolate Mofetil (Cellcept) 500 Mg Tablet, 1,500 MG PO DAILY, (Reported) Mycophenolate Mofetil (Cellcept) 500 Mg Tablet, 1,000 MG PO QHS, (Reported) Mycophenolate Mofetil (Cellcept) 250 Mg Capsule, 1,500 MG PO DAILY Mycophenolate Mofetil (Cellcept) 250 Mg Capsule, 1,000 MG PO QHS Omeprazole (Omeprazole) 20 Mg Cap, 20 MG PO DAILY, (Reported) Omeprazole (Omeprazole) 20 Mg Capsule.dr, 20 MG PO DAILY Oxybutynin Chloride (Oxybutynin Chloride) 5 Mg Tab, 5 MG PO TID, (Reported) Oxybutynin Chloride (Oxybutynin Chloride) 5 Mg Tablet, 5 MG PO TID Pregabalin (Pregabalin) 75 Mg Capsule, 150 MG PO BID, (Reported) Pregabalin (Lyrica) 75 Mg Capsule, 150 MG PO BID Telmisartan (Micardis) 40 Mg Tab, 40 MG PO DAILY, (Reported) Telmisartan (Micardis) 20 Mg Tablet, 40 MG PO DAILY Scheduled PRN Oxycodone HCl (Oxycodone HCl) 5 Mg Tablet, 7.5 MG PO Q6HP PRN for PAIN Polyethylene Glycol 3350 (Polyethylene Glycol 3350) 17 Gm Powd.pack, 1 PKT PO DAILYPRN PRN for CONSTIPATION [Pill Cutter] 1 EACH EA, 1 EACH XX ASDIRECTED PRN for TO SPLIT MEDICATION Allergies Coded Allergies: meloxicam (Verified Allergy, Unknown, rash, 02/01/20) HOMA RUSS MD Feb 18, 2020 15:38
== END 2020-02-17 15:00 | disposition home health service (06) | DRG 561 ==
LOC: M PM&R 15:33 → UNDODISIN 02-05 12:15 → M PM&R 02-06 15:31
PROVIDERS: ADMIT Physical Medicine & Rehabilitation; ATTEND Physical Medicine & Rehabilitation
DX: S82.492D Other fracture of shaft of left fibula, subsequent encounter for closed fracture with routine healing (principal); W10.9XXD Fall (on) (from) unspecified stairs and steps, subsequent encounter; Y92.009 Unspecified place in unspecified non-institutional (private) residence as the place of occurrence of the external cause; I10 Essential (primary) hypertension; M81.0 Age-related osteoporosis without current pathological fracture; F32.9 Major depressive disorder, single episode, unspecified; G62.89 Other specified polyneuropathies; K21.9 Gastro-esophageal reflux disease without esophagitis; R51.9 Headache, unspecified; Z90.49 Acquired absence of other specified parts of digestive tract; Z92.21 Personal history of antineoplastic chemotherapy; N32.81 Overactive bladder; Z79.82 Long term (current) use of aspirin; Z79.02 Long term (current) use of antithrombotics/antiplatelets; Z85.038 Personal history of other malignant neoplasm of large intestine; Z79.899 Other long term (current) drug therapy; Z88.6 Allergy status to analgesic agent; Z74.09 Other reduced mobility

== ENCOUNTER 2020-02-05 14:04 | Inpatient (IN) | payer MEDICARE, OTHER ==
[~2020-02-05] VITALS: Ht 167.6 cm; Wt 125.0 kg
[~2020-02-05 14:04] MED LIST changes: +LIDOCAINE 2% 100MG/5ML SDV (FOR ANES.) As Ordered ONE; +METOCLOPRAMIDE INJ 10MG/2ML VIAL (J2765 PER 1) As Ordered ONE; +MIDAZOLAM INJ 2MG/2ML VIAL (J2250 PER 1MG) As Ordered ONE; +ONDANSETRON 4MG/2ML VIAL As Ordered ONE; +ROCURONIUM BROMIDE 50 MG/5 ML VIAL As Ordered ONE; +ceFAZolin 1GM VIAL (J0690 PER 500MG) As Ordered ONE; +ceFAZolin 2 GM/D5W 50 ML IV BAG (J0690 PER 500MG) As Ordered ONE; +fentaNYL 100 MCG/2 ML INJECTION (J3010) As Ordered ONE; +propofoL 200 MG/20 ML VIAL As Ordered ONE
--- NOTE | 2020-02-05 14:20 | HPEPDOC ---
[facility] Medical History & Physical Date of Admission Feb 05, 2020 Date of Service: Feb 05, 2020 History and Physical CHIEF COMPLAINT: L ankle fracture HISTORY OF PRESENT ILLNESS: Patient is a 69-year-old female with a PMHx of HTN, Overactive bladder, Depression, Osteoporosis, Neuropathy, Colon CA (Dx: 03/2019; s/p Surgery and Chemotherapy), GERD who presented to [facility] for left ankle fracture. Patient has had a recent left ankle fracture 7 weeks ago, which was splinted by the ER providers and subsequently casted by orthopedics surgery. Patient had a cast remain in place for approximately 5 weeks followed by a boot for 2 weeks. She has had one week that was uneventful. On 01/30. Patient sustained a fall down the stairs with worsening pain over prior ankle fracture. She returned to [facility], orthopedic service casted her ankle and recommended she be nonweightbearing. She was evaluated by therapy and deemed appropriate for discharge to acute rehabilitation unit on 02/01. She was back to inpatient unit for a left ORIF of ankle surgery performed by Dr. Keegan Borrego. Plan to return to the pending 3 days of admission. PAST MEDICAL HISTORY: 1. Neuropathy. 2. Colon cancer with chemotherapy. 3. HTN. 4. CDIP PAST SURGICAL HISTORY: 1. Appendectomy. 2. Gallbladder removal. 3. Hysterectomy. 4. Colon cancer resection. SOCIAL HISTORY: Patient denies smoking Patient denies etoh use Patient denies illicit drug use FAMILY HISTORY: patient reports hx of cancer and heart disease but unable to specify ALLERGIES: Please see below. REVIEW OF SYSTEMS: CONSTITUTIONAL: patient denies fevers, chills HEENT: patient denies blurred vision, loss of vision, headache,. CARDIOVASCULAR: patient denies chest pain, palpitations. RESPIRATORY: patient denies shortness of breath, cough, hemoptysis. GASTROINTESTINAL: patient denies abdominal pain, n/v/d, blood in stool. GENITOURINARY: patient denies dysuria, discharge. SKIN: patient denies rashes. MUSCULOSKELETAL: l ankle fracture, casted NEUROLOGICAL: patient denies focal weakness, numbness, seizures. PSYCHIATRIC: patient denies SI/HI. ENDOCRINE: patient denies polyuria, heat intolerance, cold intolerance. HEMATOLOGIC/LYMPHATIC: patient denies easy bruising. . HOME MEDICATIONS: Please see below. PHYSICAL EXAMINATION: VITAL SIGNS: please see below. General: NAD, comfortable HEENT: PERRLA, EOMI, sclerae clear Neck: supple, normal ROM, no JVD Respiratory: lungs CTAB, no wheeze, no rales, no crackles CVS: RRR, normal S1, S2, no murmurs Abdo: soft, no masses, no hepatosplenomegaly, BS+, no rebound tenderness Extremities: no edema, pulses 2+ MSK: in wheelchair, L ankle operative site dressing clean and intact Neuro: no focal neuro deficits, moving all 4 extremities, CN2-12 intact. Psych: calm, cooperative, AAO x 3 LABORATORY DATA: See below. MICROBIOLOGY: Please see below. ASSESSMENT: Mrs. 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 She presented to [facility] on January 31 with acute left ankle pain. She had fallen on January 30. 7 weeks prior, she had sustained a fracture of the left ankle, which was splinted. On 01/31, left ankle was casted by orthopedics service. She was nonweightbearing. She was transferred to ARU February 01 for ongoing physical therapy and rehabilitation. She was transferred back to inpatient unit for left ankle ORIF. Plan remain inpatient for 3 days afterwards she will return to ARU for ongoing physical therapy. PLAN: Left distal fibula fracture - s/p casting (01/31) - Patient had initially fallen down the stairs on 01/30 morning after she had st umbled - Patient has had casting completed by Dr. Kegean Borrego of orthopedic surgery on 01/31 - was at ARU since 02/01. - POD#0 s/p L ankle ORIF - continue PT/OT. - pain control with oxycodone 7.5 mg q4h prn - plan to return to ARU HTN - BP currently well controlled - c/w Bisoprolol and Telmisartan with holding parameters Overactive bladder - c/w Oxybutynin Depression - c/w Duloxetine Osteoporosis - Patient Neuropathy - 2/2 CIDP - Patient reports that she takes ASA 81 and Plavix for her legs, but denies any imaging studies that have suggested peripheral vascular disease - Provide with patient that she has chronic inflammatory demyelinating polyneuropathy and follows with a neurologist in [facility] Dr. Vicente - c/w Lyrica and Mycophenolate mofetil - receives IVIG infusions at [facility]. Next IVIG session 02/20/20. - Call SECRETARY BOOK KEEPER Neha Mehta to confirm safety of administration of flu and pna vaccine within 2 week window. [phone]. Colon CA - Dx: 03/2019 - s/p Surgery; patient has had partial resection of her colon including of the liver metastasis - s/p Chemotherapy for 12 week course, last dose was 10/2019 - Patient follows with [facility], Dr. Cora Mcdermott of oncology - Patient has had repeat abdominal CT scan imaging completed 11/2019, which was noted to be normal as per the patient GERD - c/w Omeprazole DVT prophylaxis - c/w Lovenox Dispo: Admission to spend more than 2 midnights. Plan to return to ARU for ongoing physical therapy. Home Medications Scheduled Alendronate Sodium (Alendronate Sodium) 70 Mg Tablet, 70 MG PO 1XWK SUNDAYS Ascorbic Acid/Ascorbate Sodium (Vitamin C 500 mg Wafer) 500 Mg Wafer, 500 MG PO TID Bisoprolol Fumarate (Bisoprolol Fumarate) 5 Mg Tablet, 5 MG PO DAILY Duloxetine Hcl (Cymbalta) 60 Mg Capsule.dr, 60 MG PO DAILY Duloxetine Hcl (Duloxetine HCl) 30 Mg Capsule.dr, 30 MG PO QHS Ergocalciferol (Vitamin D2) (Drisdol) 1,250 Mcg Capsule, 1,250 MCG PO 2XW TU, THURS Ferrous Sulfate (Iron) 325 Mg Tablet, 325 MG PO DAILY Immun Glob G(IgG)/Gly/Iga Ov50 (Gammagard Liquid 10% Vial) 300 Ml Vial, 75 GM IV ASDIRECTED EVERY 8 WEEKS. DUE TO GET ON 02/05. Mycophenolate Mofetil (Cellcept) 500 Mg Tablet, 1,500 MG PO DAILY Mycophenolate Mofetil (Cellcept) 500 Mg Tablet, 1,000 MG PO QHS Omeprazole (Omeprazole) 20 Mg Cap, 20 MG PO DAILY Oxybutynin Chloride (Oxybutynin Chloride) 5 Mg Tab, 5 MG PO TID Pregabalin (Pregabalin) 75 Mg Capsule, 150 MG PO BID Telmisartan (Micardis) 40 Mg Tab, 40 MG PO DAILY Allergies Coded Allergies: meloxicam (Verified Allergy, Unknown, rash, 02/01/20) A-FIB/CHADSVASC A-FIB History Current/History of A-Fib/PAF?: No Current PO Anticoag Therapy: FELIPE Grimm MD Feb 05, 2020 14:20
[2020-02-05] MEDS ORDERED: BUPIVACAINE HCL 0.25% 30ML VIAL As Ordered ONE (15:03)
[2020-02-05] MEDS ORDERED: HYDROmorphone HCL 2 MG/ML 1ML VIAL (J1170) As Ordered ONE (15:18)
[2020-02-05] MEDS ORDERED: fentaNYL 100 MCG/2 ML INJECTION (J3010) IV PRN (15:30)
[2020-02-05] MEDS ORDERED: LR 1,000 ML IV SCH ×2 (15:30)
[2020-02-05] MEDS ORDERED: ONDANSETRON 4MG/2ML VIAL IV PRN (15:30)
[2020-02-05 17:00] VITALS: BP 125/53
[2020-02-05 17:30] VITALS: BP 122/55
[2020-02-05 18:00] VITALS: BP 122/57
[2020-02-05] MEDS ORDERED: oxyCODONE 5MG TAB PO PRN (18:30)
[2020-02-05 19:00] VITALS: BP 120/57
[2020-02-05] MEDS ORDERED: PILL CUTTER 1 EACH XX PRN (19:15)
[2020-02-05] MEDS ORDERED: DULoxetine 30 MG CAP (CYMBALTA) PO SCH (21:00)
[2020-02-05] MEDS ORDERED: MYCOPHENOLATE MOFETIL 250 MG CAP (J7517) PO SCH (21:00)
[2020-02-05] MEDS: PREGABALIN 75 MG CAP(LYRICA) PO SCH (21:03)
[2020-02-05] MEDS: ceFAZolin SOD 2 GM in IV 1 EA IV SCH (21:03)
[2020-02-05] MEDS: oxyBUTYnin 5 MG TAB PO SCH (21:03)
[2020-02-05] MEDS: MORPHINE 2 MG/ML 1ML VIAL (J2270) IV PRN (21:06)
[2020-02-05 22:00] VITALS: BP 139/63
[2020-02-06] MEDS: oxyCODONE 5MG TAB PO PRN ×2 (01:11→08:52)
[2020-02-06] MEDS: ceFAZolin SOD 2 GM in IV 1 EA IV SCH (05:17)
[2020-02-06] MEDS: MORPHINE 2 MG/ML 1ML VIAL (J2270) IV PRN (05:18)
[2020-02-06 06:00] VITALS: BP 133/56
--- NOTE | 2020-02-06 08:08 | IPNPDOC ---
Date Seen The patient was seen on 02/06/20. Progress Note SUBJECTIVE: Seen and examined at bedside. No acute events overnight. Pain /10. Denies chest pain, n/v/d, shortness of breath or palpitations. OBJECTIVE PHYSICAL EXAMINATION: CONSTITUTIONAL: patient denies fevers, chills HEENT: patient denies blurred vision, loss of vision, headache,. CARDIOVASCULAR: patient denies chest pain, palpitations. RESPIRATORY: patient denies shortness of breath, cough, hemoptysis. GASTROINTESTINAL: patient denies abdominal pain, n/v/d, blood in stool. GENITOURINARY: patient denies dysuria, discharge. SKIN: patient denies rashes. MUSCULOSKELETAL: L ankle ORIF dressing clean, intact NEUROLOGICAL: patient denies focal weakness, numbness, seizures. PSYCHIATRIC: patient denies SI/HI. ENDOCRINE: patient denies polyuria, heat intolerance, cold intolerance. HEMATOLOGIC/LYMPHATIC: patient denies easy bruising. . LABORATORY DATA, IMAGING STUDIES, MICROBIOLOGY: Please see below. DVT prophylaxis ordered?: Y, gentry ASSESSMENT: Mrs. 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 She presented to [facility] on January 31 with acute left ankle pain. She had fallen on January 30. 7 weeks prior, she had sustained a fracture of the left ankle, which was splinted. On 01/31, left ankle was casted by orthopedics service. She was nonweightbearing. She was transferred to ARU February 01 for ongoing physical therapy and rehabilitation. She was transferred back to inpatient unit for left ankle ORIF. Plan remain inpatient for 3 days afterwards she will return to ARU for ongoing physical therapy. PLAN: Left distal fibula fracture - s/p casting (01/31) - Patient had initially fallen down the stairs on 01/30 morning after she had stumbled - Patient has had casting completed by Dr. Keegan Borrego of orthopedic surgery on 01/31 - was at ARU since 02/01. - POD#1 s/p L ankle ORIF - continue PT/OT. - pain control with oxycodone 7.5 mg q4h prn - plan to return to ARU HTN - BP currently well controlled - c/w Bisoprolol and Telmisartan with holding parameters Overactive bladder - c/w Oxybutynin Depression - c/w Duloxetine Osteoporosis - Patient Neuropathy - 2/2 CIDP - Patient reports that she takes ASA 81 and Plavix for her legs, but denies any imaging studies that have suggested peripheral vascular disease - Provide with patient that she has chronic inflammatory demyelinating polyneuropathy and follows with a neurologist in [place], Dr. Vicente - c/w Lyrica and Mycophenolate mofetil - receives IVIG infusions at [facility]. Next IVIG session 02/20/20. - Call ESE TEACHER Neha Mehta to confirm safety of administration of flu and pna vaccine within 2 week window. [phone]. Colon CA - Dx: 03/2019 - s/p Surgery; patient has had partial resection of her colon including of the liver metastasis - s/p Chemotherapy for 12 week course, last dose was 10/2019 - Patient follows with [facility], Dr. Cora Mcdermott of oncology - Patient has had repeat abdominal CT scan imaging completed 11/2019, which was noted to be normal as per the patient GERD - c/w Omeprazole DVT prophylaxis - c/w Lovenox Dispo: Admission to spend more than 2 midnights. Plan to return to ARU for ongoing physical therapy. VS, I&O, 24H, Fishbone Vital Signs/I&O Vital Signs Date Time Temp Pulse Resp B/P (MAP) Pulse Ox O2 Delivery O2 Flow Rate FiO2 02/06/20 06:00 99.6 90 18 133/56 (81) 98 Room Air 02/05/20 16:15 2 I&O- Last 24 Hours up to 6 AM 02/06/20 06:00 Intake Total 2910 ml Output Total 450 ml Balance 2460 ml Laboratory Data 24H LABS Laboratory Tests 2 02/06/20 07:30: 02/06/20 07:31: CBC/BMP FELIPE LIMA MD Feb 06, 2020 08:08
[2020-02-06 08:09] LABS: EOS # 0.1 10^3/uL (0.0-0.5); EOS % 0.9 % (0.0-3.0); HEMATOCRIT 31.4 % (36.0-47.0); HEMOGLOBIN 9.7 g/dl (12.0-15.5); LYMPH # 0.9 10^3/uL (1.5-5.0); LYMPH % 15.5 % (24.0-44.0); MEAN CORPUSCULAR HEMOGLOBIN 28.3 pg (27.0-33.0); MEAN CORPUSCULAR HGB CONC 30.9 g/dl (32.0-36.5); MEAN CORPUSCULAR VOLUME 91.5 fl (80.0-96.0); MONO # 0.5 10^3/uL (0.0-0.8); MONO % 9.5 % (0.0-5.0); NEUTROPHILS # 4.1 10^3/uL (1.5-8.5); NEUTROPHILS % 73.9 % (36.0-66.0); PLATELET COUNT, AUTOMATED 140 10^3/uL (150-450); RED BLOOD COUNT 3.43 10^6/uL (4.00-5.40); WHITE BLOOD COUNT 5.5 10^3/uL (4.0-10.0)
[2020-02-06 08:28] LABS: ALBUMIN 2.9 GM/DL (3.2-5.2); ALT/SGPT 17 U/L (12-78); BILIRUBIN,TOTAL 0.7 MG/DL (0.2-1.0); BLOOD UREA NITROGEN 8 MG/DL (7-18); CALCIUM LEVEL 8.3 MG/DL (8.8-10.2); CARBON DIOXIDE LEVEL 31 MEQ/L (21-32); CHLORIDE LEVEL 104 MEQ/L (98-107); CREATININE FOR GFR 0.69 MG/DL (0.55-1.30); GLOMERULAR FILTRATION RATE > 60.0 (>45); GLUCOSE, FASTING 104 MG/DL (70-100); MAGNESIUM LEVEL 1.7 MG/DL (1.8-2.4); SODIUM LEVEL 140 MEQ/L (136-145); TOTAL PROTEIN 5.9 GM/DL (6.4-8.2)
[2020-02-06 08:51] VITALS: BP 133/56
[2020-02-06] MEDS: PREGABALIN 75 MG CAP(LYRICA) PO SCH (08:51)
[2020-02-06] MEDS: oxyBUTYnin 5 MG TAB PO SCH (08:52)
[2020-02-06] MEDS ORDERED: DULoxetine 30 MG CAP (CYMBALTA) PO SCH (09:00)
[2020-02-06] MEDS ORDERED: TELMISARTAN 20 MG TAB PO SCH (09:00)
[2020-02-06] MEDS ORDERED: PREVNAR 13 VACCINE SYRINGE IM ONE (09:00)
[2020-02-06] MEDS ORDERED: bisoproloL fumarate 5 MG TAB PO SCH ×2 (09:00)
[2020-02-06] MEDS ORDERED: MYCOPHENOLATE MOFETIL 250 MG CAP (J7517) PO SCH (09:00)
[2020-02-06] MEDS ORDERED: FERROUS SULFATE 325MG TAB PO SCH (09:00)
[2020-02-06] MEDS ORDERED: ENOXAPARIN 40MG/0.4ML SYRINGE (J1650 PER 10MG) SC SCH (09:00)
[2020-02-06] MEDS ORDERED: OMEPRAZOLE 20 MG CAP PO SCH (09:00)
[2020-02-06] MEDS ORDERED: FLUBLOK(EGG FREE)(QUAD)INFLUENZA VACC 0.5ML SYRINGE 18YRS & OLDER IM ONE (09:00)
[2020-02-06] MEDS ORDERED: BISO5TAB14 PO (11:33)
[2020-02-06] MEDS ORDERED: OXYC-517 PO (11:33)
--- NOTE | 2020-02-06 11:39 | DS.PDOC ---
Discharge Summary General Date of Admission Feb 05, 2020 at 17:00 Date of Discharge 02/06/20 Attending Physician: FELIPE LIMA MD Specialist/Consultants Involve: KEEGAN DIXON MD Discharge Summary PROCEDURES PERFORMED DURING STAY: ORIF L ankle by Dr. Dixon. ADMITTING DIAGNOSES: L distal fibula fracture Osteoporosis CIDP HTN Overactive bladder Depression Neuropathy Colon ca GERD DISCHARGE DIAGNOSES: L distal fibula fracture Osteoporosis CIDP HTN Overactive bladder Depression Neuropathy Colon ca GERD COMPLICATIONS/CHIEF COMPLAINT: Fibula Fracture. HISTORY OF PRESENT ILLNESS: Patient is a 69-year-old female with a PMHx of HTN, Overactive bladder, Depression, Osteoporosis, Neuropathy, Colon CA (Dx: 03/2019; s/p Surgery and Chemotherapy), GERD who presented to [facility] for left ankle fracture. Patient has had a recent left ankle fracture 7 weeks ago, which was splinted by the ER providers and subsequently casted by orthopedics surgery. Patient had a cast remain in place for approximately 5 weeks followed by a boot for 2 weeks. She has had one week that was uneventful. On 01/30. Patient sustained a fall down the stairs with worsening pain over prior ankle fracture. She returned to [facility], or [facility] service casted her ankle and recommended she be nonweightbearing. She was evaluated by therapy and deemed appropriate for discharge to acute rehabilitation unit on 02/01. She was transferred to inpatient unit for a left ORIF of ankle surgery performed by Dr. Keegan Dixon. HOSPITAL COURSE: Left distal fibula fracture - s/p L ankle ORIF - was at ARU since 02/01. - POD#2 s/p L ankle ORIF - continue PT/OT. - pain control with oxycodone 7.5 mg q4h prn - return to ARU HTN - BP currently well controlled - c/w Bisoprolol and Telmisartan with holding parameters Overactive bladder - c/w Oxybutynin Depression - c/w Duloxetine Osteoporosis - Patient Neuropathy - 2/2 CIDP - Patient reports that she takes ASA 81 and Plavix for her legs, but denies any imaging studies that have suggested peripheral vascular disease - Provide with patient that she has chronic inflammatory demyelinating polyneuropathy and follows with a neurologist in [place], Dr. Vicente - c/w Lyrica and Mycophenolate mofetil - receives IVIG infusions at [facility]. Next IVIG session 02/20/20. - Dr. Cruz called MACHINE SNELLER Neha Mehta to confirm safety of administration of flu and pna vaccine within 2 week window. [phone]. - patient states she was called by DONALDO Mehta and was assured Flu and prevnar are safe within 2 weeks of IVIG. - patient had received flu and prevnar 02/05/20 - Called clinic and confirmed safety. Patient was called on 02/05/20. Colon CA - Dx: 03/2019 - s/p Surgery; patient has had partial resection of her colon including of the liver metastasis - s/p Chemotherapy for 12 week course, last dose was 10/2019 - Patient follows with [facility], Dr. Cora Mcdermott of oncology - Patient has had repeat abdominal CT scan imaging completed 11/2019, which was noted to be normal as per the patient GERD - c/w Omeprazole DVT prophylaxis - c/w Lovenox Dispo: Admission to spend more than 2 midnights. Plan to return to ARU for ongoing physical therapy. DISCHARGE MEDICATIONS: Please see below. ALLERGIES: Please see below. PHYSICAL EXAMINATION ON DISCHARGE: VITAL SIGNS: Please see below. CONSTITUTIONAL: patient denies fevers, chills HEENT: patient denies blurred vision, loss of vision, headache,. CARDIOVASCULAR: patient denies chest pain, palpitations. RESPIRATORY: patient denies shortness of breath, cough, hemoptysis. GASTROINTESTINAL: patient denies abdominal pain, n/v/d, blood in stool. GENITOURINARY: patient denies dysuria, discharge. SKIN: patient denies rashes. MUSCULOSKELETAL: L ankle ORIF dressing clean, intact NEUROLOGICAL: patient denies focal weakness, numbness, seizures. PSYCHIATRIC: patient denies SI/HI. ENDOCRINE: patient denies polyuria, heat intolerance, cold intolerance. HEMATOLOGIC/LYMPHATIC: patient denies easy bruising. LABORATORY DATA: Please see below. PROGNOSIS: good ACTIVITY: [As tolerated]. DIET: Regular DISCHARGE PLAN: ARU, PCP and ORTHOPEDICS follow up DISPOSITION: ARU DISCHARGE INSTRUCTIONS: 1. Follow-up with PCP within 3-5 days of discharge 2. Follow-up with orthopedic surgery within 1-2 weeks of discharge 3. Is recalled that you have an appointment for IVIG infusion on 02/20/2020 at the [facility] 4. Follow-up with your neurologist in [place] within 2-4 weeks of discharge. 5. Please follow-up with your oncologist within 2-4 weeks of discharge. ITEMS TO FOLLOWUP ON ON OUTPATIENT: IVIG at [facility] 02/20/20. DISCHARGE CONDITION: Stable TIME SPENT ON DISCHARGE: Greater than 30 minutes. Vital Signs/I&Os Vital Signs Date Time Temp Pulse Resp B/P (MAP) Pulse Ox O2 Delivery O2 Flow Rate FiO2 02/06/20 09:22 18 02/06/20 08:51 90 133/56 02/06/20 06:00 99.6 98 Room Air 02/05/20 16:15 2 I&O- Last 24 Hours up to 6 AM 02/06/20 06:00 Intake Total 2910 ml Output Total 450 ml Balance 2460 ml Laboratory Data Labs 24H Laboratory Tests 2 02/06/20 07:30: Immature Granulocyte % (Auto) 0.2, Neutrophils (%) (Auto) 73.9H, Lymphocytes (%) (Auto) 15.5L, Monocytes (%) (Auto) 9.5H, Eosinophils (%) (Auto) 0.9, Basophils (%) (Auto) 0.0, Neutrophils # (Auto) 4.1, Lymphocytes # (Auto) 0.9L, Monocytes # (Auto) 0.5, Eosinophils # (Auto) 0.1, Basophils # (Auto) 0.0, Nucleated Red Blood Cells % (auto) 0.0 02/06/20 07:31: Anion Gap 5L, Glomerular Filtration Rate > 60.0, Calcium Level 8.3L, Magnesium Level 1.7L, Total Bilirubin 0.7, Aspartate Amino Transf (AST/SGOT) 17, Alanine Aminotransferase (ALT/SGPT) 17, Alkaline Phosphatase 109, Total Protein 5.9L, Albumin 2.9L, Albumin/Globulin Ratio 1.0L CBC/BMP Laboratory Tests 02/06/20 07:30 02/06/20 07:31 Discharge Medications Scheduled Alendronate Sodium (Alendronate Sodium) 70 Mg Tablet, 70 MG PO 1XWK, (Reported) SUNDAYS Ascorbic Acid/Ascorbate Sodium (Vitamin C 500 mg Wafer) 500 Mg Wafer, 500 MG PO TID, (Reported) Bisoprolol Fumarate (Bisoprolol Fumarate) 5 Mg Tablet, 7.5 MG PO DAILY Duloxetine Hcl (Cymbalta) 60 Mg Capsule.dr, 60 MG PO DAILY, (Reported) Duloxetine Hcl (Duloxetine HCl) 30 Mg Capsule.dr, 30 MG PO QHS, (Reported) Ergocalciferol (Vitamin D2) (Drisdol) 1,250 Mcg Capsule, 1,250 MCG PO 2XW, (Reported) SHELLEY ROQUE Ferrous Sulfate (Iron) 325 Mg Tablet, 325 MG PO DAILY, (Reported) Immun Glob G(IgG)/Gly/Iga Ov50 (Gammagard Liquid 10% Vial) 300 Ml Vial, 75 GM IV ASDIRECTED, (Reported) EVERY 8 WEEKS. DUE TO GET ON 02/05. Mycophenolate Mofetil (Cellcept) 500 Mg Tablet, 1,500 MG PO DAILY, (Reported) Mycophenolate Mofetil (Cellcept) 500 Mg Tablet, 1,000 MG PO QHS, (Reported) Omeprazole (Omeprazole) 20 Mg Cap, 20 MG PO DAILY, (Reported) Oxybutynin Chloride (Oxybutynin Chloride) 5 Mg Tab, 5 MG PO TID, (Reported) Pregabalin (Pregabalin) 75 Mg Capsule, 150 MG PO BID, (Reported) Telmisartan (Micardis) 40 Mg Tab, 40 MG PO DAILY, (Reported) Scheduled PRN Oxycodone HCl (Oxycodone HCl) 5 Mg Tablet, 7.5 MG PO Q6HP PRN for PAIN Allergies Coded Allergies: meloxicam (Verified Allergy, Unknown, rash, 02/01/20) FELIPE LIMA MD Feb 06, 2020 11:39
--- NOTE | 2020-02-10 11:27 | REP ---
C-ARM VIEWS LEFT ANKLE TECHNIQUE: Five C-arm views of the left ankle are performed. FINDINGS: There is a metallic plate fixed by multiple metallic screws in the distal fibula. Two of these screws extend into the distal tibia. The osseous structures are well aligned. The ankle mortise is anatomic. FLUROSCOPY TIME: 50 seconds utilized. MTDD
--- NOTE | 2020-02-17 08:03 | RO ---
DATE OF OPERATION: 02/05/2020 PREOPERATIVE DIAGNOSIS: Left ankle fracture, syndesmosis injury. POSTOPERATIVE DIAGNOSIS: Left ankle fracture, syndesmosis injury. PLANNED PROCEDURE: Left ankle open reduction and internal fixation and syndesmosis fixation. PROCEDURE PERFORMED: Left ankle open reduction and internal fixation and syndesmosis fixation. SURGEON: Keegan Borrego MD ANESTHESIOLOGIST: Dr. Melvin TYPE OF ANESTHESIA: General anesthetic and local. SHROUD LINE TIER: None. OPERATIVE PREAMBLE: This 69-year-old female had a mechanical fall. She sustained displaced ankle fracture. This was unstable with an obvious syndesmosis disruption. We discussed pros, cons, risks and benefits related to surgery with her and her who I met on the wards yesterday evening. She wished to go ahead and signed consent form for surgery. Risks discussed included but not limited to infection, pain, stiffness, weakness, damage to surrounding structures, neurovascular injury, nonunion, complications of blood clots, , other risks. She wished to go ahead. I marked the left lower extremity and proceeded to surgery. I saw her in preoperative holding to ensure that nothing had changed and to check the swelling which was appropriate to go ahead. OPERATIVE REPORT: The patient was brought to the operating theater. She was placed supine on the operating room table. 2 gm IV Ancef was administered and general anesthesia was induced. Bump was placed under the left thigh. Bone Foam leg positioner was used. All bony prominences were appropriately padded. Tourniquet was applied and appropriate padding as well. Bear hugger was used. SCDs were used on the down leg. Limb was prepped and draped in usual sterile fashion allowing over 3 minutes for prep solution drying time with Chlorhexidine-based prep solution. Preoperative time out was performed confirming the site, patient and surgery. I began by using sterile Esmarch up the leg and then inflated the tourniquet to 250 mmHg and removed the Esmarch. I made a posterolateral incision centered over the lateral aspect of the ankle. The incision length about 6 inches after determining the location of the fracture with intraop fluoroscopy. Carried dissection down through skin and subcutaneous tissue, dissecting down the anterior border of the peroneal tendons and lateral aspect of the fibula. I did clean away any interposed periosteum and fracture hematoma. I achieved anatomic reduction with alligator forceps and pointed reduction forceps. I attempted to align the fracture. I used 2.7 mm threaded cortical screw. The fracture appeared out to length, normal Dime sign of the ankle. Syndesmosis appeared a little bit wide but under visualization as well as on x-ray the fracture looked fine. I then selected 9-hole one-third tubular plate. I placed this on the lateral side of the bone. I secured this proximally and distally with 3.5 mm fully threaded cortical screws. Plate was coming down onto the lateral aspect of the bone in mid to distal aspect and slightly displaced the fracture. I did take out the lag screw. The fracture still appeared out to length and as such the remaining screw holes were filled with 3.5 mm fully threaded cortical lag screws at the fracture site above and below. The two screw holes at the syndesmosis were left. It appeared to hold the fracture nicely out to length with appropriate appearance of the mortise and tibial/fibular overlap, tibial fibular clear space and medial clear space of the ankle on both AP and mortise radiographs as well as on the lateral. I then used 2.9 mm drill to drill two fully threaded cortical 4.0 mm syndesmosis screws aiming slightly anteriorly. I used periarticular reduction clamp large at the lateral and medial malleolus ensuring not to overly compress the syndesmosis. I used direct visualization as well as feeling the syndesmosis. I did also attempt to simply use my fingers to clamp the syndesmosis but it was still wide in medial clear space. I ensured that I did not put a rotational force on the syndesmosis to overlay the distal fibula anteriorly. The syndesmosis screws were appropriately placed, these measured 56 and 50 mm. Periarticular reduction clamp was removed. Final radiographs were taken. Syndesmosis appeared appropriately reduced on the lateral as well as anteroposterior. Final radiographs were saved. Ankle range of motion was full. Syndesmosis was fixed with ankle in neutral. Tourniquet was taken down. Wounds were thoroughly irrigated with normal saline and Ancef solution. Subcutaneous tissue closed with interrupted 2-0 Vicryl sutures and running 2-0 Vicryl suture as well. Skin was cleaned with wet-to-dry dressing after closure with tree as well as 10 mL of 0.25% Marcaine instilled in and around the incision site. Adaptic, 4 x 8 gauze was then placed, ABD dressing. Three-sided below-knee plaster of Magda splint was then placed with foot in neutral and used sterile cast padding and over-wrapped with sterile 6 inch Nikolai bandage. The cast was allowed to fully harden, all drapes were removed. The patient was awoken from general anesthetic, transferred off operating room table and taken to postanesthesia care unit in stable condition. All sponge, needle, clamps and instrument counts were correct. No complications. Estimated blood loss 50 mL. Plan for the patient is to be admitted to Hospitalist Service. May have a high degree of difficulty mobilizing him due to lower extremity neuropathy. I chose posterolateral incision due to the fact for the decreased complication rate compared to direct lateral incision along the fibula. She will be nonweightbearing at least 6 weeks. Follow up in the clinic in 2 week time. Elevate the leg, remove tree in 2 weeks. Be placed back on DVT prophylaxis postop day 1. YUNIOR
== END 2020-02-06 13:32 | disposition home health service (06) | DRG 493 ==
LOC: M SDC 14:04 → M MS5PR 17:00
PROVIDERS: ADMIT Family Medicine; ATTEND Family Medicine
PROC: 0QSK04Z Reposition Left Fibula with Internal Fixation Device, Open Approach (ICD-10-PCS; principal; 2020-02-05 13:00)
DX: S82.452A Displaced comminuted fracture of shaft of left fibula, initial encounter for closed fracture (principal); G61.81 Chronic inflammatory demyelinating polyneuritis; W10.9XXA Fall (on) (from) unspecified stairs and steps, initial encounter; Y92.009 Unspecified place in unspecified non-institutional (private) residence as the place of occurrence of the external cause; Z85.038 Personal history of other malignant neoplasm of large intestine; Z92.21 Personal history of antineoplastic chemotherapy; I10 Essential (primary) hypertension; Z90.49 Acquired absence of other specified parts of digestive tract; N32.81 Overactive bladder; M81.0 Age-related osteoporosis without current pathological fracture; F32.9 Major depressive disorder, single episode, unspecified; K21.9 Gastro-esophageal reflux disease without esophagitis; Z79.899 Other long term (current) drug therapy; Z88.6 Allergy status to analgesic agent

== ENCOUNTER 2020-02-20 07:34 | Outpatient (CLI) | payer MEDICARE, OTHER ==
[~2020-02-20] VITALS: Ht 165.1 cm; Wt 110.0 kg
[2020-02-20] VITALS (7 sets, daily range): BP systolic 123–133; BP diastolic 57–63
[~2020-02-20 07:34] MED LIST changes: +ACET-683 PO; +ASPI32ECTA PO; +CELL250C PO; +CLOP75TA2 PO; +CYMB1CAP5 PO; +DOCU100C16 PO; +FERR325T18 PO; -LIDOCAINE 2% 100MG/5ML SDV (FOR ANES.) As Ordered ONE; +LYRI75CA PO; -METOCLOPRAMIDE INJ 10MG/2ML VIAL (J2765 PER 1) As Ordered ONE; +MICA5TAB PO; -MIDAZOLAM INJ 2MG/2ML VIAL (J2250 PER 1MG) As Ordered ONE; +OMEP-218 PO; -ONDANSETRON 4MG/2ML VIAL As Ordered ONE; +OXYC-517 PO; +PEG1POW PO; +Pill Cutter XX; -ROCURONIUM BROMIDE 50 MG/5 ML VIAL As Ordered ONE; -ceFAZolin 1GM VIAL (J0690 PER 500MG) As Ordered ONE; -ceFAZolin 2 GM/D5W 50 ML IV BAG (J0690 PER 500MG) As Ordered ONE; -fentaNYL 100 MCG/2 ML INJECTION (J3010) As Ordered ONE; -propofoL 200 MG/20 ML VIAL As Ordered ONE
[2020-02-20] MEDS ORDERED: HYDROCORTISONE 100 MG/2 ML VIAL (J1720 PER 1) IV ONE (07:45)
[2020-02-20] MEDS ORDERED: IMMUNE GLOBULIN 10% 5 GM in IV 1 EA IV ONE (07:45)
[2020-02-20] MEDS ORDERED: IMMUNE GLOBULIN 10% 20 GM in IV 1 EA IV ONE (07:45)
[2020-02-20] MEDS ORDERED: SODIUM CHLORIDE 0.9% INJ 10 ML SYR IV PRN (07:45)
[2020-02-20] MEDS ORDERED: IMMUNE GLOBULIN 10% 40 GM in IV 1 EA IV ONE (07:45)
[2020-02-20] MEDS ORDERED: IMMUNE GLOBULIN 10% 10 GM in IV 1 EA IV ONE (07:45)
[2020-02-20] MEDS ORDERED: SODIUM CHLORIDE 0.9% INJ 10 ML SYR IV SCH (09:00)
== END 2020-02-20 12:15 | disposition home or self-care (01) ==
LOC: M INFU 07:34
PROVIDERS: ATTEND Nurse Practitioner
DX: G61.81 Chronic inflammatory demyelinating polyneuritis (principal)
CPT/HCPCS: 96365; 96366; J1459; J1642; J1720

== ENCOUNTER 2020-04-16 07:05 | Outpatient (CLI) | payer MEDICARE, OTHER ==
[~2020-04-16] VITALS: Ht 167.6 cm; Wt 110.9 kg
[2020-04-16] VITALS (7 sets, daily range): BP systolic 122–152; BP diastolic 61–78
[~2020-04-16 07:05] MED LIST changes: +HYDROCORTISONE 100 MG/2 ML VIAL (J1720 PER 1) IV ONE; +IMMUNE GLOBULIN 10% 10 GM in IV 1 EA IV ONE; +IMMUNE GLOBULIN 10% 20 GM in IV 1 EA IV ONE; +IMMUNE GLOBULIN 10% 40 GM in IV 1 EA IV ONE; +IMMUNE GLOBULIN 10% 5 GM in IV 1 EA IV ONE
[2020-04-16] MEDS ORDERED: SODIUM CHLORIDE 0.9% INJ 10 ML SYR IV SCH (09:00)
== END 2020-04-16 11:55 | disposition home or self-care (01) ==
LOC: M INFU 07:05
PROVIDERS: ATTEND Nurse Practitioner
DX: G61.81 Chronic inflammatory demyelinating polyneuritis (principal); Z88.8 Allergy status to other drugs, medicaments and biological substances
CPT/HCPCS: 96365; 96366; J1459; J1642; J1720

== ENCOUNTER 2020-06-11 07:06 | Outpatient (CLI) | payer MEDICARE, OTHER ==
[~2020-06-11] VITALS: Ht 167.6 cm; Wt 110.9 kg
[~2020-06-11 07:06] MED LIST changes: -ALEN70TA74 PO; +ALEN70TA82 PO; +SODIUM CHLORIDE 0.9% INJ 10 ML SYR IV PRN
[2020-06-11 07:10] VITALS: BP 132/60
[2020-06-11 08:16] VITALS: BP 123/58
[2020-06-11 08:42] VITALS: BP 133/61
[2020-06-11] MEDS ORDERED: SODIUM CHLORIDE 0.9% INJ 10 ML SYR IV SCH (09:00)
[2020-06-11 09:30] VITALS: BP 134/63
[2020-06-11 11:00] VITALS: BP 134/70
[2020-06-11 13:00] VITALS: BP 148/68
== END 2020-06-11 13:00 | disposition home or self-care (01) ==
LOC: M INFU 07:06
PROVIDERS: ATTEND Nurse Practitioner
DX: G61.81 Chronic inflammatory demyelinating polyneuritis (principal); Z88.8 Allergy status to other drugs, medicaments and biological substances
CPT/HCPCS: 96365; 96366; 96375; J1459; J1642; J1720

== ENCOUNTER → 2020-07-09 | Outpatient (CLI) | payer MEDICARE, OTHER ==
[~2020-07-09] MED LIST changes: -HYDROCORTISONE 100 MG/2 ML VIAL (J1720 PER 1) IV ONE; -IMMUNE GLOBULIN 10% 10 GM in IV 1 EA IV ONE; -IMMUNE GLOBULIN 10% 20 GM in IV 1 EA IV ONE; -IMMUNE GLOBULIN 10% 40 GM in IV 1 EA IV ONE; -IMMUNE GLOBULIN 10% 5 GM in IV 1 EA IV ONE; -PEG1POW PO; +POLY17PO18 PO; -SODIUM CHLORIDE 0.9% INJ 10 ML SYR IV PRN
--- NOTE | 2020-07-09 11:33 | REP ---
INDICATION: F/U AFTER SURGERY. COMPARISON: None. TECHNIQUE: AP, lateral, oblique views of the left foot. FINDINGS: Age-related osteopenia and arthritic degenerative changes are appreciated. Posttraumatic arthritic changes at the ankle noted along with suspected ankle swelling. Lateral view demonstrates stable calcaneal heel spur. No subcutaneous emphysema. IMPRESSION: Ankle swelling suggested. Age-related and posttraumatic arthritic changes. No obvious acute fracture or dislocation. <Electronically signed by Kurt Bynum > 07/09/20 [id number]
--- NOTE | 2020-07-09 11:35 | REP ---
INDICATION: F/U AFTER SURGERY. COMPARISON: 02/04/2020 TECHNIQUE: AP, lateral, oblique views of the left ankle. FINDINGS: Evidence for satisfactory reduction and fixation for the previously noted distal fibular shaft fracture. Age-related and posttraumatic arthritic changes are appreciated. No acute fracture or dislocation identified. Ankle swelling noted without subcutaneous emphysema. IMPRESSION: Age-related and posttraumatic arthritic changes. Satisfactory fixation for distal fibular fracture. Ankle swelling suggested without subcutaneous emphysema. <Electronically signed by Kurt Bynum > 07/09/20 [id number]
== END ==
LOC: M SOG 11:06
PROVIDERS: ATTEND Orthopaedic Surgery Sports Medicine
DX: Z47.89 Encounter for other orthopedic aftercare (principal)

== ENCOUNTER 2020-08-06 06:56 | Outpatient (CLI) | payer MEDICARE, OTHER ==
[~2020-08-06] VITALS: Ht 167.6 cm; Wt 110.9 kg
[2020-08-06] MEDS ORDERED: IMMUNE GLOBULIN 10% 20 GM in IV 1 EA IV ONE (07:00)
[2020-08-06] MEDS ORDERED: IMMUNE GLOBULIN 10% 40 GM in IV 1 EA IV ONE (07:00)
[2020-08-06] MEDS ORDERED: IMMUNE GLOBULIN 10% 5 GM in IV 1 EA IV ONE (07:00)
[2020-08-06] MEDS ORDERED: IMMUNE GLOBULIN 10% 10 GM in IV 1 EA IV ONE (07:00)
[2020-08-06] MEDS ORDERED: HYDROCORTISONE 100 MG/2 ML VIAL (J1720 PER 1) IV ONE (07:15)
[2020-08-06 07:20] VITALS: BP 140/65
[2020-08-06] MEDS ORDERED: SODIUM CHLORIDE 0.9% INJ 10 ML SYR IV PRN (07:35)
[2020-08-06 08:14] VITALS: BP 136/63
[2020-08-06 08:44] VITALS: BP 113/52
[2020-08-06] MEDS ORDERED: SODIUM CHLORIDE 0.9% INJ 10 ML SYR IV SCH (09:00)
[2020-08-06 09:15] VITALS: BP 122/60
[2020-08-06 11:20] VITALS: BP 118/58
[2020-08-06 11:56] VITALS: BP 134/52
== END 2020-08-06 12:00 | disposition home or self-care (01) ==
LOC: M INFU 06:56
PROVIDERS: ATTEND Nurse Practitioner
DX: G61.81 Chronic inflammatory demyelinating polyneuritis (principal); Z88.8 Allergy status to other drugs, medicaments and biological substances
CPT/HCPCS: 96365; 96366; 96375; J1459; J1642; J1720

== ENCOUNTER 2020-10-01 07:07 | Outpatient (CLI) | payer MEDICARE, OTHER ==
[~2020-10-01] VITALS: Ht 167.6 cm; Wt 110.9 kg
[~2020-10-01 07:07] MED LIST changes: +HYDROCORTISONE 100 MG/2 ML VIAL (J1720 PER 1) IV ONE; +IMMUNE GLOBULIN 10% 10 GM in IV 1 EA IV ONE; +IMMUNE GLOBULIN 10% 20 GM in IV 1 EA IV ONE; +IMMUNE GLOBULIN 10% 40 GM in IV 1 EA IV ONE; +IMMUNE GLOBULIN 10% 5 GM in IV 1 EA IV ONE
[2020-10-01] MEDS ORDERED: SODIUM CHLORIDE 0.9% INJ 10 ML SYR IV PRN (07:15)
[2020-10-01 07:30] VITALS: BP 151/66
[2020-10-01 08:00] VITALS: BP 151/67
[2020-10-01 08:30] VITALS: BP 158/77
[2020-10-01 09:00] VITALS: BP 137/63
[2020-10-01] MEDS ORDERED: SODIUM CHLORIDE 0.9% INJ 10 ML SYR IV SCH (09:00)
[2020-10-01 11:40] VITALS: BP 140/66
== END 2020-10-01 11:40 | disposition home or self-care (01) ==
LOC: M INFU 07:07
PROVIDERS: ATTEND Nurse Practitioner
DX: G61.81 Chronic inflammatory demyelinating polyneuritis (principal); Z88.8 Allergy status to other drugs, medicaments and biological substances
CPT/HCPCS: 96365; 96366; 96375; 96523; J1459; J1642; J1720

== ENCOUNTER 2020-11-26 07:11 | Outpatient (CLI) | payer MEDICARE, OTHER ==
[~2020-11-26] VITALS: Ht 167.6 cm; Wt 125.0 kg
[2020-11-26 07:20] VITALS: BP 176/79
[2020-11-26 09:00] VITALS: BP 134/64
[2020-11-26 09:30] VITALS: BP 145/72
[2020-11-26 10:00] VITALS: BP 141/67
[2020-11-26] MEDS ORDERED: SODIUM CHLORIDE 0.9% INJ 10 ML SYR IV PRN (12:05)
[2020-11-26 12:15] VITALS: BP 171/74
[2020-11-27] MEDS ORDERED: SODIUM CHLORIDE 0.9% INJ 10 ML SYR IV SCH (09:00)
== END 2020-11-26 12:15 | disposition home or self-care (01) ==
LOC: M INFU 07:11
PROVIDERS: ATTEND Nurse Practitioner
DX: G61.81 Chronic inflammatory demyelinating polyneuritis (principal); Z88.8 Allergy status to other drugs, medicaments and biological substances
CPT/HCPCS: 96365; 96366; 96375; 96523; J1459; J1642; J1720

== ENCOUNTER 2021-01-21 07:28 | Outpatient (CLI) | payer MEDICARE, OTHER ==
[2021-01-21] VITALS (7 sets, daily range): BP systolic 117–143; BP diastolic 56–74
[~2021-01-21] VITALS: Ht 167.6 cm; Wt 125.0 kg
[~2021-01-21 07:28] MED LIST changes: -CYMB60CA3 PO; +CYMB60CA4 PO; +OMEP-173 PO; -OMEP-218 PO
[2021-01-21] MEDS ORDERED: SODIUM CHLORIDE 0.9% INJ 10 ML SYR IV SCH (09:00)
[2021-01-21] MEDS ORDERED: SODIUM CHLORIDE 0.9% INJ 10 ML SYR IV PRN (14:30)
== END 2021-01-21 11:45 | disposition home or self-care (01) ==
LOC: M INFU 07:28
PROVIDERS: ATTEND Nurse Practitioner
DX: G61.81 Chronic inflammatory demyelinating polyneuritis (principal); Z88.8 Allergy status to other drugs, medicaments and biological substances
CPT/HCPCS: 96365; 96366; 96375; J1459; J1720

== ENCOUNTER → 2021-02-21 | Outpatient (CLI) | payer MEDICARE, OTHER ==
[~2021-02-21] MED LIST changes: +CYMB60CA3 PO; -CYMB60CA4 PO; -HYDROCORTISONE 100 MG/2 ML VIAL (J1720 PER 1) IV ONE; -IMMUNE GLOBULIN 10% 10 GM in IV 1 EA IV ONE; -IMMUNE GLOBULIN 10% 20 GM in IV 1 EA IV ONE; -IMMUNE GLOBULIN 10% 40 GM in IV 1 EA IV ONE; -IMMUNE GLOBULIN 10% 5 GM in IV 1 EA IV ONE; -OMEP-173 PO; +OMEP-218 PO
--- NOTE | 2021-02-21 12:11 | REP ---
INDICATION: LT ANKLE FX. COMPARISON: 07/09/2020. TECHNIQUE: Four views left ankle. FINDINGS: Metallic plate and multiple screws are seen in the distal fibula. Two screws extend into the distal tibia. Alignment is unchanged. Distal fibular fracture appears to be healed. There is mild widening of the medial mortise and mild narrowing of the tibiotalar joint space, unchanged. Small calcification is again seen distal to the medial malleolus. There is soft tissue swelling. There is inferior calcaneal spurring. IMPRESSION: No significant change. <Electronically signed by Tj Acharya > 02/21/21 [id number]
== END ==
LOC: M SOG 09:38
PROVIDERS: ATTEND Orthopaedic Surgery Sports Medicine
DX: S82.62XD Displaced fracture of lateral malleolus of left fibula, subsequent encounter for closed fracture with routine healing (principal); X58.XXXD Exposure to other specified factors, subsequent encounter; Y92.89 Other specified places as the place of occurrence of the external cause

== ENCOUNTER 2021-03-18 06:58 | Outpatient (CLI) | payer MEDICARE, OTHER ==
[~2021-03-18] VITALS: Ht 167.6 cm; Wt 125.0 kg
[2021-03-18] VITALS (7 sets, daily range): BP systolic 127–153; BP diastolic 56–74
[~2021-03-18 06:58] MED LIST changes: -CYMB60CA3 PO; +CYMB60CA4 PO
[2021-03-18] MEDS ORDERED: IMMUNE GLOBULIN 10% 40 GM in IV 1 EA IV ONE (07:00)
[2021-03-18] MEDS ORDERED: IMMUNE GLOBULIN 10% 10 GM in IV 1 EA IV ONE (07:00)
[2021-03-18] MEDS ORDERED: IMMUNE GLOBULIN 10% 5 GM in IV 1 EA IV ONE (07:00)
[2021-03-18] MEDS ORDERED: IMMUNE GLOBULIN 10% 20 GM in IV 1 EA IV ONE (07:00)
[2021-03-18] MEDS ORDERED: HYDROCORTISONE 100 MG/2 ML VIAL (J1720 PER 1) IV ONE (07:00)
[2021-03-18] MEDS ORDERED: SODIUM CHLORIDE 0.9% INJ 10 ML SYR IV SCH (09:00)
== END 2021-03-18 11:40 | disposition home or self-care (01) ==
LOC: M INFU 06:58
PROVIDERS: ATTEND Nurse Practitioner
DX: G61.81 Chronic inflammatory demyelinating polyneuritis (principal); Z88.6 Allergy status to analgesic agent
CPT/HCPCS: 96365; 96366; 96375; J1459; J1642; J1720

== ENCOUNTER 2021-05-13 07:02 | Outpatient (CLI) | payer MEDICARE, OTHER ==
[~2021-05-13] VITALS: Ht 167.6 cm; Wt 125.0 kg
[~2021-05-13 07:02] MED LIST changes: +ACETAMINOPHEN TAB 650MG DOSE (2X325MG) PO SCH; +IMMUNE GLOBULIN 10% 10 GM in IV 1 EA IV ONE; +IMMUNE GLOBULIN 10% 20 GM in IV 1 EA IV ONE; +IMMUNE GLOBULIN 10% 40 GM in IV 1 EA IV ONE; +IMMUNE GLOBULIN 10% 5 GM in IV 1 EA IV ONE; +SODIUM CHLORIDE 0.9% INJ 10 ML SYR IV SCH; +diphenhydrAMINE 25MG CAP PO SCH
[2021-05-13 08:14] VITALS: BP 122/57
[2021-05-13] MEDS ORDERED: HYDROCORTISONE 100 MG/2 ML VIAL (J1720 PER 1) IV ONE (10:20)
[2021-05-13 10:50] VITALS: BP 130/64
[2021-05-13 11:20] VITALS: BP 156/74
[2021-05-13 11:50] VITALS: BP 156/74
[2021-05-13 12:50] VITALS: BP 160/73
[2021-05-13 13:50] VITALS: BP 135/76
== END 2021-05-13 15:10 | disposition home or self-care (01) ==
LOC: M INFU 07:02
PROVIDERS: ATTEND Nurse Practitioner
DX: G61.81 Chronic inflammatory demyelinating polyneuritis (principal); Z88.6 Allergy status to analgesic agent
CPT/HCPCS: 96365; 96366; 96367; J1459; J1642; J1720

== ENCOUNTER → 2021-06-03 | Outpatient (REF) ==
[~2021-06-03] MED LIST changes: -ACETAMINOPHEN TAB 650MG DOSE (2X325MG) PO SCH; -IMMUNE GLOBULIN 10% 10 GM in IV 1 EA IV ONE; -IMMUNE GLOBULIN 10% 20 GM in IV 1 EA IV ONE; -IMMUNE GLOBULIN 10% 40 GM in IV 1 EA IV ONE; -IMMUNE GLOBULIN 10% 5 GM in IV 1 EA IV ONE; +OMEP-173 PO; -OMEP-218 PO; -SODIUM CHLORIDE 0.9% INJ 10 ML SYR IV SCH; -diphenhydrAMINE 25MG CAP PO SCH
== END ==
LOC: M LAB REF 10:56
PROVIDERS: ATTEND Registered Nurse
DX: Z00.00 Encounter for general adult medical examination without abnormal findings (principal)

== ENCOUNTER 2021-07-08 07:41 | Outpatient (CLI) | payer MEDICARE, OTHER ==
[~2021-07-08] VITALS: Ht 167.6 cm; Wt 127.0 kg
[2021-07-08] VITALS (7 sets, daily range): BP systolic 127–167; BP diastolic 54–78
[~2021-07-08 07:41] MED LIST changes: +ACETAMINOPHEN TAB 650MG DOSE (2X325MG) PO ONE; +HYDROCORTISONE 100 MG/2 ML VIAL (J1720 PER 1) IV ONE; +IMMUNE GLOBULIN 10% 10 GM in IV 1 EA IV ONE; +IMMUNE GLOBULIN 10% 20 GM in IV 1 EA IV ONE; +IMMUNE GLOBULIN 10% 40 GM in IV 1 EA IV ONE; +IMMUNE GLOBULIN 10% 5 GM in IV 1 EA IV ONE; +SODIUM CHLORIDE 0.9% INJ 10 ML SYR IV PRN; +diphenhydrAMINE 25MG CAP PO ONE
== END 2021-07-08 12:20 | disposition home or self-care (01) ==
LOC: M INFU 07:41
PROVIDERS: ATTEND Nurse Practitioner
DX: G61.81 Chronic inflammatory demyelinating polyneuritis (principal); Z88.8 Allergy status to other drugs, medicaments and biological substances
CPT/HCPCS: 96365; 96366; 96375; J1459; J1642; J1720

== ENCOUNTER 2021-09-02 07:12 | Outpatient (CLI) | payer MEDICARE, OTHER ==
[2021-09-02] VITALS (7 sets, daily range): BP systolic 115–142; BP diastolic 56–72
[~2021-09-02] VITALS: Ht 167.6 cm; Wt 129.5 kg
[~2021-09-02 07:12] MED LIST changes: -ACETAMINOPHEN TAB 650MG DOSE (2X325MG) PO ONE; -HYDROCORTISONE 100 MG/2 ML VIAL (J1720 PER 1) IV ONE; -IMMUNE GLOBULIN 10% 10 GM in IV 1 EA IV ONE; -IMMUNE GLOBULIN 10% 20 GM in IV 1 EA IV ONE; -IMMUNE GLOBULIN 10% 40 GM in IV 1 EA IV ONE; -IMMUNE GLOBULIN 10% 5 GM in IV 1 EA IV ONE; -SODIUM CHLORIDE 0.9% INJ 10 ML SYR IV PRN; -diphenhydrAMINE 25MG CAP PO ONE
[2021-09-02] MEDS ORDERED: IMMUNE GLOBULIN 10% 5 GM in IV 1 EA IV ONE (07:30)
[2021-09-02] MEDS ORDERED: diphenhydrAMINE 25MG CAP PO ONE (07:30)
[2021-09-02] MEDS ORDERED: ACETAMINOPHEN TAB 650MG DOSE (2X325MG) PO ONE (07:30)
[2021-09-02] MEDS ORDERED: IMMUNE GLOBULIN 10% 10 GM in IV 1 EA IV ONE (07:30)
[2021-09-02] MEDS ORDERED: SODIUM CHLORIDE 0.9% INJ 10 ML SYR IV PRN (07:30)
[2021-09-02] MEDS ORDERED: IMMUNE GLOBULIN 10% 40 GM in IV 1 EA IV ONE (07:30)
[2021-09-02] MEDS ORDERED: HYDROCORTISONE 100 MG/2 ML VIAL (J1720 PER 1) IV ONE (07:30)
[2021-09-02] MEDS ORDERED: IMMUNE GLOBULIN 10% 20 GM in IV 1 EA IV ONE (07:30)
== END 2021-09-02 12:00 | disposition home or self-care (01) ==
LOC: M INFU 07:12
PROVIDERS: ATTEND Nurse Practitioner
DX: G61.81 Chronic inflammatory demyelinating polyneuritis (principal); Z88.8 Allergy status to other drugs, medicaments and biological substances
CPT/HCPCS: 96365; 96366; 96375; J1459; J1642; J1720

== ENCOUNTER 2021-10-28 07:05 | Outpatient (CLI) | payer MEDICARE, OTHER ==
[~2021-10-28] VITALS: Ht 167.6 cm; Wt 129.5 kg
[~2021-10-28 07:05] MED LIST changes: +UNRESOLVED CLARIFICATION ENTRY XX SCH
[2021-10-28 07:11] VITALS: BP 132/61
[2021-10-28] MEDS ORDERED: ACETAMINOPHEN TAB 650MG DOSE (2X325MG) PO ONE (07:30)
[2021-10-28] MEDS ORDERED: IMMUNE GLOBULIN 10% 10 GM in IV 1 EA IV ONE (07:30)
[2021-10-28] MEDS ORDERED: HYDROCORTISONE 100 MG/2 ML VIAL (J1720 PER 1) IV ONE (07:30)
[2021-10-28] MEDS ORDERED: SODIUM CHLORIDE 0.9% INJ 10 ML SYR IV PRN (07:30)
[2021-10-28] MEDS ORDERED: IMMUNE GLOBULIN 10% 20 GM in IV 1 EA IV ONE (07:30)
[2021-10-28] MEDS ORDERED: IMMUNE GLOBULIN 10% 5 GM in IV 1 EA IV ONE (07:30)
[2021-10-28] MEDS ORDERED: IMMUNE GLOBULIN 10% 40 GM in IV 1 EA IV ONE (07:30)
[2021-10-28 08:00] VITALS: BP 126/64
[2021-10-28 08:30] VITALS: BP 144/69
[2021-10-28 09:00] VITALS: BP 138/63
[2021-10-28 10:30] VITALS: BP 142/70
[2021-10-28 11:10] VITALS: BP 159/70
== END 2021-10-28 11:30 | disposition home or self-care (01) ==
LOC: M INFU 07:05
PROVIDERS: ATTEND Nurse Practitioner
DX: G61.81 Chronic inflammatory demyelinating polyneuritis (principal); Z88.6 Allergy status to analgesic agent
CPT/HCPCS: 96365; 96366; J1459; J1642; J1720

== ENCOUNTER 2021-12-23 07:05 | Outpatient (CLI) | payer MEDICARE, OTHER ==
[~2021-12-23] VITALS: Ht 167.6 cm; Wt 129.5 kg
[~2021-12-23 07:05] MED LIST changes: +IMMUNE GLOBULIN 10% 40 GM in IV 1 EA IV ONE; -UNRESOLVED CLARIFICATION ENTRY XX SCH
[2021-12-23 07:28] VITALS: BP 130/61
[2021-12-23] MEDS ORDERED: ACETAMINOPHEN TAB 650MG DOSE (2X325MG) PO ONE (07:30)
[2021-12-23] MEDS ORDERED: IMMUNE GLOBULIN 10% 10 GM in IV 1 EA IV ONE (07:30)
[2021-12-23] MEDS ORDERED: SODIUM CHLORIDE 0.9% INJ 10 ML SYR IV PRN (07:30)
[2021-12-23] MEDS ORDERED: HYDROCORTISONE 100 MG/2 ML VIAL (J1720 PER 1) IV ONE (07:30)
[2021-12-23] MEDS ORDERED: IMMUNE GLOBULIN 10% 20 GM in IV 1 EA IV ONE (07:30)
[2021-12-23] MEDS ORDERED: IMMUNE GLOBULIN 10% 40 GM in IV 1 EA IV ONE (07:30)
[2021-12-23] MEDS ORDERED: IMMUNE GLOBULIN 10% 5 GM in IV 1 EA IV ONE (07:30)
[2021-12-23 08:12] VITALS: BP 132/63
[2021-12-23 08:41] VITALS: BP 136/62
[2021-12-23 09:16] VITALS: BP 133/62
[2021-12-23 10:46] VITALS: BP 137/62
[2021-12-23 11:25] VITALS: BP 136/67
== END 2021-12-23 11:25 | disposition home or self-care (01) ==
LOC: M INFU 07:05
PROVIDERS: ATTEND Nurse Practitioner
DX: G61.81 Chronic inflammatory demyelinating polyneuritis (principal); Z88.8 Allergy status to other drugs, medicaments and biological substances
CPT/HCPCS: 96365; 96366; J1459; J1642; J1720

== ENCOUNTER 2022-02-17 07:00 | Outpatient (CLI) | payer MEDICARE, OTHER ==
[2022-02-17] VITALS (8 sets, daily range): BP systolic 133–160; BP diastolic 64–94
[~2022-02-17] VITALS: Ht 167.6 cm; Wt 129.0 kg
[~2022-02-17 07:00] MED LIST changes: -IMMUNE GLOBULIN 10% 40 GM in IV 1 EA IV ONE
[2022-02-17] MEDS ORDERED: IMMUNE GLOBULIN 10% 10 GM in IV 1 EA IV ONE (07:30)
[2022-02-17] MEDS ORDERED: IMMUNE GLOBULIN 10% 20 GM in IV 1 EA IV ONE (07:30)
[2022-02-17] MEDS ORDERED: HYDROCORTISONE 100 MG/2 ML VIAL (J1720 PER 1) IV ONE (07:30)
[2022-02-17] MEDS ORDERED: ACETAMINOPHEN TAB 650MG DOSE (2X325MG) PO ONE (07:30)
[2022-02-17] MEDS ORDERED: IMMUNE GLOBULIN 10% 5 GM in IV 1 EA IV ONE (07:30)
[2022-02-17] MEDS ORDERED: IMMUNE GLOBULIN 10% 40 GM in IV 1 EA IV ONE (07:30)
[2022-02-17] MEDS ORDERED: SODIUM CHLORIDE 0.9% INJ 10 ML SYR IV PRN (08:00)
[2022-02-17] MEDS ORDERED: SODIUM CHLORIDE 0.9% INJ 10 ML SYR IV SCH (09:00)
== END 2022-02-17 13:20 | disposition home or self-care (01) ==
LOC: M INFU 07:00
PROVIDERS: ATTEND Nurse Practitioner
DX: G61.81 Chronic inflammatory demyelinating polyneuritis (principal); Z88.8 Allergy status to other drugs, medicaments and biological substances
CPT/HCPCS: 96365; 96366; 96375; J1459; J1642; J1720

== ENCOUNTER 2022-04-14 07:25 | Outpatient (CLI) | payer MEDICARE, OTHER ==
[~2022-04-14] VITALS: Ht 167.6 cm; Wt 129.5 kg
[2022-04-14 07:25] VITALS: BP 143/67
[~2022-04-14 07:25] MED LIST changes: +CLOP75TA99 PO; -PLAV1TAB2 PO; +SODIUM CHLORIDE 0.9% INJ 10 ML SYR IV PRN
[2022-04-14] MEDS ORDERED: IMMUNE GLOBULIN 10% 10 GM in IV 1 EA IV ONE (07:30)
[2022-04-14] MEDS ORDERED: IMMUNE GLOBULIN 10% 40 GM in IV 1 EA IV ONE (07:30)
[2022-04-14] MEDS ORDERED: IMMUNE GLOBULIN 10% 5 GM in IV 1 EA IV ONE (07:30)
[2022-04-14] MEDS ORDERED: IMMUNE GLOBULIN 10% 20 GM in IV 1 EA IV ONE (07:30)
[2022-04-14 08:30] VITALS: BP 142/65
[2022-04-14 09:00] VITALS: BP 124/59
[2022-04-14 09:30] VITALS: BP 115/56
[2022-04-14 10:30] VITALS: BP 127/75
[2022-04-14 11:50] VITALS: BP 144/78
[2022-04-14] MEDS ORDERED: ACETAMINOPHEN TAB 650MG DOSE (2X325MG) PO ONE (12:45)
[2022-04-14] MEDS ORDERED: HYDROCORTISONE 100 MG/2 ML VIAL (J1720 PER 1) IV ONE (12:45)
== END 2022-04-14 11:50 | disposition home or self-care (01) ==
LOC: M INFU 07:25
PROVIDERS: ATTEND Nurse Practitioner
DX: G61.81 Chronic inflammatory demyelinating polyneuritis (principal)
CPT/HCPCS: 96365; 96366; J1459; J1642

== ENCOUNTER 2022-06-09 06:55 | Outpatient (CLI) | payer MEDICARE, OTHER ==
[~2022-06-09] VITALS: Ht 167.6 cm; Wt 130.0 kg
[2022-06-09 06:55] VITALS: BP 143/68
[~2022-06-09 06:55] MED LIST changes: -SODIUM CHLORIDE 0.9% INJ 10 ML SYR IV PRN
[2022-06-09] MEDS ORDERED: ACETAMINOPHEN TAB 650MG DOSE (2X325MG) PO ONE (07:30)
[2022-06-09] MEDS ORDERED: IMMUNE GLOBULIN 10% 20 GM in IV 1 EA IV ONE (07:30)
[2022-06-09] MEDS ORDERED: HYDROCORTISONE 100MG/2ML VIAL IV ONE (07:30)
[2022-06-09] MEDS ORDERED: IMMUNE GLOBULIN 10% 10 GM in IV 1 EA IV ONE (07:30)
[2022-06-09] MEDS ORDERED: IMMUNE GLOBULIN 10% 40 GM in IV 1 EA IV ONE (07:30)
[2022-06-09] MEDS ORDERED: IMMUNE GLOBULIN 10% 5 GM in IV 1 EA IV ONE (07:30)
[2022-06-09] MEDS ORDERED: SODIUM CHLORIDE 0.9% INJ 10 ML SYR IV PRN (07:30)
[2022-06-09 08:45] VITALS: BP 128/63
[2022-06-09 09:15] VITALS: BP 141/60
[2022-06-09 10:15] VITALS: BP 140/67
[2022-06-09 11:25] VITALS: BP 161/72
== END 2022-06-09 11:25 | disposition home or self-care (01) ==
LOC: M INFU 06:55
PROVIDERS: ATTEND Nurse Practitioner
DX: G61.81 Chronic inflammatory demyelinating polyneuritis (principal); Z88.6 Allergy status to analgesic agent
CPT/HCPCS: 96365; 96366; 96367; J1459; J1642; J1720

== ENCOUNTER 2022-08-04 07:13 | Outpatient (CLI) | payer MEDICARE, OTHER ==
[~2022-08-04] VITALS: Ht 167.6 cm; Wt 125.0 kg
[~2022-08-04 07:13] MED LIST changes: +SODIUM CHLORIDE 0.9% INJ 10 ML SYR IV PRN
[2022-08-04 07:30] VITALS: BP 127/62
[2022-08-04] MEDS ORDERED: IMMUNE GLOBULIN 10% 20 GM in IV 1 EA IV ONE (07:30)
[2022-08-04] MEDS ORDERED: IMMUNE GLOBULIN 10% 10 GM in IV 1 EA IV ONE (07:30)
[2022-08-04] MEDS ORDERED: HYDROCORTISONE 100MG/2ML VIAL IV ONE (07:30)
[2022-08-04] MEDS ORDERED: IMMUNE GLOBULIN 10% 5 GM in IV 1 EA IV ONE (07:30)
[2022-08-04] MEDS ORDERED: ACETAMINOPHEN TAB 650MG DOSE (2X325MG) PO ONE (07:30)
[2022-08-04] MEDS ORDERED: IMMUNE GLOBULIN 10% 40 GM in IV 1 EA IV ONE (07:30)
[2022-08-04 08:00] VITALS: BP 116/57
[2022-08-04] MEDS ORDERED: SODIUM CHLORIDE 0.9% INJ 10 ML SYR IV SCH (09:00)
[2022-08-04 09:45] VITALS: BP 145/72
[2022-08-04 11:45] VITALS: BP 168/79
== END 2022-08-04 11:45 | disposition home or self-care (01) ==
LOC: M INFU 07:13
PROVIDERS: ATTEND Nurse Practitioner
DX: G61.81 Chronic inflammatory demyelinating polyneuritis (principal); Z88.8 Allergy status to other drugs, medicaments and biological substances
CPT/HCPCS: 96365; 96366; 96375; J1459; J1720

== ENCOUNTER 2022-10-04 07:15 | Outpatient (CLI) | payer MEDICARE, OTHER ==
[~2022-10-04] VITALS: Ht 167.6 cm; Wt 125.0 kg
[2022-10-04 07:15] VITALS: BP 143/67
[~2022-10-04 07:15] MED LIST changes: -SODIUM CHLORIDE 0.9% INJ 10 ML SYR IV PRN
[2022-10-04] MEDS ORDERED: IMMUNE GLOBULIN 10% 10 GM in IV 1 EA IV ONE (08:00)
[2022-10-04] MEDS ORDERED: IMMUNE GLOBULIN 10% 5 GM in IV 1 EA IV ONE (08:00)
[2022-10-04] MEDS ORDERED: SODIUM CHLORIDE 0.9% INJ 10 ML SYR IV PRN (08:00)
[2022-10-04] MEDS ORDERED: HYDROCORTISONE 100MG/2ML VIAL IV ONE (08:00)
[2022-10-04] MEDS ORDERED: IMMUNE GLOBULIN 10% 40 GM in IV 1 EA IV ONE (08:00)
[2022-10-04] MEDS ORDERED: IMMUNE GLOBULIN 10% 20 GM in IV 1 EA IV ONE (08:00)
[2022-10-04] MEDS ORDERED: ACETAMINOPHEN TAB 650MG DOSE (2X325MG) PO ONE (08:00)
[2022-10-04 08:30] VITALS: BP 136/69
[2022-10-04 09:00] VITALS: BP 133/63
[2022-10-04] MEDS ORDERED: SODIUM CHLORIDE 0.9% INJ 10 ML SYR IV SCH (09:00)
[2022-10-04 10:00] VITALS: BP 136/69
[2022-10-04 11:20] VITALS: BP 141/63
== END 2022-10-04 11:20 ==
LOC: M INFU 07:15
PROVIDERS: ATTEND Nurse Practitioner
DX: G61.81 Chronic inflammatory demyelinating polyneuritis (principal); Z88.6 Allergy status to analgesic agent
CPT/HCPCS: 96365; 96366; J1459; J1720

== ENCOUNTER 2022-12-08 07:00 | Outpatient (CLI) | payer MEDICARE, OTHER ==
[~2022-12-08] VITALS: Ht 167.6 cm; Wt 119.6 kg
[2022-12-08] VITALS (7 sets, daily range): BP systolic 107–127; BP diastolic 53–76; O2SAT 96–99
[2022-12-08] MEDS ORDERED: IMMUNE GLOBULIN 10% 20 GM in IV 1 EA IV ONE (07:30)
[2022-12-08] MEDS ORDERED: IMMUNE GLOBULIN 10% 40 GM in IV 1 EA IV ONE (07:30)
[2022-12-08] MEDS ORDERED: IMMUNE GLOBULIN 10% 10 GM in IV 1 EA IV ONE (07:30)
[2022-12-08] MEDS ORDERED: IMMUNE GLOBULIN 10% 5 GM in IV 1 EA IV ONE (07:30)
[2022-12-08] MEDS ORDERED: SODIUM CHLORIDE 0.9% INJ 10 ML SYR IV PRN (08:05)
[2022-12-08] MEDS ORDERED: HYDROCORTISONE 100MG/2ML VIAL IV ONE (08:05)
[2022-12-08] MEDS ORDERED: ACETAMINOPHEN TAB 650MG DOSE (2X325MG) PO ONE (08:05)
[2022-12-08] MEDS ORDERED: SODIUM CHLORIDE 0.9% INJ 10 ML SYR IV SCH (09:00)
== END 2022-12-08 12:15 | disposition home or self-care (01) ==
LOC: M INFU 07:00
PROVIDERS: ATTEND Nurse Practitioner
DX: G61.81 Chronic inflammatory demyelinating polyneuritis (principal); Z88.8 Allergy status to other drugs, medicaments and biological substances
CPT/HCPCS: 96365; 96366; 96375; J1459; J1720

== ENCOUNTER 2023-02-16 07:20 | Outpatient (CLI) | payer MEDICARE, OTHER ==
[~2023-02-16] VITALS: Ht 167.6 cm; Wt 114.0 kg
[~2023-02-16 07:20] MED LIST changes: -OXYB5TAB10 PO; +OXYB5TAB11 PO; -PREG75CA2 PO; +PREG75CA3 PO
[2023-02-16 07:35] VITALS: BP 142/78; O2SAT 98
[2023-02-16] MEDS ORDERED: HYDROCORTISONE 100MG/2ML VIAL IV ONE (08:00)
[2023-02-16] MEDS ORDERED: IMMUNE GLOBULIN 10% 5 GM in IV 1 EA IV ONE (08:00)
[2023-02-16] MEDS ORDERED: IMMUNE GLOBULIN 10% 10 GM in IV 1 EA IV ONE (08:00)
[2023-02-16] MEDS ORDERED: IMMUNE GLOBULIN 10% 40 GM in IV 1 EA IV ONE (08:00)
[2023-02-16] MEDS ORDERED: IMMUNE GLOBULIN 10% 20 GM in IV 1 EA IV ONE (08:00)
[2023-02-16] MEDS ORDERED: ACETAMINOPHEN TAB 650MG DOSE (2X325MG) PO ONE (08:00)
[2023-02-16 09:00] VITALS: BP 118/64; O2SAT 98
[2023-02-16] MEDS ORDERED: SODIUM CHLORIDE 0.9% INJ 10 ML SYR IV SCH (09:00)
[2023-02-16 09:30] VITALS: BP 125/60; O2SAT 98
[2023-02-16 10:00] VITALS: BP 93/48; O2SAT 96
[2023-02-16 12:45] VITALS: BP 131/66; O2SAT 95
== END 2023-02-16 12:50 | disposition home or self-care (01) ==
LOC: M INFU 07:20
PROVIDERS: ATTEND Nurse Practitioner
DX: G61.81 Chronic inflammatory demyelinating polyneuritis (principal); Z88.8 Allergy status to other drugs, medicaments and biological substances
CPT/HCPCS: 96365; 96366; 96375; J1459; J1720

== ENCOUNTER 2023-03-13 06:10 | Day surgery (SDC) | payer MEDICARE, OTHER ==
[~2023-03-13] VITALS: Ht 167.6 cm; Wt 113.4 kg
[~2023-03-13 06:10] MED LIST changes: +CYCLOPENTOLATE 1% OPHTH SOLN 2ML BTL OD SCH; +OFLOXACIN 0.3 % (OCUFLOX) OPTH SOL 5ML OD SCH; +PHENYLEPHRINE 2.5% OPHTH SOL 2ML OD SCH; +PROPARACAINE 0.5% OPHTH SOL 15ML OD ONE; +TROPICAMIDE 1% OPHTH SOLN 15ML OD SCH
[2023-03-13] MEDS ORDERED: CEFUROXIME 1MG/0.1ML INTRACAMERAL INJ As Ordered ONE (06:31)
[2023-03-13] MEDS ORDERED: LIDOCAINE 1% SDV 5ML VIAL As Ordered ONE (06:31)
[2023-03-13] MEDS ORDERED: BSS IRR 500ML/OMIDRIA 4ML IRR BAG (OR ONLY) As Ordered ONE (06:32)
[2023-03-13] MEDS ORDERED: LANTINJ4 SQ (06:56)
[2023-03-13] MEDS ORDERED: DULA3PEN SQ (06:56)
[2023-03-13] MEDS ORDERED: MIDAZOLAM INJ 2MG/2ML VIAL As Ordered ONE (07:18)
[2023-03-13] MEDS ORDERED: EPINEPHrine 1MG/ML INJ 30ML MD-VIAL As Ordered ONE (07:25)
[2023-03-13] MEDS ORDERED: EPINEPHrine INJ 1 MG/ML 1ML AMP As Ordered ONE (07:30)
[2023-03-13] MEDS ORDERED: TOBRADEX OPHTH OINT 3.5 GM As Ordered ONE (07:54)
[2023-03-13 09:15] VITALS: BP 128/64; TEMP 97.3; O2SAT 98
== END 2023-03-13 09:36 | disposition home or self-care (01) ==
LOC: M SDC 06:10
PROVIDERS: ATTEND Ophthalmology
DX: H25.11 Age-related nuclear cataract, right eye (principal); E11.9 Type 2 diabetes mellitus without complications; I10 Essential (primary) hypertension; F32.A Depression, unspecified; Z92.21 Personal history of antineoplastic chemotherapy; Z88.8 Allergy status to other drugs, medicaments and biological substances; Z79.899 Other long term (current) drug therapy; Z79.02 Long term (current) use of antithrombotics/antiplatelets; Z79.82 Long term (current) use of aspirin; Z79.4 Long term (current) use of insulin; Z79.84 Long term (current) use of oral hypoglycemic drugs
CPT/HCPCS: 66984; J0171; J0697; J1097; J2250; V2632

== ENCOUNTER 2023-04-03 06:26 | Day surgery (SDC) | payer MEDICARE, OTHER ==
[~2023-04-03] VITALS: Ht 167.6 cm; Wt 115.9 kg
[~2023-04-03 06:26] MED LIST changes: -CYCLOPENTOLATE 1% OPHTH SOLN 2ML BTL OD SCH; +CYCLOPENTOLATE 1% OPHTH SOLN 2ML BTL OS SCH; +DULA3PEN SQ; +LANTINJ4 SQ; -OFLOXACIN 0.3 % (OCUFLOX) OPTH SOL 5ML OD SCH; +OFLOXACIN 0.3 % (OCUFLOX) OPTH SOL 5ML OS SCH; -PHENYLEPHRINE 2.5% OPHTH SOL 2ML OD SCH; +PHENYLEPHRINE 2.5% OPHTH SOL 2ML OS SCH; -PROPARACAINE 0.5% OPHTH SOL 15ML OD ONE; +PROPARACAINE 0.5% OPHTH SOL 15ML OS ONE; -TROPICAMIDE 1% OPHTH SOLN 15ML OD SCH; +TROPICAMIDE 1% OPHTH SOLN 15ML OS SCH
[2023-04-03] MEDS ORDERED: BSS IRR 500ML/OMIDRIA 4ML IRR BAG (OR ONLY) As Ordered ONE (06:42)
[2023-04-03] MEDS ORDERED: LIDOCAINE 1% SDV 5ML VIAL As Ordered ONE (06:43)
[2023-04-03] MEDS ORDERED: CEFUROXIME 1MG/0.1ML INTRACAMERAL INJ As Ordered ONE (06:43)
[2023-04-03] MEDS ORDERED: EPINEPHrine INJ 1 MG/ML 1ML AMP As Ordered ONE (07:25)
[2023-04-03] MEDS ORDERED: MIDAZOLAM INJ 2MG/2ML VIAL As Ordered ONE (07:26)
[2023-04-03] MEDS ORDERED: fentaNYL 100 MCG/2 ML INJECTION As Ordered ONE (07:26)
[2023-04-03 08:41] VITALS: BP 172/78; TEMP 97.5; O2SAT 96
== END 2023-04-03 08:42 | disposition home or self-care (01) ==
LOC: M SDC 06:26
PROVIDERS: ATTEND Ophthalmology
DX: H25.12 Age-related nuclear cataract, left eye (principal); E11.9 Type 2 diabetes mellitus without complications; I10 Essential (primary) hypertension; Z88.8 Allergy status to other drugs, medicaments and biological substances; Z79.899 Other long term (current) drug therapy; Z79.84 Long term (current) use of oral hypoglycemic drugs; Z79.85 Long-term (current) use of injectable non-insulin antidiabetic drugs
CPT/HCPCS: 66984; J0171; J0697; J1097; J2250; J3010; V2632

== ENCOUNTER 2023-04-27 07:05 | Outpatient (CLI) | payer MEDICARE, OTHER ==
[~2023-04-27] VITALS: Ht 167.6 cm; Wt 116.8 kg
[2023-04-27 07:05] VITALS: BP 139/64; O2SAT 100
[~2023-04-27 07:05] MED LIST changes: -CYCLOPENTOLATE 1% OPHTH SOLN 2ML BTL OS SCH; -OFLOXACIN 0.3 % (OCUFLOX) OPTH SOL 5ML OS SCH; -PHENYLEPHRINE 2.5% OPHTH SOL 2ML OS SCH; -PROPARACAINE 0.5% OPHTH SOL 15ML OS ONE; -TROPICAMIDE 1% OPHTH SOLN 15ML OS SCH
[2023-04-27] MEDS ORDERED: IMMUNE GLOBULIN 10% 5 GM in IV 1 EA IV ONE (07:20)
[2023-04-27] MEDS ORDERED: IMMUNE GLOBULIN 10% 10 GM in IV 1 EA IV ONE (07:25)
[2023-04-27] MEDS ORDERED: ACETAMINOPHEN TAB 650MG DOSE (2X325MG) PO ONE (07:25)
[2023-04-27] MEDS ORDERED: IMMUNE GLOBULIN 10% 40 GM in IV 1 EA IV ONE (07:25)
[2023-04-27] MEDS ORDERED: HYDROCORTISONE 100MG/2ML VIAL IV ONE (07:25)
[2023-04-27] MEDS ORDERED: IMMUNE GLOBULIN 10% 20 GM in IV 1 EA IV ONE (07:25)
[2023-04-27] MEDS ORDERED: SODIUM CHLORIDE 0.9% INJ 10 ML SYR IV PRN (07:45)
[2023-04-27 08:30] VITALS: BP 136/92; O2SAT 96
[2023-04-27 09:00] VITALS: BP 132/63; O2SAT 100
[2023-04-27] MEDS ORDERED: SODIUM CHLORIDE 0.9% INJ 10 ML SYR IV SCH (09:00)
[2023-04-27 12:05] VITALS: BP 137/63; O2SAT 95
== END 2023-04-27 12:05 | disposition home or self-care (01) ==
LOC: M INFU 07:05
PROVIDERS: ATTEND Nurse Practitioner
DX: G61.81 Chronic inflammatory demyelinating polyneuritis (principal); Z88.8 Allergy status to other drugs, medicaments and biological substances
CPT/HCPCS: 96365; 96366; 96375; J1459; J1720

== ENCOUNTER → 2023-07-06 | Outpatient (CLI) | payer MEDICARE, OTHER ==
[~2023-07-06] VITALS: Ht 165.1 cm; Wt 123.2 kg
[~2023-07-06] MED LIST changes: -OXYB5TAB11 PO; +OXYB5TAB14 PO
[2023-07-06 07:10] VITALS: BP 138/65; O2SAT 96
[2023-07-06] MEDS: ACETAMINOPHEN TAB 650MG DOSE (2X325MG) PO ONE (07:34)
[2023-07-06] MEDS: HYDROCORTISONE 100MG/2ML VIAL IV ONE (07:34)
[2023-07-06] MEDS: IMMUNE GLOBULIN 10% 40 GM in IV 1 EA IV ONE (07:46)
[2023-07-06] MEDS: IMMUNE GLOBULIN 10% 10 GM in IV 1 EA IV ONE (07:47)
[2023-07-06] MEDS: IMMUNE GLOBULIN 10% 5 GM in IV 1 EA IV ONE (07:48)
[2023-07-06] MEDS: IMMUNE GLOBULIN 10% 20 GM in IV 1 EA IV ONE (07:50)
[2023-07-06 08:14] VITALS: BP 138/60; O2SAT 100
[2023-07-06 08:45] VITALS: BP 124/58; O2SAT 100
[2023-07-06 09:15] VITALS: BP 137/63; O2SAT 100
[2023-07-06] MEDS: SODIUM CHLORIDE 0.9% INJ 10 ML SYR IV PRN (11:30)
[2023-07-06 11:38] VITALS: BP 146/64; O2SAT 97
== END ==
LOC: M INFU 07:05
PROVIDERS: ATTEND Nurse Practitioner
DX: G61.81 Chronic inflammatory demyelinating polyneuritis (principal); Z88.8 Allergy status to other drugs, medicaments and biological substances
CPT/HCPCS: 96365; 96366; 96375; J1459; J1720

== ENCOUNTER 2023-09-14 06:58 | Outpatient (CLI) | payer MEDICARE, OTHER ==
[~2023-09-14] VITALS: Ht 165.1 cm; Wt 129.0 kg
[2023-09-14 07:05] VITALS: BP 161/72; O2SAT 100
[2023-09-14] MEDS: IMMUNE GLOBULIN 10% 40 GM in IV 1 EA IV ONE (07:33)
[2023-09-14] MEDS: IMMUNE GLOBULIN 10% 5 GM in IV 1 EA IV ONE (07:37)
[2023-09-14] MEDS: IMMUNE GLOBULIN 10% 10 GM in IV 1 EA IV ONE (07:38)
[2023-09-14] MEDS: IMMUNE GLOBULIN 10% 20 GM in IV 1 EA IV ONE (07:39)
[2023-09-14 08:30] VITALS: BP 118/55; O2SAT 100
[2023-09-14 09:00] VITALS: BP 126/58; O2SAT 100
[2023-09-14 10:00] VITALS: BP 122/58; O2SAT 100
[2023-09-14 11:00] VITALS: BP 146/58; O2SAT 97
[2023-09-14 11:45] VITALS: BP 142/70; O2SAT 99
[2023-09-14] MEDS: SODIUM CHLORIDE 0.9% INJ 10 ML SYR IV SCH (11:50)
[2023-09-14] MEDS ORDERED: SODIUM CHLORIDE 0.9% INJ 10 ML SYR IV PRN (12:00)
== END 2023-09-14 11:55 | disposition home or self-care (01) ==
LOC: M INFU 06:58
PROVIDERS: ATTEND Nurse Practitioner
DX: G61.81 Chronic inflammatory demyelinating polyneuritis (principal); Z88.6 Allergy status to analgesic agent
CPT/HCPCS: 96365; 96366; J1459

== ENCOUNTER 2023-11-30 07:00 | Outpatient (CLI) | payer MEDICARE, OTHER ==
[~2023-11-30] VITALS: Ht 167.6 cm; Wt 128.1 kg
[2023-11-30 07:00] VITALS: BP 128/58; O2SAT 93
[~2023-11-30 07:00] MED LIST changes: +ALBUTEROL SULFATE 2.5MG/0.5ML INH NEB SOLN INH PRN; +EPINEPHrine INJ 1 MG/ML 1ML AMP IM PRN; +IMMUNE GLOBULIN 10% 10 GM in IV 1 EA IV ONE; +IMMUNE GLOBULIN 10% 40 GM in IV 1 EA IV ONE; +NS 1,000 ML IV SCH; +SODIUM CHLORIDE 0.9% INJ 10 ML SYR IV PRN; +methylPREDNISolone 125MG 2ML VIAL IV PRN
[2023-11-30] MEDS ORDERED: diphenhydrAMINE 50MG/ML VIAL IV PRN (07:01)
[2023-11-30] MEDS: HYDROCORTISONE 100MG/2ML VIAL IV ONE (07:27)
[2023-11-30] MEDS: ACETAMINOPHEN 650MG PO PRIOR TO INFUSION PO ONE (07:27)
[2023-11-30] MEDS: IMMUNE GLOBULIN 10% 40 GM in IV 1 EA IV ONE (07:32)
[2023-11-30] MEDS: IMMUNE GLOBULIN 10% 10 GM in IV 1 EA IV ONE (07:33)
[2023-11-30] MEDS: SODIUM CHLORIDE 0.9% INJ 10 ML SYR IV SCH (07:37)
[2023-11-30 08:00] VITALS: BP 136/65; O2SAT 97
[2023-11-30 10:20] VITALS: BP 156/74; O2SAT 99
== END 2023-11-30 10:20 ==
LOC: M INFU 07:00
PROVIDERS: ATTEND Nurse Practitioner
DX: G61.81 Chronic inflammatory demyelinating polyneuritis (principal); Z88.8 Allergy status to other drugs, medicaments and biological substances
CPT/HCPCS: 96365; 96366; 96367; J1459; J1720

== ENCOUNTER 2023-12-03 08:55 | Outpatient (CLI) | payer MEDICARE, OTHER ==
[~2023-12-03 08:55] MED LIST changes: -IMMUNE GLOBULIN 10% 10 GM in IV 1 EA IV ONE; -IMMUNE GLOBULIN 10% 40 GM in IV 1 EA IV ONE; -SODIUM CHLORIDE 0.9% INJ 10 ML SYR IV PRN; +diphenhydrAMINE 50MG/ML VIAL IV PRN
[2023-12-03 09:00] VITALS: BP 166/70; O2SAT 96
[2023-12-03] MEDS: HYDROCORTISONE 100MG/2ML VIAL IV ONE (09:09)
[2023-12-03] MEDS: ACETAMINOPHEN 650MG PO PRIOR TO INFUSION PO ONE (09:09)
[2023-12-03] MEDS: IMMUNE GLOBULIN 10% 40 GM in IV 1 EA IV ONE (09:38)
[2023-12-03] MEDS: IMMUNE GLOBULIN 10% 10 GM in IV 1 EA IV ONE (09:39)
[2023-12-03 10:10] VITALS: BP 145/65; O2SAT 97
[2023-12-03 10:40] VITALS: BP 150/71; O2SAT 98
[2023-12-03 13:15] VITALS: BP 155/67; O2SAT 99
[2023-12-03] MEDS ORDERED: SODIUM CHLORIDE 0.9% INJ 10 ML SYR IV PRN (13:25)
== END 2023-12-03 13:15 ==
LOC: M INFU 08:55
PROVIDERS: ATTEND Nurse Practitioner
DX: G61.81 Chronic inflammatory demyelinating polyneuritis (principal); Z88.8 Allergy status to other drugs, medicaments and biological substances
CPT/HCPCS: 96365; 96366; 96367; J1459; J1720

== ENCOUNTER 2023-12-05 07:30 | Outpatient (CLI) | payer MEDICARE, OTHER ==
[2023-12-05 07:30] VITALS: BP 132/63; O2SAT 96
[~2023-12-05 07:30] MED LIST changes: -ALBUTEROL SULFATE 2.5MG/0.5ML INH NEB SOLN INH PRN; -EPINEPHrine INJ 1 MG/ML 1ML AMP IM PRN; +SODIUM CHLORIDE 0.9% INJ 10 ML SYR IV PRN; -diphenhydrAMINE 50MG/ML VIAL IV PRN; -methylPREDNISolone 125MG 2ML VIAL IV PRN
[2023-12-05 08:00] VITALS: BP 148/70; O2SAT 98
[2023-12-05] MEDS: HYDROCORTISONE 100MG/2ML VIAL IV ONE (08:00)
[2023-12-05] MEDS: ACETAMINOPHEN 650MG PO PRIOR TO INFUSION PO ONE (08:00)
[2023-12-05] MEDS: SODIUM CHLORIDE 0.9% INJ 10 ML SYR IV SCH (08:05)
[2023-12-05] MEDS: IMMUNE GLOBULIN 10% 10 GM in IV 1 EA IV ONE (08:06)
[2023-12-05] MEDS: IMMUNE GLOBULIN 10% 40 GM in IV 1 EA IV ONE (08:07)
[2023-12-05 09:30] VITALS: BP 140/65; O2SAT 97
[2023-12-05 11:04] VITALS: BP 142/78; O2SAT 98
== END 2023-12-05 11:05 ==
LOC: M INFU 07:30
PROVIDERS: ATTEND Nurse Practitioner
DX: G61.81 Chronic inflammatory demyelinating polyneuritis (principal); Z88.8 Allergy status to other drugs, medicaments and biological substances
CPT/HCPCS: 96365; 96366; J1459; J1720

== ENCOUNTER 2023-12-07 07:30 | Outpatient (CLI) | payer MEDICARE, OTHER ==
[2023-12-07 07:30] VITALS: BP 145/78; O2SAT 96
[~2023-12-07 07:30] MED LIST changes: +ALBUTEROL SULFATE 2.5MG/0.5ML INH NEB SOLN INH PRN; +EPINEPHrine INJ 1 MG/ML 1ML AMP IM PRN; -SODIUM CHLORIDE 0.9% INJ 10 ML SYR IV PRN; +diphenhydrAMINE 50MG/ML VIAL IV PRN; +methylPREDNISolone 125MG 2ML VIAL IV PRN
[2023-12-07] MEDS: ACETAMINOPHEN TAB 650MG DOSE (2X325MG) PO ONE (07:58)
[2023-12-07] MEDS: HYDROCORTISONE 100MG/2ML VIAL IV ONE (07:58)
[2023-12-07] MEDS: IMMUNE GLOBULIN 10% 40 GM in IV 1 EA IV ONE (08:02)
[2023-12-07] MEDS: IMMUNE GLOBULIN 10% 10 GM in IV 1 EA IV ONE (08:03)
[2023-12-07 08:43] VITALS: BP 134/62; O2SAT 96
[2023-12-07 09:52] VITALS: BP 146/70; O2SAT 97
[2023-12-07 11:20] VITALS: BP 138/78; O2SAT 98
[2023-12-07] MEDS ORDERED: SODIUM CHLORIDE 0.9% INJ 10 ML SYR IV PRN (12:25)
[2023-12-08] MEDS ORDERED: SODIUM CHLORIDE 0.9% INJ 10 ML SYR IV SCH (09:00)
== END 2023-12-07 11:20 | disposition home or self-care (01) ==
LOC: M INFU 07:30
PROVIDERS: ATTEND Nurse Practitioner
DX: G61.81 Chronic inflammatory demyelinating polyneuritis (principal); Z88.8 Allergy status to other drugs, medicaments and biological substances
CPT/HCPCS: 96365; 96366; 96367; J1459; J1720

== ENCOUNTER 2023-12-28 08:05 | Outpatient (CLI) | payer MEDICARE, OTHER ==
[~2023-12-28 08:05] MED LIST changes: +SODIUM CHLORIDE 0.9% INJ 10 ML SYR IV PRN
[2023-12-28 08:15] VITALS: BP 166/84; O2SAT 96
[2023-12-28] MEDS: ACETAMINOPHEN 650MG PO PRIOR TO INFUSION PO ONE (08:20)
[2023-12-28] MEDS: HYDROCORTISONE 100MG/2ML VIAL IV ONE (08:20)
[2023-12-28] MEDS: IMMUNE GLOBULIN 10% 20 GM in IV 1 EA IV ONE (08:26)
[2023-12-28] MEDS: IMMUNE GLOBULIN 10% 40 GM in IV 1 EA IV ONE (08:26)
[2023-12-28] MEDS: IMMUNE GLOBULIN 10% 10 GM in IV 1 EA IV ONE (08:27)
[2023-12-28] MEDS: IMMUNE GLOBULIN 10% 5 GM in IV 1 EA IV ONE (08:28)
[2023-12-28 09:00] VITALS: BP 165/77; O2SAT 98
[2023-12-28 09:30] VITALS: BP 170/75; O2SAT 96
[2023-12-28 10:00] VITALS: BP 159/70; O2SAT 97
[2023-12-28] MEDS: SODIUM CHLORIDE 0.9% INJ 10 ML SYR IV SCH (11:58)
[2023-12-28 12:05] VITALS: BP 150/80; O2SAT 97
== END 2023-12-28 12:05 ==
LOC: M INFU 08:05
PROVIDERS: ATTEND Nurse Practitioner
DX: G61.81 Chronic inflammatory demyelinating polyneuritis (principal); Z88.8 Allergy status to other drugs, medicaments and biological substances
CPT/HCPCS: 96365; 96366; 96375; J1459; J1720

== ENCOUNTER 2024-01-18 09:30 | Outpatient (CLI) | payer MEDICARE, OTHER ==
[~2024-01-18] VITALS: Ht 167.6 cm; Wt 130.0 kg
[~2024-01-18 09:30] MED LIST changes: -SODIUM CHLORIDE 0.9% INJ 10 ML SYR IV PRN
[2024-01-18] MEDS: ACETAMINOPHEN 650MG PO PRIOR TO INFUSION PO ONE (09:36)
[2024-01-18] MEDS: HYDROCORTISONE 100MG/2ML VIAL IV ONE (09:45)
[2024-01-18] MEDS: IMMUNE GLOBULIN 10% 40 GM in IV 1 EA IV ONE (09:47)
[2024-01-18] MEDS: IMMUNE GLOBULIN 10% 20 GM in IV 1 EA IV ONE (09:48)
[2024-01-18] MEDS: IMMUNE GLOBULIN 10% 10 GM in IV 1 EA IV ONE (09:50)
[2024-01-18] MEDS: IMMUNE GLOBULIN 10% 5 GM in IV 1 EA IV ONE (09:50)
[2024-01-18 09:52] VITALS: BP 162/67; O2SAT 96
[2024-01-18 11:00] VITALS: BP 133/62; O2SAT 98
[2024-01-18 12:00] VITALS: BP 134/62; O2SAT 97
[2024-01-18 13:23] VITALS: BP 131/60; O2SAT 95
[2024-01-18] MEDS ORDERED: SODIUM CHLORIDE 0.9% INJ 10 ML SYR IV PRN (13:45)
[2024-01-18] MEDS: SODIUM CHLORIDE 0.9% INJ 10 ML SYR IV SCH (13:47)
== END 2024-01-18 14:00 ==
LOC: M INFU 09:30
PROVIDERS: ATTEND Nurse Practitioner
DX: G61.81 Chronic inflammatory demyelinating polyneuritis (principal); Z88.8 Allergy status to other drugs, medicaments and biological substances
CPT/HCPCS: 96365; 96366; J1459; J1642; J1720

== ENCOUNTER 2024-02-01 15:38 | Outpatient (CLI) | payer MEDICARE, OTHER ==
[~2024-02-01 15:38] MED LIST changes: -ALBUTEROL SULFATE 2.5MG/0.5ML INH NEB SOLN INH PRN; -EPINEPHrine INJ 1 MG/ML 1ML AMP IM PRN; -NS 1,000 ML IV SCH; -diphenhydrAMINE 50MG/ML VIAL IV PRN; -methylPREDNISolone 125MG 2ML VIAL IV PRN
[2024-02-01 16:00] VITALS: BP 146/67; O2SAT 94
[2024-02-01] MEDS: PEGFILGRASTIM 6 MG 0.6ML SYR (NEULASTA) SC ONE (16:29)
[2024-02-01 16:36] VITALS: BP 166/75; O2SAT 98
== END 2024-02-01 16:40 | disposition home or self-care (01) ==
LOC: M INFU 15:38
PROVIDERS: ATTEND Nurse Practitioner Adult Health
DX: D70.1 Agranulocytosis secondary to cancer chemotherapy (principal); Z88.8 Allergy status to other drugs, medicaments and biological substances
CPT/HCPCS: 96372; J2506

== ENCOUNTER 2024-02-08 06:50 | Outpatient (CLI) | payer MEDICARE, OTHER ==
[~2024-02-08] VITALS: Ht 167.6 cm; Wt 129.0 kg
[2024-02-08 06:50] VITALS: BP_SYST 111; BP_SYST 118; BP_DIAS 55; BP_DIAS 83; O2SAT 94
[2024-02-08] MEDS ORDERED: methylPREDNISolone 125MG 2ML VIAL IV PRN (07:01)
[2024-02-08] MEDS ORDERED: EPINEPHrine INJ 1 MG/ML 1ML AMP IM PRN (07:01)
[2024-02-08] MEDS ORDERED: ALBUTEROL SULFATE 2.5MG/0.5ML INH NEB SOLN INH PRN (07:01)
[2024-02-08] MEDS ORDERED: diphenhydrAMINE 50MG/ML VIAL IV PRN (07:01)
[2024-02-08] MEDS: HYDROCORTISONE 100MG/2ML VIAL IV ONE (07:12)
[2024-02-08] MEDS: SODIUM CHLORIDE 0.9% INJ 10 ML SYR IV SCH (07:13)
[2024-02-08] MEDS ORDERED: SODIUM CHLORIDE 0.9% INJ 10 ML SYR IV PRN (07:15)
[2024-02-08] MEDS ORDERED: NS 1,000 ML IV SCH (07:15)
[2024-02-08] MEDS: IMMUNE GLOBULIN 10% 40 GM in IV 1 EA IV ONE (07:53)
[2024-02-08] MEDS: IMMUNE GLOBULIN 10% 20 GM in IV 1 EA IV ONE (07:54)
[2024-02-08] MEDS: IMMUNE GLOBULIN 10% 10 GM in IV 1 EA IV ONE (07:55)
[2024-02-08] MEDS: IMMUNE GLOBULIN 10% 5 GM in IV 1 EA IV ONE (07:55)
[2024-02-08 08:30] VITALS: BP 117/54; O2SAT 97
[2024-02-08 09:00] VITALS: BP 130/60; O2SAT 96
[2024-02-08 09:30] VITALS: BP 165/66; O2SAT 97
[2024-02-08 11:40] VITALS: BP 147/66; O2SAT 97
== END 2024-02-08 11:40 ==
LOC: M INFU 06:50
PROVIDERS: ATTEND Nurse Practitioner
DX: G61.81 Chronic inflammatory demyelinating polyneuritis (principal); Z88.8 Allergy status to other drugs, medicaments and biological substances
CPT/HCPCS: 96365; 96366; 96367; J1459; J1642; J1720

== ENCOUNTER 2024-02-29 07:00 | Outpatient (CLI) | payer MEDICARE, OTHER ==
[~2024-02-29] VITALS: Ht 167.6 cm; Wt 120.9 kg
[~2024-02-29 07:00] MED LIST changes: +NS 1,000 ML IV SCH
[2024-02-29] MEDS ORDERED: diphenhydrAMINE 50MG/ML VIAL IV PRN (07:01)
[2024-02-29] MEDS ORDERED: ALBUTEROL SULFATE 2.5MG/0.5ML INH NEB SOLN INH PRN (07:01)
[2024-02-29] MEDS ORDERED: methylPREDNISolone 125MG 2ML VIAL IV PRN (07:01)
[2024-02-29] MEDS ORDERED: EPINEPHrine INJ 1 MG/ML 1ML AMP IM PRN (07:01)
[2024-02-29] MEDS ORDERED: SODIUM CHLORIDE 0.9% INJ 10 ML SYR IV PRN (07:15)
[2024-02-29 07:20] VITALS: BP 116/56; O2SAT 99
[2024-02-29] MEDS: HYDROCORTISONE 100MG/2ML VIAL IV ONE (07:21)
[2024-02-29] MEDS: ACETAMINOPHEN 650MG PO PRIOR TO INFUSION PO ONE (07:32)
[2024-02-29] MEDS: IMMUNE GLOBULIN 10% 40 GM in IV 1 EA IV ONE (07:39)
[2024-02-29] MEDS: IMMUNE GLOBULIN 10% 20 GM in IV 1 EA IV ONE (07:41)
[2024-02-29] MEDS: IMMUNE GLOBULIN 10% 5 GM in IV 1 EA IV ONE (07:42)
[2024-02-29] MEDS: IMMUNE GLOBULIN 10% 10 GM in IV 1 EA IV ONE (07:42)
[2024-02-29 08:02] VITALS: BP 152/64; O2SAT 96
[2024-02-29 08:30] VITALS: BP 137/64; O2SAT 98
[2024-02-29 09:00] VITALS: BP 137/87; O2SAT 98
[2024-02-29] MEDS: SODIUM CHLORIDE 0.9% INJ 10 ML SYR IV SCH (09:00)
[2024-02-29 10:00] VITALS: BP 140/89; O2SAT 98
[2024-02-29 11:30] VITALS: BP 142/72; O2SAT 99
== END 2024-02-29 11:45 ==
LOC: M INFU 07:00
PROVIDERS: ATTEND Nurse Practitioner
DX: G61.81 Chronic inflammatory demyelinating polyneuritis (principal); Z88.8 Allergy status to other drugs, medicaments and biological substances
CPT/HCPCS: 96365; 96366; 96367; J1459; J1642; J1720

== ENCOUNTER 2024-03-21 07:15 | Outpatient (CLI) | payer MEDICARE, OTHER ==
[~2024-03-21] VITALS: Ht 167.6 cm; Wt 127.3 kg
[2024-03-21 07:15] VITALS: BP 109/53; O2SAT 96
[~2024-03-21 07:15] MED LIST changes: +ALBUTEROL SULFATE 2.5MG/0.5ML INH NEB SOLN INH PRN; +EPINEPHrine INJ 1 MG/ML 1ML AMP IM PRN; +diphenhydrAMINE 50MG/ML VIAL IV PRN; +methylPREDNISolone 125MG 2ML VIAL IV PRN
[2024-03-21] MEDS: ACETAMINOPHEN 650MG PO PRIOR TO INFUSION PO ONE (07:23)
[2024-03-21] MEDS: HYDROCORTISONE 100MG/2ML VIAL IV ONE (07:25)
[2024-03-21] MEDS ORDERED: SODIUM CHLORIDE 0.9% INJ 10 ML SYR IV PRN (07:25)
[2024-03-21] MEDS: IMMUNE GLOBULIN 10% 40 GM in IV 1 EA IV ONE (07:46)
[2024-03-21] MEDS: IMMUNE GLOBULIN 10% 10 GM in IV 1 EA IV ONE (07:47)
[2024-03-21] MEDS: IMMUNE GLOBULIN 10% 20 GM in IV 1 EA IV ONE (07:48)
[2024-03-21] MEDS: IMMUNE GLOBULIN 10% 5 GM in IV 1 EA IV ONE (07:49)
[2024-03-21 08:45] VITALS: BP 138/65; O2SAT 98
[2024-03-21 09:15] VITALS: BP 144/63; O2SAT 98
[2024-03-21 10:15] VITALS: BP 141/70; O2SAT 100
[2024-03-21 11:25] VITALS: BP 140/81; O2SAT 100
[2024-03-21] MEDS: SODIUM CHLORIDE 0.9% INJ 10 ML SYR IV SCH (11:48)
== END 2024-03-21 11:53 ==
LOC: M INFU 07:15
PROVIDERS: ATTEND Nurse Practitioner
DX: G61.81 Chronic inflammatory demyelinating polyneuritis (principal); Z88.8 Allergy status to other drugs, medicaments and biological substances
CPT/HCPCS: 96365; 96366; 96375; J1459; J1642; J1720

== ENCOUNTER 2024-04-11 07:15 | Outpatient (CLI) | payer MEDICARE, OTHER ==
[~2024-04-11] VITALS: Ht 167.6 cm; Wt 128.0 kg
[~2024-04-11 07:15] MED LIST changes: +SODIUM CHLORIDE 0.9% INJ 10 ML SYR IV PRN
[2024-04-11] MEDS: ACETAMINOPHEN 650MG PO PRIOR TO INFUSION PO ONE (07:21)
[2024-04-11] MEDS: HYDROCORTISONE 100MG/2ML VIAL IV ONE (07:21)
[2024-04-11 07:30] VITALS: BP 109/53; O2SAT 95
[2024-04-11] MEDS: IMMUNE GLOBULIN 10% 40 GM in IV 1 EA IV ONE (07:55)
[2024-04-11] MEDS: IMMUNE GLOBULIN 10% 20 GM in IV 1 EA IV ONE (08:00)
[2024-04-11] MEDS: IMMUNE GLOBULIN 10% 5 GM in IV 1 EA IV ONE (08:01)
[2024-04-11] MEDS: IMMUNE GLOBULIN 10% 10 GM in IV 1 EA IV ONE (08:02)
[2024-04-11 08:30] VITALS: BP 130/64; O2SAT 100
[2024-04-11 09:00] VITALS: BP 134/66; O2SAT 100
[2024-04-11 09:30] VITALS: BP 127/61; O2SAT 96
[2024-04-11 11:35] VITALS: BP 139/65; O2SAT 97
== END 2024-04-11 11:30 ==
LOC: M INFU 07:15
PROVIDERS: ATTEND Nurse Practitioner
DX: G61.81 Chronic inflammatory demyelinating polyneuritis (principal); Z88.8 Allergy status to other drugs, medicaments and biological substances
CPT/HCPCS: 96365; 96366; 96375; J1459; J1642; J1720

== ENCOUNTER → 2024-04-17 | Outpatient (CLI) | payer MEDICARE, OTHER ==
[~2024-04-17] MED LIST changes: -ALBUTEROL SULFATE 2.5MG/0.5ML INH NEB SOLN INH PRN; -EPINEPHrine INJ 1 MG/ML 1ML AMP IM PRN; -NS 1,000 ML IV SCH; -SODIUM CHLORIDE 0.9% INJ 10 ML SYR IV PRN; -diphenhydrAMINE 50MG/ML VIAL IV PRN; -methylPREDNISolone 125MG 2ML VIAL IV PRN
== END ==
LOC: M SOG 07:52
PROVIDERS: ATTEND Physician Assistant
DX: M79.645 Pain in left finger(s) (principal)

== ENCOUNTER 2024-05-02 07:00 | Outpatient (CLI) | payer MEDICARE, OTHER ==
[~2024-05-02] VITALS: Ht 167.6 cm; Wt 128.0 kg
[2024-05-02 07:00] VITALS: BP 116/60; O2SAT 95
[~2024-05-02 07:00] MED LIST changes: +NS (Normal Saline) 0.9% 1,000 ML IV SCH; +SODIUM CHLORIDE 0.9% INJ 10 ML SYR IV PRN
[2024-05-02] MEDS ORDERED: methylPREDNISolone 125MG 2ML VIAL IV PRN (07:01)
[2024-05-02] MEDS ORDERED: diphenhydrAMINE 50MG/ML VIAL IV PRN (07:01)
[2024-05-02] MEDS ORDERED: EPINEPHrine INJ 1 MG/ML 1ML AMP IM PRN (07:01)
[2024-05-02] MEDS ORDERED: ALBUTEROL SULFATE 2.5MG/0.5ML INH NEB SOLN INH PRN (07:01)
[2024-05-02] MEDS: ACETAMINOPHEN 650 MG PO ONE (07:44)
[2024-05-02] MEDS: HYDROCORTISONE 100MG/2ML VIAL IV ONE (07:44)
[2024-05-02] MEDS: SODIUM CHLORIDE 0.9% INJ 10 ML SYR IV SCH (07:46)
[2024-05-02] MEDS: IMMUNE GLOBULIN 10% 40 GM in IV 1 EA IV ONE (07:47)
[2024-05-02] MEDS: IMMUNE GLOBULIN 10% 5 GM in IV 1 EA IV ONE (07:48)
[2024-05-02] MEDS: IMMUNE GLOBULIN 10% 10 GM in IV 1 EA IV ONE (07:49)
[2024-05-02] MEDS: IMMUNE GLOBULIN 10% 20 GM in IV 1 EA IV ONE (07:49)
[2024-05-02 08:30] VITALS: BP 134/64; O2SAT 95
[2024-05-02 09:00] VITALS: BP 133/73; O2SAT 96
[2024-05-02 09:30] VITALS: BP 130/71; O2SAT 98
[2024-05-02 10:30] VITALS: BP 136/84; O2SAT 97
[2024-05-02 11:25] VITALS: BP 140/76; O2SAT 98
== END 2024-05-02 11:40 ==
LOC: M INFU 07:00
PROVIDERS: ATTEND Nurse Practitioner
DX: G61.81 Chronic inflammatory demyelinating polyneuritis (principal); Z88.8 Allergy status to other drugs, medicaments and biological substances
CPT/HCPCS: 96365; 96366; 96375; J1459; J1642; J1720

== ENCOUNTER 2024-05-23 07:16 | Outpatient (CLI) | payer MEDICARE, OTHER ==
[2024-05-23 07:10] VITALS: BP 136/58; O2SAT 95
[~2024-05-23 07:16] MED LIST changes: +ALBUTEROL SULFATE 2.5MG/0.5ML INH NEB SOLN INH PRN; +EPINEPHrine INJ 1 MG/ML 1ML AMP IM PRN; +diphenhydrAMINE 50MG/ML VIAL IV PRN; +methylPREDNISolone 125MG 2ML VIAL IV PRN
[2024-05-23] MEDS: ACETAMINOPHEN 650 MG PO ONE (07:41)
[2024-05-23] MEDS: HYDROCORTISONE 100MG/2ML VIAL IV ONE (07:41)
[2024-05-23] MEDS: IMMUNE GLOBULIN 10% 20 GM in IV 1 EA IV ONE (07:44)
[2024-05-23] MEDS: IMMUNE GLOBULIN 10% 40 GM in IV 1 EA IV ONE (07:44)
[2024-05-23] MEDS: IMMUNE GLOBULIN 10% 10 GM in IV 1 EA IV ONE (07:45)
[2024-05-23] MEDS: SODIUM CHLORIDE 0.9% INJ 10 ML SYR IV SCH (07:46)
[2024-05-23] MEDS: IMMUNE GLOBULIN 10% 5 GM in IV 1 EA IV ONE (07:46)
[2024-05-23 09:00] VITALS: BP 110/51; O2SAT 94
[2024-05-23 09:30] VITALS: BP 118/78; O2SAT 96
[2024-05-23 11:40] VITALS: BP 122/58; O2SAT 96
== END 2024-05-23 11:40 | disposition home or self-care (01) ==
LOC: M INFU 07:16
PROVIDERS: ATTEND Nurse Practitioner
DX: G61.81 Chronic inflammatory demyelinating polyneuritis (principal); Z88.8 Allergy status to other drugs, medicaments and biological substances
CPT/HCPCS: 96365; 96366; 96375; J1459; J1642; J1720